=== PATIENT | male | born 1985 | race African-American/Black ===

== ENCOUNTER → 2021-02-17 | Outpatient (CLI) | payer OTHER | LOC: HYPER 10:07 | PROVIDERS: ATTEND Emergency Medicine Emergency Medical Services | DX: E10.622 Type 1 diabetes mellitus with other skin ulcer (principal); L89.314 Pressure ulcer of right buttock, stage 4; L89.220 Pressure ulcer of left hip, unstageable; L89.154 Pressure ulcer of sacral region, stage 4; L89.214 Pressure ulcer of right hip, stage 4; L89.320 Pressure ulcer of left buttock, unstageable; L98.415 Non-pressure chronic ulcer of buttock with muscle involvement without evidence of necrosis; L98.495 Non-pressure chronic ulcer of skin of other sites with muscle involvement without evidence of necrosis; E10.69 Type 1 diabetes mellitus with other specified complication; M46.28 Osteomyelitis of vertebra, sacral and sacrococcygeal region; E10.40 Type 1 diabetes mellitus with diabetic neuropathy, unspecified; E10.21 Type 1 diabetes mellitus with diabetic nephropathy; E10.649 Type 1 diabetes mellitus with hypoglycemia without coma; R26.89 Other abnormalities of gait and mobility; M62.81 Muscle weakness (generalized); D84.9 Immunodeficiency, unspecified; D47.3 Essential (hemorrhagic) thrombocythemia; D64.9 Anemia, unspecified; R63.6 Underweight; G91.9 Hydrocephalus, unspecified; H91.09 Ototoxic hearing loss, unspecified ear; M41.84 Other forms of scoliosis, thoracic region; G93.5 Compression of brain; Z90.79 Acquired absence of other genital organ(s); Z79.4 Long term (current) use of insulin; Z98.2 Presence of cerebrospinal fluid drainage device; Z48.816 Encounter for surgical aftercare following surgery on the genitourinary system; Z90.6 Acquired absence of other parts of urinary tract; Z93.2 Ileostomy status; Z85.51 Personal history of malignant neoplasm of bladder ==

== ENCOUNTER → 2021-03-17 | Outpatient (CLI) | payer OTHER | LOC: HYPER 10:04 | PROVIDERS: ATTEND Emergency Medicine Emergency Medical Services | DX: E10.622 Type 1 diabetes mellitus with other skin ulcer (principal); L89.314 Pressure ulcer of right buttock, stage 4; L89.224 Pressure ulcer of left hip, stage 4; L89.154 Pressure ulcer of sacral region, stage 4; L89.214 Pressure ulcer of right hip, stage 4; L89.320 Pressure ulcer of left buttock, unstageable; L98.415 Non-pressure chronic ulcer of buttock with muscle involvement without evidence of necrosis; L98.495 Non-pressure chronic ulcer of skin of other sites with muscle involvement without evidence of necrosis; E10.621 Type 1 diabetes mellitus with foot ulcer; L89.613 Pressure ulcer of right heel, stage 3; L97.411 Non-pressure chronic ulcer of right heel and midfoot limited to breakdown of skin; E10.69 Type 1 diabetes mellitus with other specified complication; M46.28 Osteomyelitis of vertebra, sacral and sacrococcygeal region; E10.40 Type 1 diabetes mellitus with diabetic neuropathy, unspecified; E10.21 Type 1 diabetes mellitus with diabetic nephropathy; E10.649 Type 1 diabetes mellitus with hypoglycemia without coma; R26.89 Other abnormalities of gait and mobility; M62.81 Muscle weakness (generalized); D84.9 Immunodeficiency, unspecified; D47.3 Essential (hemorrhagic) thrombocythemia; D64.9 Anemia, unspecified; R63.6 Underweight; G91.9 Hydrocephalus, unspecified; H91.09 Ototoxic hearing loss, unspecified ear; M41.84 Other forms of scoliosis, thoracic region; G93.5 Compression of brain; Z90.79 Acquired absence of other genital organ(s); Z79.4 Long term (current) use of insulin; Z98.2 Presence of cerebrospinal fluid drainage device; Z48.816 Encounter for surgical aftercare following surgery on the genitourinary system; Z90.6 Acquired absence of other parts of urinary tract; Z93.2 Ileostomy status; Z85.51 Personal history of malignant neoplasm of bladder ==

== ENCOUNTER 2021-06-03 11:15 | Inpatient (IN) | payer OTHER ==
[~2021-06-03] VITALS: Ht 152.4 cm; Wt 37.0 kg
[2021-06-03 11:16] VITALS: BP 112/68
[2021-06-03 11:40] LABS: HEMOGLOBIN 9.3 gm/dL (14.0-18.0); RBC 3.77 mil/uL (4.50-6.00); WBC 6.4 thou/uL (4.0-11.0)
[2021-06-03 11:41] LABS: ABSOLUTE NEUTROPHILS 4.6 thou/uL (1.4-8.2); EOSINOPHILS 4.7 % (0.0-3.0); HEMATOCRIT 30.3 % (42.0-52.0); LYMPHOCYTES 15.6 % (24.0-44.0); MCH 24.6 pg (26.0-34.0); MCHC 30.6 g/dL (28.0-37.0); MCV 80.4 fL (80.0-100.0); POLYS 72.7 % (36.0-66.0); RDW 20.2 % (10.5-14.5)
[2021-06-03 11:45] LABS: PLATELET COUNT 932 thou/uL (150-400)
--- NOTE | 2021-06-03 11:49 | NUR ---
IV TEAM AT BEDSIDE
[2021-06-03 11:52] LABS: ALBUMIN 1.7 g/dL (3.4-5.0); ANION GAP 7 mmol/L (7-16); BUN 23 mg/dL (7-18); CALCIUM 9.6 mg/dL (8.5-10.1); CHLORIDE 105 mmol/L (98-107); CO2 26 mmol/L (21-32); CREATININE 1.1 mg/dL (0.7-1.3); GLUCOSE 73 mg/dL (74-106); SGOT 17 U/L (15-37); SGPT 12 U/L (16-63); SODIUM 138 mmol/L (136-145); TOTAL BILIRUBIN 0.2 mg/dL (0.2-1.0); TOTAL PROTEIN 8.9 g/dL (6.4-8.2); TROPONIN-I <0.06 ng/mL (<0.06)
[2021-06-03 11:53] LABS: POTASSIUM 2.8 mmol/L (3.5-5.1)
[2021-06-03 15:20] LABS: URINE COLOR YELLOW
[2021-06-03 15:21] LABS: URINE CLARITY CLOUDY
[2021-06-03 15:22] LABS: URINE GLUCOSE-RANDOM* NEGATIVE (Negative); URINE PROTEIN (DIPSTICK) 3+ (Negative)
[2021-06-03 15:23] LABS: URINE KETONES NEGATIVE (Negative); URINE REDUCING SUBSTANCE NEGATIVE
[2021-06-03 15:24] LABS: ICTOTEST (BILI CONFIRMATORY) Negative (Negative); URINE BILIRUBIN NEGATIVE (Negative); URINE BLOOD 3+ (Negative); URINE NITRITE-REFLEX NEGATIVE (Negative)
[2021-06-03 15:25] LABS: SQUAMOUS 0-3 Few /LPF (0-3); URINE UROBILINOGEN 0.2 E.U./dl (0.2-1.0)
[2021-06-03 15:26] LABS: CASTS None Seen /LPF (None Seen); CRYSTALS None Seen /LPF (None Seen); YEAST-REFLEX Present (None Seen)
[2021-06-03 15:39] LABS: URINE LEUKOCYTES-REFLEX 3+ (Negative)
--- NOTE | 2021-06-03 15:44 | EKG ---
[address] [place] [address] ELECTROCARDIOGRAM REPORT Name: LÓPEZ BOLAND Room #: 170-7 ADM IN M.R.#: [id number] Admission: 06/03/21 Attend Phys: Sammy Arriola MD Discharge: Date of : 85 Report #: [id number] 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: : 1985 Requested By: Carlo Blanc Order Number: [id number] MD: Pako Hawley Measurements Intervals [place] Rate: 137 P: 77 CT: 120 QRS: 100 QRSD: 67 T: 38 QT: 297 QTc: 449 Interpretive Statements Sinus tachycardia Probable left atrial enlargement Right axis deviation Consider left ventricular hypertrophy Baseline wander in lead(s) V3,V4,V5 Compared to ECG 03/18/2008 18:04:41 Sinus rhythm no longer present ST (T wave) deviation no longer present Electronically Signed On 06-03-2021 15:44:25 CDT by Pako Hawley [email or web address] <ELECTRONICALLY SIGNED> By: Pako Hawley MD, FAC 06/03/21 1544 [id number] [id number] Pako Hawley MD, [facility] /EPI
[2021-06-03 19:05] VITALS: BP 112/63
[2021-06-03 19:42] VITALS: BP 113/57
[2021-06-03 20:05] VITALS: BP 113/57
[2021-06-03 20:55] VITALS: BP 136/69
[2021-06-04 00:45] VITALS: BP 109/76
[2021-06-04 04:40] LABS: CALCIUM 8.4 mg/dL (8.5-10.1); CREATININE 0.6 mg/dL (0.7-1.3); MAGNESIUM 1.8 mg/dL (1.8-2.4); POTASSIUM 4.2 mmol/L (3.5-5.1)
[2021-06-04 04:45] VITALS: BP 117/77
[2021-06-04 05:16] LABS: HEMATOCRIT 26.3 % (42.0-52.0); MCH 24.9 pg (26.0-34.0); MCHC 30.6 g/dL (28.0-37.0); MCV 81.6 fL (80.0-100.0); RBC 3.22 mil/uL (4.50-6.00); RDW 20.4 % (10.5-14.5); WBC 6.8 thou/uL (4.0-11.0)
[2021-06-04 08:00] VITALS: BP 101/59
[2021-06-04 11:30] VITALS: BP 105/71
--- NOTE | 2021-06-04 12:53 | NUR ---
Calorie count in progress recommend obtain B12, vit D and folate levels If PEG placed, use Jevity 1.5
--- NOTE | 2021-06-04 15:31 | NUR ---
JERRY faxed clincal referral to [facility] fax [phone] on this day
[2021-06-04] MEDS ORDERED: LANTUS SUBQ (16:55)
[2021-06-04] MEDS ORDERED: VITAMIN C500 M2 PO (16:58)
[2021-06-04] MEDS ORDERED: ZINC-22050 MG (17:00)
[2021-06-04] MEDS ORDERED: CHOLECAL DF 951 EACH (17:03)
[2021-06-04] MEDS ORDERED: ZOSYN 3/0.373.375 G3 (17:03)
[2021-06-04] MEDS ORDERED: BACLOFEN5 MG PORT (17:04)
[2021-06-04] MEDS ORDERED: ELIQUIS2.5 MG PO (17:04)
[2021-06-04] MEDS ORDERED: NORCO5 PO (17:05)
[2021-06-04] MEDS ORDERED: SUPER THERAVIT1 EACH (17:06)
[2021-06-04] MEDS ORDERED: LOPRESSOR50 MG PO (17:06)
[2021-06-04] MEDS ORDERED: MIRTAZAPINE7.5 MG (17:07)
--- NOTE | 2021-06-04 17:26 | NUR ---
met with patient, mother at bedside. Patient admits from [facility] technician terminal and repeater care. Sp with [facility] and requested fax updated information. Patient quadriplegic with multiple wounds. Mother reports she is searching for new placement. Gave her resources and reviewed role of casemgt. Plan return to [facility] once stable unless new placement.
[2021-06-04 20:15] VITALS: BP 128/75
[2021-06-05 00:45] VITALS: BP 100/60
--- NOTE | 2021-06-05 01:20 | NUR ---
COPS ACTIVATED FOR DECREASED LOC. PT HAD PRIOR HYPOGLYCEMIC EPISODE EARLIER IN THE NIGHT. UNABLE TO OBTAIN ACCUCHECK BY FINGER STICK. AMP D50 GIVEN X2 WITH PATIENT AWAKENING TO BASELINE NEURO STATUS. DOBHOFF PLACED TO START TF AND CONTINUOUS D10 INFUSION INITIATED. SEE RAPID RESPONSE DOCUMENTATION FOR FURTHER INTERVENTIONS. PT REMAINED ON THE UNIT.
--- NOTE | 2021-06-05 03:57 | NUR ---
PATIENTS CARE WAS ASSUMED AT SHIFT CHAGE. PATIENT WAS ASSESSED AND MEDS WERE PASSED.PATIENT HAS HAD SEVERAL BLOOD SUGAR DIPS LOW 11. 10 DEXTROSE WAS HUNG , A DOBHOOF WAS PLACED. REPORTED BY CT THAT PLACEMENT WAS GOOD A 60 CC SYRINGE OF AIR WAS PUSH TO HEAR AND VERIFY PLACEMENT. AT 0350 TUBE FEEDING STARTED AT 20, TO ADVANCE BY 10 EVERY 6 HOURS WITH GOOD RESIDULE WITH A GOAL AT 65CC/HR MAX.
[2021-06-05 04:45] VITALS: BP 123/71
[2021-06-05 08:00] VITALS: BP 100/63
--- NOTE | 2021-06-05 08:46 | NUR ---
Given extensiveness of wounds, changing tube feed recommendation to Pivot 1.5 to reach goal 40ml/hr. Pivot provides high protein as well as arginine and immune support.
--- NOTE | 2021-06-05 09:22 | NUR ---
SW spoke w/ pt's mother to discuss D/C plan and provided updated phone number for CM for today and 06/06. Pt plan is to return to [facility] upon D/C unless pt and family would like additional referrals sent to other LTC facilites
--- NOTE | 2021-06-05 09:26 | NUR ---
OSTOMY CARE; PT AWAKE, ALERT, COOPERATIVE, UROSTOMY POUCH LEAKING, NEW POUCH JANET PRECUT 1' CONVEX APPLIED, PERISTOMAL SKIN INTACT, URINE CLEAR, CONNECTED TO DEP DRAINAGE, COLOSTOMY POUCH W/ LOOSE EDGES, CHANGED USING 2 PIECE JANET CUT TO FIT APPLIANCE W/ ADAPT RING UNDER WAFER, LOOSE BROWN STOOL NOTED, PERISTOMAL SKIN INTACT, SUPPLIES AT BS, WILL CONT TO FOLLOW RECOMMENDATIONS; CHANGE POUCHES Q 3-5 DAYS AND PRN, EMPTY PRN HANDBAG OPERATOR AWARE
[2021-06-05 12:00] VITALS: BP 109/60
--- NOTE | 2021-06-05 12:15 | HC ---
[facility] [place] [address] CONSULTATION Name: LÓPEZ BOLAND Room #: 213-P ADM IN ..#: [id number] Admission: 06/04/21 Attend Phys: Sammy Arriola MD Discharge: Date of : 85 Report #: [id number] THIS REPORT FOR: cc: FAM - Family physician unknown FAM - Family physician unknown Galdino Nelson MD ~ DATE OF SERVICE: 06/04/2021 INFECTIOUS DISEASE CONSULTATION ATTENDING PHYSICIAN: Dr. Arriola. REASON FOR EVALUATION: Chronic bilateral ischial decubitus ulcers with suspected chronic osteomyelitis. The patient is profoundly malnourished. HISTORY OF PRESENT ILLNESS: The patient examined. 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 He is receiving wound care, although clinically his wounds have not improved. He has poor nutritional status with albumin less than 2. He was seen by the wound care center evaluation suggesting a benefit from supplemental feedings with a percutaneous tube placement. He was admitted due to concerns about occult infection, underwent generalized imaging which showed suspected chronic osteomyelitis involving the ischial site. Sed rate was elevated at 123 and virus testing was negative. He was initiated on empiric therapy with piperacillin, tazobactam as well as vancomycin. He is generally alert, in some moderate degree of pain and discomfort. Denies significant dyspnea or GI-related complaints. ALLERGIES: None known. CURRENT MEDICATIONS: Include insulin lispro, vancomycin, enoxaparin, famotidine, Zosyn, p.r.n. analgesics, antiemetics. PAST MEDICAL HISTORY: As described above, the common variable immune deficiency, bone marrow transplant 4 months, hydrocephalus, DIRECTOR REGULATORY AFFAIRS shunt, scoliosis, neurogenic bladder, now post cystectomy due to carcinoma, history of depression, profound hypoalbuminemia. SOCIAL HISTORY: Occasional ethanol. No illicit drug use. Nonsmoker. FAMILY HISTORY: Noncontributory. [facility] [address] [place] [address] CONSULTATION Name: LÓPEZ BOLAND Room #: 213-P [facility] IN [facility].#: [id number] Admission: 06/04/21 Attend Phys: Sammy Arriola MD Discharge: Date of : 85 Report #: [id number] REVIEW OF SYSTEMS: Otherwise unremarkable. PHYSICAL EXAMINATION: GENERAL: He is cachectic. He is seemingly comprehending. He is responsive. He is chronically ill appearing and undernourished. VITAL SIGNS: Temperature 98.5, pulse 120, respirations 18, blood pressure 105/71. SKIN: Warm, somewhat diaphoretic. HEENT: Normocephalic. Extraocular muscles intact. NECK: Supple. LUNGS: Diminished breath sounds. HEART: Tachycardic, regular. I do not appreciate a murmur. ABDOMEN: Somewhat firm, mildly distended. No peritoneal signs. GENITOURINARY AND RECTAL: Deferred. LABORATORY DATA: Urine culture with growth of Rupali tropicalis. Sed rate as described above is 120. Blood cultures sterile thus far from admission. CRP elevated at 147.1. CBC: White count of 6.8. H and H 8.0 and 26.3. Platelets of 709, that is down from 932, representing a acute phase reactant. Electrolytes: Sodium 150, up from 138. Potassium 4.2, chloride 119, bicarbonate is 21, anion gap of 10. BUN and creatinine of 14 and 0.6. Lactic acid of initially 2.0, now most recently 1.9. IMAGING: Chest showed no PEs, no significant abnormalities. Lungs are clear. CT of the pelvis: Sacral decubitus ulcers overlying the ischial tuberosities, concerning for chronic osteomyelitis. Procalcitonin 0.35 and albumin of 1.7. Total protein of 8.9. ASSESSMENT AND PLAN: Chronic bilateral ischial decubitus ulcers with concerning evidence of possible chronic osteomyelitis. He has had ongoing wound care without healing. Now the plan is I will try to optimize his nutritional status with PEG placement, seems reasonable as a diverting colostomy as well as a urostomy as well. Continue empiric therapy. In the meantime, we will follow postoperatively. Ideally, we would debride the wounds to better assess perhaps cultures, and pathology remains very tenuous at this point, certainly at risk for additional complications. We will add incentive spirometry, extended discussion with the patient and his mother. <ELECTRONICALLY SIGNED> By: Galdino Nelson MD 06/05/21 1215 1428 0002 Galdino Nelson MD /nt
[2021-06-05 12:19] LABS: CALCIUM 8.5 mg/dL (8.5-10.1); CREATININE 1.1 mg/dL (0.7-1.3); MAGNESIUM 1.6 mg/dL (1.8-2.4); POTASSIUM 3.3 mmol/L (3.5-5.1)
--- NOTE | 2021-06-05 14:34 | HC ---
[facility] [place] [address] CONSULTATION Name: LÓPEZ BOLAND Room #: 213-P ADM IN .R.#: [id number] Admission: 06/04/21 Attend Phys: Sammy Arriola MD Discharge: Date of : 85 Report #: [id number] THIS REPORT FOR: cc: FAM - Family physician unknown FAM - Family physician unknown Mika Mathur MD ~ DATE OF SERVICE: 06/04/2021 WOUND CARE CONSULTATION CHIEF COMPLAINT: Anorexia. HISTORY OF PRESENT ILLNESS: This is a 36-year-old black male who resides at [facility] who was admitted through the wound clinic yesterday after being seen by Dr. Joya for significant malnutrition and anorexia. The patient himself is somewhat of a poor historian, but has been seeing my partner, Dr. Oliveira in the wound clinic over the past several weeks for multiple wounds in his lower extremities and ischial regions. Due to the patient's medical condition, he is unable to feed himself. The patient was admitted for anorexia and malnutrition. It was felt the patient would benefit from a PEG tube. The patient and family are supposedly agreeable to this. The patient has had previous debridements of the wounds at [facility], at that time also had urostomy and diverting colostomy placed. The patient is still on PICC line and given IV Zosyn. GI has been consulted about the possible placement of a PEG tube. PAST MEDICAL HISTORY: Significant for scoliosis, hydrocephalus as a child with a PLACE CHANGE ROOF BOLTER shunt, previous bone marrow transplant, neurogenic bladder, status post urostomy and diverting colostomy as well as chronic stage 4 decubitus ulcers in the pelvic region. CURRENT MEDICATIONS: Multiple, I reviewed the patient's medication list. DRUG ALLERGIES: No known drug allergies. SOCIAL HISTORY: The patient resides in a long-term care facility. FAMILY HISTORY: Not pertinent to current medical condition. REVIEW OF SYSTEMS: CONSTITUTIONAL: The patient denies actual fevers or chills. NEUROLOGIC: The patient complains of overall generalized weakness. EYES: No complaints. EARS, NOSE AND THROAT: No complaints. CARDIAC: The patient denies chest pain, palpitations or peripheral edema. RESPIRATORY: The patient denies shortness of breath, cough or wheezes. [address] [address] CONSULTATION Name: LÓPEZ BOLAND Room #: 213-P [facility] IN ..#: [id number] Admission: 06/04/21 Attend Phys: Sammy Arriola MD Discharge: Date of : 85 Report #: [id number] GASTROINTESTINAL: The patient complains of anorexia, but no actual nausea or vomiting. The patient has a colostomy. GENITOURINARY: The patient has a urostomy. MUSCULOSKELETAL: The patient is cachectic with significant muscle wasting. SKIN: There are multiple decubitus ulcers in the bilateral ischial, coccygeal, and left greater trochanteric region. PHYSICAL EXAMINATION: VITAL SIGNS: Temperature 36.5, pulse 120, respirations 18, blood pressure 101/59. GENERAL: This is a cachectic, chronically ill-appearing black male who is in mild distress secondary to symptoms. HEENT: Normocephalic and atraumatic. Mucous membranes are somewhat dry. Pupils are round. Sclerae white. NECK: Without JVD. LUNGS: Slight diminished breath sounds heard throughout. HEART: Tachycardic. ABDOMEN: Soft, nontender. Urostomy and colostomy are in place and functioning. EXTREMITIES: The patient has severe muscle wasting on all extremities. Bilateral heels are intact. Evaluation of sacrococcygeal region reveals a stage 4 decubitus ulcer, which is fairly clean and granulating. There is also bilateral ischial ulcer, stage 4, which are a mix of fibrin, slough, and granulation tissue, but no significant necrotic tissue. Left lateral greater trochanteric region reveals a stage 4 decubitus ulcer, which is approximately 80% granulation tissue, 20% slough. NEUROLOGIC: Cranial nerves 2-12 are grossly intact. Motor and sensory grossly intact. LABORATORY DATA: White count 6.8, hemoglobin 8.0. Sed rate 120. BUN was 14, creatinine 0.6. Lactic acid was 1.9. C-reactive protein is 147. Albumin is 1.7. CT scan of the abdomen and pelvis shows the sacrococcygeal decubitus ulcers as well as right heel ulcers with CT findings consistent for chronic osteomyelitis. IMPRESSION: 1. Stage 4 sacrococcygeal decubitus ulcer with underlying osteomyelitis. 2. Bilateral ischial stage 4 decubitus ulcer with underlying osteomyelitis. 3. Right greater trochanteric decubitus ulcer, stage 4. 4. Anorexia with significant protein-calorie malnutrition with albumin of 1.8. 5. Generalized debility. 6. History of PLACE CHANGE ROOF BOLTER shunt for hydrocephalus. PLAN: At this time, GI has been consulted for PEG tube placement. We are doing a calorie count of the patient at this time as well. The patient is agreeable to the PEG tube. While the patient is here, we will use [employer] wet to dry [address] [address] CONSULTATION Name: LÓPEZ BOLAND Room #: 213-P ADM IN M.R.#: [id number] Admission: 06/04/21 Attend Phys: Sammy Arriola MD Discharge: Date of : 85 Report #: [id number] dressings to all the wounds changed twice daily, covered with an ABD. We will utilize low air loss surface, having turned every 2 hours. The patient is already in protective heel boots, which he wears all times. We will utilize physical and occupational therapies. The patient is able for strengthening. We will continue all other current medications. <ELECTRONICALLY SIGNED> By: Mika Mathur MD 06/05/21 1434 1124 [id number] Mika Mathur MD /nt
--- NOTE | 2021-06-05 15:47 | NUR ---
PT RESTING COMFORTABLY. PT AFEBRILE, ADEQUATE UOP, NO BM, GOOD APPETITE WITH ASSISTANCE. NO PEG TUBE TOMORROW DUE TO PT BEING ON ELIQUIS YESTERDAY AND TODAY. TUBE FEED ALSO BEING INFUSED BY DOBOFF TUBE. COLOSTOMY AND UROSTOMY BAGS WERE CHANGED BY OSTOMY NURSE. WILL DO WOUND CARE THIS AFTERNOON. PT AND FAMILY HAVE BEEN THOUROUGHLY UPDATED AND EDUCATED ON PT CONDITION AND POC. PT SLOWLY PROGRESSING TOWARDS POC. BLOOD SUGARS NOT UNDER CONTROL, PROVIDER AWARE.
[2021-06-05 19:25] VITALS: BP 113/55
[2021-06-06 05:04] VITALS: BP 104/75
[2021-06-06 05:26] LABS: HEMATOCRIT 25.8 % (42.0-52.0); HEMOGLOBIN 7.8 gm/dL (14.0-18.0); MCH 24.5 pg (26.0-34.0); MCHC 30.3 g/dL (28.0-37.0); MCV 80.7 fL (80.0-100.0); RBC 3.2 mil/uL (4.50-6.00); RDW 19.9 % (10.5-14.5); WBC 5.5 thou/uL (4.0-11.0)
--- NOTE | 2021-06-06 05:50 | NUR ---
ASSUMED PT CARE AT 1900, AWAKE, ALERT AND ORIENTED, ABLE TO VOICE HIS NEEDS, SR ON TELE, ASSESSMENTS CHARTED, PAIN MEDS GIVEN BEFORE DRESSING CHANGE, DRESSING CHNAGE COMPLETED, TOLERATED WELL, DUBOFF REINSERTED , AWAITING KUB, TF ON HOLD, BS STILL UNCONTROLLED IN THE 400S D10 PUT ON HOLD, MFEDS GIVEN PER MAR, ADEQUATE URINE OUTPUT, MG AND K+ REPLACED PER PROTOCOL, NO ACUTE DISTRESS NOTED, WILL CONTINUE TO MONITOR AND FOLLOW POC
[2021-06-06 05:51] LABS: CALCIUM 8.8 mg/dL (8.5-10.1); POTASSIUM 3.2 mmol/L (3.5-5.1)
[2021-06-06 08:00] VITALS: BP 91/53
--- NOTE | 2021-06-06 09:52 | NUR ---
JERRY faxed updated clinical to [facility] fax [phone] and informed [facility] liasion.
--- NOTE | 2021-06-06 10:59 | NUR ---
Pt may receive PEG placment per medical team. [facility]. W/U in progress. CM following for continuity of care.
[2021-06-06 12:40] VITALS: BP 112/62
[2021-06-06 15:08] VITALS: BP 115/74
--- NOTE | 2021-06-06 20:07 | NUR ---
ASSUMED CARE SHIFT CHANGE. VSS BP LOW THIS AM METOPROLOL HELD. SHERIF NOT IN CORRECT PLACE, SHERIF REPLACED. KUB ORDERED UNITL VERIFICATION OF TUBE. WOUND CARE COMPLETED BY WOUND RN. PICTURES TAKEN. POTASSIUM REPLACED. UPDATED FAMILY ON POC. APPETITE VERY ADEQUATE THIS SHIFT. UOP ADEQUATE. PLAN FOR POSSIBLE PEG TUBE PLACEMENT DAY TBD. CONT POC. REPORT PASSED ONTO NOC RN.
[2021-06-07 03:51] VITALS: BP 95/66
--- NOTE | 2021-06-07 06:54 | NUR ---
ASSUMED CARE OF PT AT 1900, PT A/O X 4 ASSESSMENT COMPLETED NOTED. WOUND CARE COMPLETED ORDERED, PT TOLERATED WELL WITH PAIN MEDICATION GIVEN PRIOR TO DRESSING CHANGE.TUBE FEED INITIATED AT 20MLS/HR, PT TOLERATED WELL VIA DOBHOFF. WILL CONTINUE TO WORK TOWARDS PT'S POC.
[2021-06-07 06:57] LABS: HEMATOCRIT 27.2 % (42.0-52.0); HEMOGLOBIN 8.2 gm/dL (14.0-18.0); MCH 24.3 pg (26.0-34.0); MCHC 30.2 g/dL (28.0-37.0); MCV 80.5 fL (80.0-100.0); RBC 3.37 mil/uL (4.50-6.00); RDW 19.9 % (10.5-14.5); WBC 7.3 thou/uL (4.0-11.0)
[2021-06-07 07:10] LABS: CALCIUM 8.6 mg/dL (8.5-10.1); MAGNESIUM 1.9 mg/dL (1.8-2.4); POTASSIUM 3.7 mmol/L (3.5-5.1)
[2021-06-07 07:45] VITALS: BP 105/69
[2021-06-07 11:30] VITALS: BP 95/65
--- NOTE | 2021-06-07 15:12 | NUR ---
ASSUMED CARE SHIFT CHANGE. VSS, DENIES PAIN. O2 SATS WNL RA. WOUND CARE COMPLETED PER ORDERS. TURNS. TUBE FEEDS CONTINUE. APPETITE ADEQUATE. NO S/SX ASPIRATION. PLAN FOR PEG TUBE PLACEMENT WEDNESDAY. DENIES NEEDS CURRENTLY. CONT POC. WILL PASS REPORT TO RN.
[2021-06-07 15:45] VITALS: BP 100/60
--- NOTE | 2021-06-07 16:53 | NUR ---
ASSUMED CARE AT 1600. PT VSS WNL. UROSTOMY AND COLOSTOMY IN PLACE AND FUNCTIONING WELL. PT UPDATED AND EDUCATED.
[2021-06-07 20:01] VITALS: BP 110/73
--- NOTE | 2021-06-08 03:02 | NUR ---
ASSUMED PT CARE AT 1900, AWAKE, ALERT AND ORIENTED, ST ON TELE, BP STABLE, MEDS GIVEN PER JAN, DRESSING CHNAGE COMPLETED, DENIES PAIN OR DISCOMFORT, ASSESSMENTS CHARTED, NPO AFTER MIDNIGHT FOR PEG TUBE PLACEMENT, NO NEEDS AT THIS TIME
[2021-06-08 04:17] VITALS: BP 109/75
[2021-06-08 08:53] VITALS: BP 105/68
[2021-06-08 12:00] VITALS: BP 101/63
[2021-06-08 14:47] VITALS: BP 102/68
--- NOTE | 2021-06-08 19:40 | NUR ---
ASSUMED CARE SHIFT CHANGE. VSS. DENIES PAIN. O2 SATS WNL ROOM AIR. WOUND CARE COMPLETED PER ORDERS. TURNS. PT APPETITE ADEQUATE. TUBE FEEDS REMAIN. PLAN FOR PEG TUBE TOMORROW. NPO AT MIDNIGHT. DENIES NEEDS. CONT POC. REPORT PASSED TO [place] RN.
[2021-06-08 20:00] VITALS: BP 109/75
[2021-06-09 04:00] VITALS: BP 106/58
--- NOTE | 2021-06-09 05:11 | NUR ---
PT HAS BEEN NPO SINCE MIDNIGHT FOR EGD/PEG PLACEMENT TODAY; TF OFF SINCE MIDNIGHT. C/O INTERMITTENT BUTTOCK PAIN IN WOUND AREAS. PRN PAIN MEDICATION GIVEN WITH GOOD RELIEF. COMPLETE BED BATH GIVEN DURING THE NIGHT. UROSTOMY AND COLOSTOMY APPLIANCES CHANGED THIS SHIFT THEY WERE LEAKING. DRESSINGS CHANGED TO PRESSURE WOUNDS. REPOSITIONED TO PREVENT FURTHER SKIN BREAKDOWN. PROGRESSING SLOWLY TOWARD POC GOALS. WILL CONTINUE TO MONITOR FURTHER.
[2021-06-09 08:00] VITALS: BP 94/60
[2021-06-09 10:00] LABS: HEMATOCRIT 24.6 % (42.0-52.0); HEMOGLOBIN 7.6 gm/dL (14.0-18.0); MCH 24.4 pg (26.0-34.0); MCHC 30.9 g/dL (28.0-37.0); MCV 79.1 fL (80.0-100.0); RBC 3.11 mil/uL (4.50-6.00); RDW 19.2 % (10.5-14.5); WBC 8.7 thou/uL (4.0-11.0)
--- NOTE | 2021-06-09 10:08 | EKG ---
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 : 1985 Requested By: Teetee Valencia Order Number: [id number] MD: Malvin Loera Measurements Intervals [place] Rate: 126 P: 87 [place]: 117 QRS: 108 QRSD: 62 T: 55 QT: 307 QTc: 445 Interpretive Statements Sinus tachycardia Right axis deviation Baseline wander in lead(s) II Compared to ECG 06/03/2021 11:21:41 No significant changes Electronically Signed On 06-09-2021 10:08:43 CDT by Malvin Loera [email or web address] <ELECTRONICALLY SIGNED> By: Malvin Loera MD, [facility] 06/09/21 1008 D: [id number] 3 Malvin Loera MD, [facility] /EPI
[2021-06-09 13:00] VITALS: BP 128/98
[2021-06-09 13:15] VITALS: BP 155/75
[2021-06-09 13:55] LABS: HEMATOCRIT 30.7 % (42.0-52.0); HEMOGLOBIN 9.7 gm/dL (14.0-18.0); MCH 25.2 pg (26.0-34.0); MCHC 31.6 g/dL (28.0-37.0); MCV 79.6 fL (80.0-100.0); RBC 3.86 mil/uL (4.50-6.00); RDW 19.9 % (10.5-14.5); WBC 4.4 thou/uL (4.0-11.0)
[2021-06-09 13:59] LABS: CALCIUM 9.3 mg/dL (8.5-10.1); CREATININE 0.9 mg/dL (0.7-1.3); MAGNESIUM 1.8 mg/dL (1.8-2.4)
[2021-06-09 14:14] VITALS: BP 120/87
--- NOTE | 2021-06-09 16:30 | NUR ---
ON-GOING ASSESSMENT: CM FAXED UPDATED CLINICAL TO LORETTA WYNN AT [facility] AND NOTIFIED HER. PT HAD EGD WITH PEG PLACEMENT TODAY. CM WILL CONTINUE TO FOLLOW.
[2021-06-09 17:39] LABS: HCO3 24.1 mmol/L (22.0-26.0); PCO2 41.6 mmHg (35.0-45.0); PO2 200.3 mmHg (80.0-100.0); pH 7.381 (7.360-7.450); sO2 99.3 % (92.0-98.0)
[2021-06-09 20:00] VITALS: BP 129/85
--- NOTE | 2021-06-09 20:27 | NUR ---
ASSUMED CARE SHIFT CHANGE. VSS. C/O BOTTOM PAIN MANAGED WITH IV PAIN MEDS. PLAN FOR PEG TUBE PLACEMENT THIS SHIFT. DPOA (MOTHER) WAS CONTACTED TO INFORM OF PROCEDURE, WHEN THIS RN ASKED TO GIVE CONSENT FOR PEG TUBE, MOTHER STATED THE PT IS AWARE AND IS ABLE TO SIGN FOR HIMSELF. PT SIGNED CONSENT AND WHEN EXPLAINED PT WAS UNDERSTANDING OF THE PROCEDURE AND WHY IT WAS NEEDED. S/P PEG TUBE PLACEMENT THIS SHIFT. UPON RETURN PT BECAME NAUSEOUS AND VOMITING, ZOFRAN GIVEN, PT CONT TO VOMIT AND FEEL NAUSEOUS. HR ELEVATED 140S-160S. PHYSICIAN NOTIFIED ORDERS RECEIVED. N/V RELIEF WITH ORDERED MEDS. DILT BOLUS AND GTT ORDERED PER PHYSICIAN ORDERS. HR CONTINUED TO BE ELEVATED 150S-160S WITH GTT. PHYSICIAN NOTIFIED, ORDERS FOR CARDIOLOGY CONSULT. PT SEEN BY CARDIOLOGY, PER SENIOR IT SECURITY ANALYST, BELIEVED THAT PT WAS HYPOVOLEMIC, FLUID BOLUS ORDERED. PT BECAME SOB, DURING ELEVATED HR, 2L O2 PUT ON WITH RELIEF. D DIMER LAB ELEVATED, PHYSICIAN NOTIFIED, ORDERS FOR LOVENOX RECEIVED. ABG ORDERED-REFER TO RESULTS. WOUND CARE NOT COMPLETED PT WAS OFF UNIT AND ALSO PT STATED "CAN WE DO THEM LATER WHEN I START TO FEEL BETTER." MOTHER AT BEDSIDE UPDATED ON POC. PEG TUBE FLUSHED AND MEDS GIVEN THROUGH WITH SUCCESS. DRESSING INTACT. PLAN FOR TUBE FEED INITIATION TOMORROW PER PHYS ORDERS. PT CURRENTLY AWAKE IN BED IN NAP. REPORT PASSED TO NOC RN.
[2021-06-10 04:00] VITALS: BP 116/80
--- NOTE | 2021-06-10 04:23 | NUR ---
Patient making slow progress towards outcome goals. High fall risks, fall precautions in place. Wound care done, turned to sides. Peg intact, used for medications. Nausea and vomiting, relief from Zofran. No food intake. Insulin held, blood sugars monitored. Colostomy draining, intact, Urostomy draining, intact. Tachycardic up to 150, baseline rate 120-130/minute. Morphine given for comfort, heart rate 120's now, rhythm Sinus.
--- NOTE | 2021-06-10 07:15 | EKG ---
[address] [place] [address] ELECTROCARDIOGRAM REPORT Name: LÓPEZ BOLAND Room #: 213-P ADM IN M.R.#: [id number] Admission: 06/04/21 Attend Phys: Sammy Arriola MD Discharge: Date of : 85 Report #: [id number] 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: [id number] : 1985 Requested By: Yeison Gao Order Number: [id number] : Pako Hawley Measurements Intervals [place] Rate: 155 P: 70 KS: 127 QRS: 96 QRSD: 61 T: -43 QT: 253 QTc: 407 Interpretive Statements Sinus tachycardia Borderline right axis deviation Consider left ventricular hypertrophy Borderline T abnormalities, inferior leads Compared to ECG 06/09/2021 16:23:19 T-wave abnormality now present ST (T wave) deviation no longer present Electronically Signed On 06-10-2021 7:15:42 CDT by Pako Hawley [email or web address] <ELECTRONICALLY SIGNED> By: Pako Hawley MD, [facility] 06/10/2115 20 20 Pako Hawley MD, [facility] /EPI
--- NOTE | 2021-06-10 07:15 | EKG ---
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 : 1985 Requested By: Sammy Arriola Order Number: [id number] MD: Pako Hawley Measurements Intervals [place] Rate: 153 P: 69 RI: 98 QRS: 102 QRSD: 106 T: 39 QT: 285 QTc: 455 Interpretive Statements Sinus tachycardia Right axis deviation RSR' in V1 or V2, probably normal variant Artifact in lead(s) V3,V5,V6 and baseline wander in lead(s) V3 Compared to ECG 06/09/2021 09:44:53 RSR' in V1 or V2 now present Electronically Signed On 06-10-2021 7:15:32 CDT by Pako Hawley [email or web address] <ELECTRONICALLY SIGNED> By: Pako Hawley MD, [facility] 06/10/21 0715 1623 1623 Pako Hawley MD, [facility] /EPI
--- NOTE | 2021-06-10 07:27 | NUR ---
Hypoglycemia 48, patient alert but unable to drink liquids now. 1 amp D50 given.
[2021-06-10 08:00] VITALS: BP 101/62
--- NOTE | 2021-06-10 08:15 | NUR ---
When ready to use PEG, restart Pivot 1.5 at 20ml/hr and progress to goal of 40ml/hr. If pt drinking adequately, suggest discontinue IVF and flush PEG with water as needed. Otherwise will need 200ml every 6hr if minimal fluid consumption.
[2021-06-10 09:38] LABS: MCH 24.2 pg (26.0-34.0); MCHC 29.7 g/dL (28.0-37.0); MCV 81.4 fL (80.0-100.0); RDW 19.2 % (10.5-14.5)
[2021-06-10 10:29] LABS: HEMOGLOBIN 7.7 gm/dL (14.0-18.0); PLATELET COUNT 491 thou/uL (150-400); WBC 19.4 thou/uL (4.0-11.0)
[2021-06-10 11:45] LABS: ABSOLUTE NEUTROPHILS 17.8 thou/uL (1.4-8.2); PLATELET ESTIMATE NORMAL
[2021-06-10 12:00] VITALS: BP 103/73
--- NOTE | 2021-06-10 14:49 | NUR ---
ON-GOING ASSESSMENT: CM REVIEWED CHART. PT HAD PEG PLACED 06/09. CM DAXED UPDATED CLINICAL TO TIANNA BURGOS AT [facility] AND ALSO FAXED SUPERVISOR COMPOUNDING AND FINISHING NOTE OF RECS WHEN ABLE TO USE PEG. CM WILL CONTINUE TO FOLLOW TO ASSIST NEEDED.
[2021-06-10 15:35] VITALS: BP 112/92
--- NOTE | 2021-06-10 15:49 | 2DMMODE ---
[facility] [place] [address] 2 D/M-MODE ECHOCARDIOGRAM Name: LÓPEZ BOLAND Room #: 213-P ADM IN M.R.#: [id number] Admission: 06/04/21 Attend Phys: Sammy Arriola MD Discharge: Date of : 85 Report #: [id number] THIS REPORT FOR: cc: FAM - Family physician unknown FAM - Family physician unknown Pako Hawley MD [facility] ~ APPROVED REPORT Study performed: 06/10/2021 14:27:49 EXAM: Comprehensive 2D, Doppler, and color-flow Echocardiogram Patient Location: Bedside Room #: 213 Status: routine BSA: 1.28 HR: 109 bpm BP: 103/73 mmHg Rhythm: Tachycardia Other Information Study Quality: Adequate Indications Diabetes Tachycardia Aortic Valve AoV Peak Lewis.: 1.07 m/s AO Peak Gr.: 4.56 mmHg LVOT Max P.68 mmHg LVOT Max V: 0.82 m/s Pulmonary Valve PV Peak Lewis.: 0.64 m/s PV Peak Gr.: 1.62 mmHg Left Ventricle The left ventricle is normal size. There is normal LV segmental wall motion. There is normal left ventricular wall thickness. Left ventricular systolic function is normal. The left ventricular ejection fraction is within the normal range. LVEF is 55-60%. This study is not technically sufficient to allow evaluation of the LV diastolic function. Right Ventricle The right ventricle is normal size. The right ventricular systolic [facility] [address] [place] [address] 2 D/M-MODE ECHOCARDIOGRAM Name: LÓPEZ BOLAND Room #: 213-P ADM IN M.R.#: [id number] Admission: 06/04/21 Attend Phys: Sammy Arriola MD Discharge: Date of : 85 Report #: [id number] function is normal. Atria The left atrium size is normal. The right atrium size is normal. Aortic Valve The aortic valve is normal in structure. No aortic regurgitation is present. There is no aortic valvular stenosis. Mitral Valve The mitral valve is normal in structure. There is no mitral valve regurgitation noted. No evidence of mitral valve stenosis. Tricuspid Valve The tricuspid valve is normal in structure. There is no tricuspid valve regurgitation noted. Pulmonic Valve The pulmonary valve is normal in structure. There is no pulmonic valvular regurgitation. Great Vessels The aortic root is normal in size. IVC is normal in size and collapses >50% with inspiration. Pericardium There is no pericardial effusion. <Conclusion> Normal left ventricular size/wall thickness Ejection fraction 60% Normal right ventricular size/function Normal aortic/mitral valve structure and function No tricuspid valve insufficiency No pericardial effusion Normal aortic root size. <ELECTRONICALLY SIGNED> By: Pako Hawley MD, [facility] 06/10/21 1549 [id number] [id number] Pako Hawley MD, FACC /INF
[2021-06-10 20:25] VITALS: BP 106/67
[2021-06-10 23:43] LABS: URINE BILIRUBIN NEGATIVE (Negative); URINE BLOOD TRACE (Negative); URINE CLARITY CLEAR; URINE COLOR YELLOW; URINE GLUCOSE-RANDOM* NEGATIVE (Negative); URINE KETONES NEGATIVE (Negative); URINE NITRITE-REFLEX NEGATIVE (Negative); URINE PROTEIN (DIPSTICK) NEGATIVE (Negative); URINE SPECIFIC GRAVITY 1.015 (1.005-1.035); URINE UROBILINOGEN 0.2 E.U./dl (0.2-1.0)
[2021-06-10 23:55] LABS: URINE LEUKOCYTES-REFLEX 1+ (Negative)
[2021-06-11] LABS: SQUAMOUS 0-3 Few /LPF (0-3); URINE RBC 1-2 Rare /HPF (NONE SEEN); URINE WBC-REFLEX 6-15 Few /HPF (0-5)
[2021-06-11 00:01] LABS: CASTS None Seen /LPF (None Seen); CRYSTALS None Seen /LPF (None Seen); MUCUS 0-3 Light strn/LPF (None Seen); YEAST-REFLEX Present (None Seen)
[2021-06-11 04:55] VITALS: BP 108/62
[2021-06-11 07:30] VITALS: BP 96/59
--- NOTE | 2021-06-11 07:40 | NUR ---
ASSUMED CARE OF PT AT 1900, PT IS LETHARGIC WITH MOM AT THE BEDSIDE. ASSESSMENT COMPLETED NOTED. PT WAS SLOW TO RESPOND TO QUESTIONS, DENIES PAIN AT THIS TIME. PT BECAME MORE ALERT T/O SHIFT ABLE TO RESPOND APPROPRIATELY TO ALL QUESTIONS AND STATE NEEDS. PT WAS FEBRILE, MEDICATION GIVEN AND TEMPERATURE DECREASED WNL. TF WAS INCREASED TO 30ML/HR, PT TOLEREATED WELL. WOUND CARE COMPLETED ORDERED. WILL CONTINUE TO WORK TOWARDS POC.
[2021-06-11 11:30] VITALS: BP 91/52
[2021-06-11 15:52] VITALS: BP 101/67
--- NOTE | 2021-06-11 16:19 | NUR ---
FAXED CLINICAL UPDATE AND NEGATIVE COVID RESULT (06/03/21) TO [facility]. [facility] PATIENT. WILL CONFIRM WITH TIANNA/LIAISON THAT SHE RECEIVED. [facility] P [phone]; FAX [phone]; M [phone]
--- NOTE | 2021-06-11 18:02 | NUR ---
Spoke with mother and discussed possible dc to [facility] in am. Updated [facility]. [facility] following
[2021-06-11 20:15] VITALS: BP 94/56
--- NOTE | 2021-06-11 20:25 | NUR ---
RECEIVED THE PATIENT ON BED, CONSCIOUS AND ORIENTED.ON NASAL CANNULA AT 1LPM, SATURATING WELL.NOT IN DISTRESS,TURNED PATIENT SCHEDULED.WOUND DRESSING DONE ASEPTICALLY.COLOSTOMY CARE AND UROSTOMY CARE DONE.PATIENT TOLERATED PEG FEEDING WITH NO RESIDUAL, INCREASED PEG FEEDING TO 40MLS/HR AT 1600H.ALL NEEDS ATTENDED.HANDED OVER TO PI[employer] SALESPERSON FOR FURTHER CARE.
[2021-06-12] VITALS (8 sets, daily range): BP systolic 100–114; BP diastolic 62–72
--- NOTE | 2021-06-12 07:51 | NUR ---
assumed pt care at 1900, pt is awake, alert and oriented, st on tele, denies pain or sob, tf infusing at 40 ml/hr, 100cc residual and nausea noted, relieved by zofran x1, hr in the 130s this am, am lopressor given early, assessmensts as charted, passed on report to day nurse
--- NOTE | 2021-06-12 10:00 | NUR ---
OSTOMY CARE; POUCHES INTACT, NO LEAKAGE, PT STATES CHANGED YESTERDAY, SUPPLIES PLACED AT FOUNDATION ENGINEER INFORMED
--- NOTE | 2021-06-12 14:53 | NUR ---
[facility] UPDATED ON NEED FOR PEG CARE/IV ATB X 3/WOUND CARE. [facility] REFERRAL DISCUSSED WITH THE ATTENDING AND ID. THEY ARE IN AGREEMENT. MECHANICAL CAR CHECKER SPOKE WITH THE PT AT BEDSIDE. HIS MOTHER IS NOT HERE AT THIS TIME. HE HAS BEEN TO [facility]FORE. THE PT DOES HAVE 9 ACUTE HOSPITAL DAYS/60 LIFE TIME RESERVE DAYS AND SECONDARY [place] MEDICAID. HE IS AGREEABLE IF THEY CAN ACCEPT. FACE SHEET FAXED TO THEIR [facility] TO CHECK BENEFITS AND SEE IF THEY CAN ACCEPT HIM AGAIN. [facility] AGREEABLE TO [facility] STAY BEFORE RETURNING THERE. AWAITING RESPONSE FROM [facility]. PT'S MOTHER UPDATED VIA PHONE AND AGREEABLE TO [facility] OR ANOTHER [facility] IF HE QUIALIFIES.
--- NOTE | 2021-06-12 16:33 | NUR ---
Patient c/o nausea, given PRN zofran with some relief. Checked residual at 1625 d/t continued c/o nausea. 350cc residual at that time. Tube feeds stopped and Dr. Zeinab davis. No response at this time.
[2021-06-12 17:05] LABS: ABSOLUTE NEUTROPHILS 8.4 thou/uL (1.4-8.2); BASOPHILS 0.5 % (0.0-2.0); EOSINOPHILS 0.3 % (0.0-3.0); HEMATOCRIT 26.2 % (42.0-52.0); HEMOGLOBIN 7.6 gm/dL (14.0-18.0); LYMPHOCYTES 4.8 % (24.0-44.0); MCH 24.7 pg (26.0-34.0); MCV 85.2 fL (80.0-100.0); MONOCYTES 5.1 % (1.0-8.0); PLATELET COUNT 474 thou/uL (150-400); POLYS 89.3 % (36.0-66.0); RBC 3.08 mil/uL (4.50-6.00); RDW 19.4 % (10.5-14.5); WBC 9.4 thou/uL (4.0-11.0)
[2021-06-12 17:24] LABS: ALBUMIN 1.4 g/dL (3.4-5.0); CALCIUM 8.5 mg/dL (8.5-10.1); CREATININE 0.8 mg/dL (0.7-1.3); POTASSIUM 3.1 mmol/L (3.5-5.1); TOTAL BILIRUBIN 0.4 mg/dL (0.2-1.0); TOTAL PROTEIN 6.3 g/dL (6.4-8.2)
--- NOTE | 2021-06-12 17:30 | NUR ---
Patient had low blood sugar at dinnertime. Patient asymptomatic with these blood sugars with only complaint was nausea, which was present since 11am this morning. Dr. Zeinab davis, no response currently.
--- NOTE | 2021-06-12 17:48 | NUR ---
No response from Dr. Arriola. Dr. Loera here to assess patient. Ok to start D5W at 50cc/hr in addition to current IVF to prevent hypoglycemia since patient is unable to tolerate TF at this time.
--- NOTE | 2021-06-13 05:00 | NUR ---
assumed pt care at change of shift, st on tele, hr in the 130s, denies palpitations or sob, business asst notified, EKG obtained, no new orders received, abdomen firm with nausea and vomiting noted, zofran given with relief, order for KUB and reglan obtained, tube feeding still on hold, 200cc residual from peg tube, pt had a bowel movement, obtained an order for fms, 450 cc of liquid stool emptied from the colostomy, colostomy bag changed this shift, wound care completed, pt tolerated well, bs 49 at 2100, d5 given, fluids changed, bs stable, will continue to monitor closely, no needs at this time, will continue to monitor and follow poc
[2021-06-13 05:17] VITALS: BP 96/60
--- NOTE | 2021-06-13 07:19 | EKG ---
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 : 1985 Requested By: Alanis Headley Order Number: [id number] MD: Pako Hawley Measurements Intervals [place] Rate: 135 P: 67 FL: 121 QRS: 78 QRSD: 67 T: 58 QT: 278 QTc: 417 Interpretive Statements Sinus tachycardia Consider left ventricular hypertrophy Compared to ECG 06/09/2021 18:21:59 T-wave abnormality no longer present Electronically Signed On 06-13-2021 7:18:58 CDT by Pako Hawley [email or web address] <ELECTRONICALLY SIGNED> By: Pako Hawley MD, [facility] 06/13/21717 D: 07/113 3 Pako Hawley MD, FACC /EPI
[2021-06-13 07:45] VITALS: BP 91/54
[2021-06-13 08:21] LABS: CALCIUM 8.7 mg/dL (8.5-10.1); CREATININE 0.9 mg/dL (0.7-1.3)
[2021-06-13 08:32] LABS: POTASSIUM 2.7 mmol/L (3.5-5.1)
[2021-06-13 09:05] LABS: ABSOLUTE NEUTROPHILS 8.1 thou/uL (1.4-8.2); RBC 2.68 mil/uL (4.50-6.00); WBC 9.4 thou/uL (4.0-11.0)
[2021-06-13 09:08] LABS: BASOPHILS 0.1 % (0.0-2.0); EOSINOPHILS 0.6 % (0.0-3.0); HEMATOCRIT 21.5 % (42.0-52.0); LYMPHOCYTES 3.3 % (24.0-44.0); MCH 24.5 pg (26.0-34.0); MCHC 30.5 g/dL (28.0-37.0); MONOCYTES 9.7 % (1.0-8.0); PLATELET COUNT 442 thou/uL (150-400); POLYS 86.3 % (36.0-66.0); RDW 18.8 % (10.5-14.5)
[2021-06-13 09:11] LABS: HEMOGLOBIN 6.6 gm/dL (14.0-18.0); MCV 80.2 fL (80.0-100.0)
[2021-06-13 09:20] LABS: ALBUMIN 1.2 g/dL (3.4-5.0); MAGNESIUM 1.6 mg/dL (1.8-2.4); TOTAL BILIRUBIN 0.5 mg/dL (0.2-1.0); TOTAL PROTEIN 6.5 g/dL (6.4-8.2)
--- NOTE | 2021-06-13 11:21 | NUR ---
Recommend daily bowel regimen to promote daily stools Recommend resume tube feed at 20ml/hr when able and progress back to goal of 40ml/hr if tolerated
[2021-06-13 11:33] LABS: ANISOCYTOSIS 1+; PLATELET ESTIMATE NORMAL
[2021-06-13 11:34] LABS: HYPOCHROMASIA 2+; SCHISTOCYTES 1+; TARGET CELLS 1+
[2021-06-13 13:05] VITALS: BP 107/71
--- NOTE | 2021-06-13 13:46 | NUR ---
VAT CONSULTED FOR PICC PLACEMENT. RIGHT BRACHIAL PICC LINE ATTEMPTED, PER HOSPITAL PICC PLACEMENT POLICY. WOULD NOT THREAD PAST SHOULDER. LEFT IJ 6FR JACC CATHETER PLACED, TRIMMED 25CM WITH 8CM EXTERNAL. RADIOLOGY REPORT THAT LINE TIP TRAJECTS ALONG LEFT SPINE AND CT RECOMMENDED FOR CONFIRMATION. APPEARS TO BE LEFT-SIDED SVC. WILL EITHER NEED TO HAVE IR INJECT FLOURO VIA LINE, FOR CONFIRMATION, OR CT OF CHEST. ALL LUMENS FLUSH WELL AND RETURN BLOOD BRISKLY.
--- NOTE | 2021-06-13 15:11 | NUR ---
POTASSIUM AND MAGNESIUM REPLACEMENT ORDERED THIS MORNING. 1U PRBC ORDERED FOR HGB 6.6, NO SIGNS OF BLEEDING, VITAL SIGNS STABLE. PICC LINE ORDERED PATIENT HAD ONE SITE ACCESS. VASCULAR ACCESS NURSE ATTEMPTED FOR PICC, BUT WAS UNSUCCESSFUL. L IJ PLACED, CXRAY FOR CONFIRMATION OF PLACEMENT WASN'T ABLE TO DISCERN PLACEMENT. IR WAS CONSULTED FOR ASSISTENCE, CT CHEST PLACED.
[2021-06-13 15:33] VITALS: BP 100/66; BP 110/60
--- NOTE | 2021-06-13 15:49 | NUR ---
L IJ PLACEMENT VERIFIED IN PLACE AND OKAY TO USE VIA TELEPHONE ORDER FROM DR. CACERES. TRANSFUSION OF FIRST UNIT OF PRBC STARTED AT 1530.
[2021-06-13 16:30] VITALS: BP 114/68
--- NOTE | 2021-06-13 16:40 | NUR ---
FAXED REFERRAL AND NEGATIVE COVID RESULT (06/03/21) TO [facility]. WILL CONFIRM WITH CORNELIO/LIAISON THAT THEY RECEVIED AND AVAILABILITY. [facility] P [phone]; FAX
--- NOTE | 2021-06-13 17:32 | NUR ---
[facility] accepted [place] medicare days. They will f/u Wednesday and anticipate having a bed then if he is medically stable. Critical labs today and getting a line placed per IR and one unit of blood. Will f/u with all parties on Wednesday.
[2021-06-13 20:25] VITALS: BP 93/48
[2021-06-13 21:15] LABS: CALCIUM 8.5 mg/dL (8.5-10.1); CREATININE 0.9 mg/dL (0.7-1.3); MAGNESIUM 2.2 mg/dL (1.8-2.4)
[2021-06-13 21:18] LABS: POTASSIUM 2.9 mmol/L (3.5-5.1)
[2021-06-14 01:06] LABS: GLYCOHEMOGLOBIN (HGB A1C) 7.3 % (4.8-5.6)
--- NOTE | 2021-06-14 03:27 | NUR ---
Assumed pt care at 1900. Pt is alert and oriented. Non ambulatory. Denies any pain. No sign of distress noted in pt. Assessment completed and documented. Wound care changes done. Scheduled meds administered to pt. No acute event through the night. Continue to monitor. No further needs at this time.
[2021-06-14 04:53] VITALS: BP 112/79
[2021-06-14 07:15] LABS: ABSOLUTE NEUTROPHILS 7.8 thou/uL (1.4-8.2); BASOPHILS 0.1 % (0.0-2.0); EOSINOPHILS 0.7 % (0.0-3.0); HEMATOCRIT 26.5 % (42.0-52.0); HEMOGLOBIN 8.3 gm/dL (14.0-18.0); LYMPHOCYTES 3.2 % (24.0-44.0); MCH 25.3 pg (26.0-34.0); MCHC 31.5 g/dL (28.0-37.0); MCV 80.5 fL (80.0-100.0); MONOCYTES 10.7 % (1.0-8.0); PLATELET COUNT 474 thou/uL (150-400); POLYS 85.3 % (36.0-66.0); RBC 3.29 mil/uL (4.50-6.00); RDW 17.7 % (10.5-14.5); WBC 9.2 thou/uL (4.0-11.0)
[2021-06-14 07:18] LABS: CALCIUM 8.2 mg/dL (8.5-10.1); CREATININE 0.9 mg/dL (0.7-1.3); PHOSPHORUS 1.6 mg/dL (2.6-4.7); POTASSIUM 3.3 mmol/L (3.5-5.1)
[2021-06-14 08:27] VITALS: BP 107/68
--- NOTE | 2021-06-14 11:11 | NUR ---
DISCUSSED WITH DR. VARGAS THAT PATIENT TOLERATED CLEAR LQ DIET OVERNIGHT AND ASKED IF HE WOULD LIKE FOR PATIENT TO BE STARTED BACK ON TUBE FEEDS TODAY. HE ORDERED FOR TFS TO START AT 10ML/HR AND TO ADVANCE 13-4 HOURS BY 10 ML/HR FOR A GOAL OF 40/HR. NO WATER FLUSHES ORDERED. I ALSO MENTIONED AGAIN THE LIQUID STOOL COMING FROM FMS WELL COLONOSCOPY. WILL CONTINUED TO MONITOR, HE ASSESSED PATIENT. APPROX 1HR AFTER CLEAR LQ BREAKFAST (~600ML) PATIENT NOTIFIED THIS RN THAT HE WAS NAUSEATED AND REQUESTED FOR AN EMESIS BASIN. IV ZOFRAN GIVEN ONCE. NO EPISODES OF VOMITING. WILL CONTINUE TO MONITOR AND HOLD TFS AND REASSESS THIS AFTERNOON.
[2021-06-14 11:21] VITALS: BP 112/78
[2021-06-14 16:19] VITALS: BP 103/67
[2021-06-14 21:14] VITALS: BP 95/55
--- NOTE | 2021-06-15 03:50 | NUR ---
Assumed pt care at 1900. Pt is alert and oriented. No sign of distress noted in pt. Assessment completed and documented. Reposisitioning done. Scheduled meds administered to pt. Pain med administered upon request. Continue to monitor. No further needs at this time.
[2021-06-15 04:19] VITALS: BP 91/57
[2021-06-15 07:10] LABS: ABSOLUTE NEUTROPHILS 7.5 thou/uL (1.4-8.2); BASOPHILS 0.3 % (0.0-2.0); EOSINOPHILS 1.3 % (0.0-3.0); HEMATOCRIT 24.5 % (42.0-52.0); HEMOGLOBIN 7.8 gm/dL (14.0-18.0); LYMPHOCYTES 3.1 % (24.0-44.0); MCH 25.5 pg (26.0-34.0); MCHC 31.6 g/dL (28.0-37.0); MCV 80.8 fL (80.0-100.0); MONOCYTES 10.9 % (1.0-8.0); PLATELET COUNT 453 thou/uL (150-400); POLYS 84.4 % (36.0-66.0); RBC 3.04 mil/uL (4.50-6.00); RDW 17.8 % (10.5-14.5); WBC 8.8 thou/uL (4.0-11.0)
[2021-06-15 07:25] LABS: ALBUMIN 1.2 g/dL (3.4-5.0); CALCIUM 8.4 mg/dL (8.5-10.1); MAGNESIUM 1.9 mg/dL (1.8-2.4); PHOSPHORUS 2.6 mg/dL (2.6-4.7); TOTAL BILIRUBIN 0.3 mg/dL (0.2-1.0); TOTAL PROTEIN 6.1 g/dL (6.4-8.2)
[2021-06-15 07:32] LABS: POTASSIUM 2.1 mmol/L (3.5-5.1)
[2021-06-15 08:10] VITALS: BP 96/60
[2021-06-15 11:26] VITALS: BP 105/57
--- NOTE | 2021-06-15 18:20 | NUR ---
VERBAL ORDER OBTAINED FROM DR. CARLSON FOR REMOVAL OF MIDLINE ACCESS
[2021-06-16 04:58] VITALS: BP 106/54
--- NOTE | 2021-06-16 06:12 | NUR ---
PATIENT WAS TURNED EVERY TWO TO THREE HOURS. CHORES WERE GROUPED SO THE PATIENT COULD GET BETTER SLEEP. PATIENT CARES WERE ASSUMED AT SHIFT CHANGE. PATIENT WAS ASSESSED AND MEDS WERE PASSED. DRESSING CHANGES WERE DONE THIS SHIFT TO THE FOUR WOUNDS ON HIS BOTTOM. THIS WAS DONE WET TO DRY ORDERED. ROUNDS WERE DONE. BED ALARM IS ON. PATIENT CONTINUES TO APPER EMACIATED. PILLOWS PLACE UNDER HIS BOTTOM FOR COMFORT.
[2021-06-16 09:02] VITALS: BP 103/97
[2021-06-16 09:53] LABS: BASOPHILS 0.2 % (0.0-2.0); EOSINOPHILS 0.8 % (0.0-3.0); HEMATOCRIT 26.1 % (42.0-52.0); HEMOGLOBIN 8.3 gm/dL (14.0-18.0); MCH 25.6 pg (26.0-34.0); MCHC 31.7 g/dL (28.0-37.0); MCV 80.6 fL (80.0-100.0); MONOCYTES 7.6 % (1.0-8.0); POLYS 89.4 % (36.0-66.0); RBC 3.24 mil/uL (4.50-6.00); RDW 17.7 % (10.5-14.5); WBC 13.4 thou/uL (4.0-11.0)
[2021-06-16 09:54] LABS: PLATELET COUNT 537 thou/uL (150-400)
[2021-06-16 09:58] LABS: CALCIUM 8.3 mg/dL (8.5-10.1); CREATININE 0.8 mg/dL (0.7-1.3); POTASSIUM 3.8 mmol/L (3.5-5.1)
[2021-06-16 10:04] LABS: ALBUMIN 1.3 g/dL (3.4-5.0); MAGNESIUM 1.7 mg/dL (1.8-2.4); TOTAL BILIRUBIN 0.3 mg/dL (0.2-1.0); TOTAL PROTEIN 6.9 g/dL (6.4-8.2)
--- NOTE | 2021-06-16 12:50 | NUR ---
VAT ROUNDING TODAY, LEFT MIDLINE WAS ORDERED TO BE REMOVED YESTERDAY. IT WAS NOT DONE SO REMOVED NOW
--- NOTE | 2021-06-16 13:06 | NUR ---
FAXED CLINICAL UPDATES TO [facility]. WILL CONFIRM WITH CORNELIO/LIAISON THAT THEY RECEIVED AND BED AVAILABILITY. [facility] P [phone]; FAX
[2021-06-16 16:35] VITALS: BP 116/69
[2021-06-16 19:01] LABS: CALCIUM 8.7 mg/dL (8.5-10.1); CREATININE 0.9 mg/dL (0.7-1.3); MAGNESIUM 1.7 mg/dL (1.8-2.4); POTASSIUM 3.9 mmol/L (3.5-5.1)
[2021-06-17 07:24] LABS: ALBUMIN 1.4 g/dL (3.4-5.0); CALCIUM 8.3 mg/dL (8.5-10.1); CREATININE 0.8 mg/dL (0.7-1.3); MAGNESIUM 1.8 mg/dL (1.8-2.4); PHOSPHORUS 2.2 mg/dL (2.5-4.9); POTASSIUM 3.3 mmol/L (3.5-5.1); TOTAL BILIRUBIN 0.2 mg/dL (0.2-1.0); TOTAL PROTEIN 7.4 g/dL (6.4-8.2)
[2021-06-17 07:55] VITALS: BP 109/65
--- NOTE | 2021-06-17 08:03 | NUR ---
PATIENT CARES WERE ASSUMED AT SHIFT CHANGE. PATIENT WAS ASSESSED AND MEDS WERE PASSED.PATIENT DID LOSE MORE WEIGHT FROM YESTERDAY TO TODAY. WT IS DOCUMENTED 82.2 TODAY. PATIENT CONTINUES TO STRUGAL TO GAIN MAAME. DRESSING WERE NOT DONE THIS SHIFT DUE TO THE NURSE THOUGHT THE DAKINS SOLUTION WAS IN CS AND IT WAS REPORTED IT IS WITH THE PHARMACY. LABS WEE DONE. PATIENT IS A/OX4 ACCU CHEECK IS Q4. ROUNDS WERE MADE. THE BED IS IN A LOW AND LOCKED POSITION
--- NOTE | 2021-06-17 08:26 | NUR ---
Note TPN has been started until tube feed tolerance demonstrated. Recommend to continue to trial tube feeds at trickle feed of 5-10 ml per hour.
[2021-06-17 11:30] VITALS: BP 91/53
[2021-06-17 15:55] VITALS: BP 109/68
[2021-06-17 19:56] VITALS: BP 94/60
[2021-06-18 05:09] LABS: CALCIUM 8.8 mg/dL (8.5-10.1); CREATININE 0.7 mg/dL (0.7-1.3); MAGNESIUM 1.9 mg/dL (1.8-2.4); PHOSPHORUS 2.4 mg/dL (2.5-4.9)
[2021-06-18 05:17] VITALS: BP 111/73
--- NOTE | 2021-06-18 05:41 | NUR ---
PT ORIENTEDX4, FOLLOWS, ABLE TO INTERACT WITH STAFF. ENDORSES PAIN IN HEAD AND BUTTOCKS, GIVEN MEDS PER MAR. UROSTOMY BAG CHANGED, ORDERS PUT IN FOR SUPPLIES FOR COLOSTOMY BAG, BATH GIVEN, PT TOLERATED WOUND CHANGES WELL.
[2021-06-18 08:24] VITALS: BP 95/55
[2021-06-18 11:25] VITALS: BP 102/56
--- NOTE | 2021-06-18 15:26 | NUR ---
ON-GOING ASSESSMENT: ESTUARDO SPOKE WITH SW ON THE UNIT. CM FAXED UPDATED CLINICAL TO [facility] AND NOTIFIED CORNELIO IN ADMISSIONS WHO REPORTS THEY ARE JUST AWAITING A BED TO OPEN AND PT IS 6TH ON THE LIST TODAY SHE REPORTS AND ANTICIPATE THEY WILL HAVE A BED SOON. CM WILL CONTINUE TO FOLLOW TO ASSIST NEEDED.
--- NOTE | 2021-06-18 20:18 | NUR ---
ASSESSMENT CHARTED - MEDS PER JAN - PT GIVEN HYDROCODONE FOR PAIN IN BOTTOM AREA WITH MOD EFFECT. PT TURNED . ACCUCHECKS CHRATED - COVERED PER SLIDING SCALE. FECAL MANAGMENT SYSTEM REMAINS INSITU. PETG TUBE FEEDING AT 30 CC FOR THE DAY - TURNED UP TO 40CC AT 1800 AFTER TOLERATING AT 30CC. PT NEEDING TO BE FEED - EATS APPROX 50 -75 % OF MEALS. PRAFO BOOTS INSTU. NO CO'S OF NAUSEA. MOTHER INTO VISIT. WILL BE TRANSFERED TO [facility] WHEN BED AVIALABLE.
[2021-06-18 20:50] VITALS: BP 94/50
[2021-06-19 03:09] VITALS: BP 92/53
[2021-06-19 07:53] VITALS: BP 95/61
--- NOTE | 2021-06-19 11:16 | NUR ---
Vascular access team rounding- central line dressing again loose and line exposed. VAT attempted PICC lines that were unsuccessful due to chronic occlusions- see CT report. Recomend Tunnelled access by IR due to the need for correction access and the inability to keep the dressing occlusive on the neck, leading to a higher risk of a blood stream infection.
[2021-06-19 11:46] VITALS: BP 114/63
[2021-06-19 16:50] VITALS: BP 115/69
--- NOTE | 2021-06-19 16:58 | NUR ---
Spoke with the [facility] this morning. Pt still on the wait list with several ahead of him. They will update in the am regarding if they think they will have a bed open for him in the next day or two. Will follow.
[2021-06-19 17:19] LABS: CALCIUM 8.3 mg/dL (8.5-10.1); PHOSPHORUS 2.2 mg/dL (2.5-4.9); POTASSIUM 3.8 mmol/L (3.5-5.1)
--- NOTE | 2021-06-19 19:42 | NUR ---
ASSESSMENT CHARTED - MEDS PER JAN -- GIVEN HYDROCODONE X 1 DOSE FOR PAIN WITH GOOD RELIEF - PT SLEEPING POST ADMINISTRATION. FRANCIS SMALL AMOUNTS OF DIET AND FLUIDS. PEG TUBE FEEDINGS CONTINUE AT 40 CC FRANCIS WELL NO CO'S OF NAUSEA - CONTINUE TO GET REGLAN Q 6. LIJ TL WITH BLUE PORT NOT WORKING IV THERAPY NOTIFIED AND CATH CORAL PLACED. ACCUCHECKS CHARTED - PT REFUSED SSI AT NOON HE DID NOT WISH TO EAT - WOUND CARE COMPLETED BY NIGHTS THIS AM - HEEL CARE GIVEN. PT TURNED REQUESTED - NO CO'S AT THE PRESENT TIME.
[2021-06-19 20:03] VITALS: BP 101/55
[2021-06-20 04:09] LABS: CALCIUM 8.3 mg/dL (8.5-10.1); CREATININE 0.9 mg/dL (0.7-1.3); MAGNESIUM 1.9 mg/dL (1.8-2.4); PHOSPHORUS 1.6 mg/dL (2.5-4.9); POTASSIUM 3.3 mmol/L (3.5-5.1)
[2021-06-20 04:44] VITALS: BP 104/56
--- NOTE | 2021-06-20 07:11 | NUR ---
ASSESSMENTS CHARTED, MEDS CHARTED GIVEN. PATIENT HAS TRIPLE IJ ON LEFT SIDE. ALL HUBS MARTÍN AND FLUSHED. PATIENT SINUS TACH DURING SHIFT. PATIENT WANTED ALL MEDS THROUGH PEG TUBE, DRINKS ORALY. ACHS WITH COVERAGE. RECEIVING PIVOT TUBE FEED WELL FOOD ORALLY IF HE IS HELPED TO EAT. Q2 TURN DURING NIGHT. FALL PRECAUTIONS DURING SHIFT.
[2021-06-20 07:30] VITALS: BP 106/67
--- NOTE | 2021-06-20 08:40 | NUR ---
PT OFF UNIT TO MRI.
[2021-06-20 11:25] VITALS: BP 104/53
--- NOTE | 2021-06-20 12:13 | NUR ---
[facility] indicates likely no bed til Wednesday. They will call the unit to make arrangements if a bed opens this weekend. [facility] form is on the chart for ambulance transport. [facility] updated on the dc plan. Will follow.
[2021-06-20 16:20] VITALS: BP 135/66
--- NOTE | 2021-06-20 18:00 | NUR ---
CONTINUE Q 2 HOUR TURNS AND DRESSING CHANGES. PT TOLERATED PO FOOD AND REMIANS ON TUBE FEEDS VIA PEG. WILL CONTINUE TO ASSESS.
[2021-06-20 20:19] VITALS: BP 113/75
--- NOTE | 2021-06-21 03:38 | NUR ---
ASSUMED PT CARE AT 1900, ALERT AND ORIENTED, C/O HEADACHE, TYL GIVEN WITH RELIEF, ST ON TELE, DENIES CHEST PAIN OR SOB, WOUND CARE COMPLETED, PAIN MEDS GIVEN POST WOUND CARE WITH RELIEF, INSULIN GIVEN PER SLIDING SCALE, TF INFUSING AT GOAL, NO NAUSEA AND VOMITING NOTED THIS SHIFT, WILL CONTINUE TO MONITOR AND FOLLOW POC
[2021-06-21 04:56] VITALS: BP 111/67
[2021-06-21 08:30] VITALS: BP 102/62
[2021-06-21 11:20] VITALS: BP 110/69
--- NOTE | 2021-06-21 17:52 | NUR ---
VITAL SIGNS STABLE. FMS REMOVED THERE WAS MINIMAL CLEAR MUCOUS OUTPUT. WOUND DRESSING CHANGED. UROSTOMY AND COLOSTOMY REMAIN INTACT WITH GOOD OUTPUT FROM EACH. TOLERATING PO.
[2021-06-21 19:43] VITALS: BP 94/57
--- NOTE | 2021-06-21 23:31 | NUR ---
PT RESTING IN BED WATCHING TV. IVF AND TFEEDING INTACT. UROSOTOMY TO DD BAG. COLOSTOMY INTACT. BILAT PRAFO INTACT. PT C/O HEADACHE PRN PROVIDED. PT OFFERED FLUIDS. BED ALARM ON. PT HAD LOW FSBS PROVIDED SNACK PER PROTOCOL, INCREASED TO 106. PROVIDER TEMPORARY HELP AGENCY REFERRAL CLERK NOTIFIED. ORDER TO HOLD STEFAN MALDONADO.
[2021-06-22 04:01] VITALS: BP 103/62
[2021-06-22 04:42] LABS: CALCIUM 8.7 mg/dL (8.5-10.1); POTASSIUM 3.4 mmol/L (3.5-5.1)
[2021-06-22 04:54] LABS: HEMOGLOBIN 7.3 gm/dL (14.0-18.0); MCH 25.8 pg (26.0-34.0); MCHC 31.8 g/dL (28.0-37.0); MCV 81.1 fL (80.0-100.0); RBC 2.84 mil/uL (4.50-6.00); WBC 8.4 thou/uL (4.0-11.0)
[2021-06-22 07:22] VITALS: BP 105/65
[2021-06-22 11:40] VITALS: BP 108/73
[2021-06-22 16:45] VITALS: BP 136/88
--- NOTE | 2021-06-22 18:02 | NUR ---
VITAL SIGNS STABLE. UROSTOMY BEGAN TO LEAK LATER THIS AFTERNOON, REINFORCED. GOOD OUTPUT FROM COLOSTOMY AND UROSTOMY. DENIES PAIN. HE DID HAVE TWO OCCURANCES OF MUCOUS LIQUID STOOL (MEDIUM AMT), INCONTINENT. FULL BED CHANGE. WOUND CARE PERFORMED TWICE DUE TO SATURATION FROM URINE AND MUCOUS STOOL.
[2021-06-22 20:50] VITALS: BP 136/78
[2021-06-23 05:02] VITALS: BP 138/69
[2021-06-23 08:00] VITALS: BP 110/68
[2021-06-23 11:00] VITALS: BP 105/63
--- NOTE | 2021-06-23 15:56 | NUR ---
NO BED AVAIL AT [facility] TODAY UPDATED PATIENT AND MOTHER.
[2021-06-23 16:40] VITALS: BP 104/64
[2021-06-23 20:30] VITALS: BP 99/60
--- NOTE | 2021-06-24 03:47 | NUR ---
PT IS ALERT AND OREINTED X4. ON ROOM AIR LUNGS ARE DIMINISHED. PT HAS A COLOSTOMY BAG AND UROSTOMY BAG . DRESSING CHANGES DONE TO COCCYX AREA WITH DAKINS WILL ORDER MORE DAKINS FOR DAY SHIFT. TURN Q 2 HOURS FOR NURSING CARE. HAS PIVIOT 1.5 INFUSING AT 30 TOELRATING WELL. DENIES ANY PAIN. CALL LIGHT WITHIN REACH IF NEEDS ASSISTANCE PER NURSING.
[2021-06-24 04:40] VITALS: BP 108/75
[2021-06-24 08:00] VITALS: BP 116/80
--- NOTE | 2021-06-24 08:21 | NUR ---
Pt tube feeding goal is 40ml/hr of Pivot 1.5. Please increase from 30ml/hr to 40ml/hr.
--- NOTE | 2021-06-24 09:20 | NUR ---
OSTOMY CARE; AWAKE, ALERT, COOPERATIVE, BOTH UROSTOMY AND COLOSTOMY POUCHES LEAKING, UROSTOMY LEAKING SPIGET WAS NOT OPEN TO DRAIN INTO DEP DRAINAGE SYSTEM AND BECAME TOO FULL, STOMA PINK VIABLE SLIGHTLY BUDDED W/ CLEAR YELLOW URINE PRESENT, PERISTOMAL SKIN INTACT, CONVEX PRECUT 1'JANET POUCH APPLIED, CONNECTED TO DEP DRAINAGE, COLOSTOMY STOMA RED VIABLE SLIGHTLY BUDDED, PERISTOMAL SKIN INTACT, SOFT BROWN STOOL NOTED, NEW POUCH APPLIED JANET 2 PIECE SYSTEM, SUPPLIES AT , INFORMED VICE PRESIDENT OF TALENT ACQUISITION AND MICROSOFT ACCESS DEVELOPER TO MAKE SURE SPIGET IS OPEN ON UROSTOMY IN ORDER TO DRAIN PROPERLY RECOMMENDATIONS; CHANGE POUCH Q 3-5 DAYS PRN, EMPTY PRN MICROSOFT ACCESS DEVELOPER AWARE
[2021-06-24 11:15] VITALS: BP 113/67
--- NOTE | 2021-06-24 13:38 | NUR ---
no bed avail at [facility] today updated RN, patient and mother.
[2021-06-24 15:00] VITALS: BP 108/51
[2021-06-24 19:27] VITALS: BP 105/67
[2021-06-25 04:51] VITALS: BP 117/66
[2021-06-25 07:35] VITALS: BP 103/55
[2021-06-25 07:38] VITALS: BP 105/55
[2021-06-25 11:32] VITALS: BP 114/67
--- NOTE | 2021-06-25 14:42 | NUR ---
No bed avail at [facility] today. Updated mom and patient. Updated [facility] as well. [facility] following.
[2021-06-25 15:17] VITALS: BP 117/61
--- NOTE | 2021-06-25 18:50 | NUR ---
PT IS AXOX4, PLEASANT. VSS, AFEBRILE, ST ON THE MONITOR. PT HAS PAIN R/T ULCERS IN SACRAL/GLUTEAL REGION. PT IS ON ABX THERAPY. PEG TUBE WITH PIVOT 1.5 AT 40ML/HR. GOAL RATE 40ML/HR. ABX THERAPY CONTINUED. PT HAS L IJ TC. PT HAS UROSTOMY ON RUQ, COLOSTOMY IN LUQ. DR RIOS CONSULTED, CASE MGMT CONSULTED. PT TO EVENTUALLY D/C TO [facility] WHEN PLACEMENT IS AVAILABLE. PT MOTHER CALLED AND INFORMED THAT 06/25/21 STILL NO BEDS AVAILABLE, AND WHERE IN PLACEMENT STATUS LINE HE IS. POC IS TO CONTINUE ABX THERAPY, PROVIDE WOUND CARE. FALL PRECAUTIONS IN PLACE. FREQUENT ROUNDING AND Q2 TURNS.
[2021-06-25 21:09] VITALS: BP 115/73
[2021-06-26 05:45] VITALS: BP 114/67
[2021-06-26 07:20] VITALS: BP 109/70
--- NOTE | 2021-06-26 10:07 | NUR ---
OSTOMY CARE; AWAKE, ALERT, COOPERATIVE, BOTH POUCHES W/ LOOSE EDGES, CHANGE UROSTOMY W/ JANET PRECUT CONVEX 1' POUCH AND CONNECTED TO DEP DRAINAGE, BOTH STOMAS PINK VIABLE, SLIGHTLY BUDDED COLOSTOMY, FLAT STOMA UROSTOMY, PERISTOMAL SKIN BOTH INTACT, NEW POUCH JANET CUT TO FIT APPLIANCE TO COLOSTOMY, SOFT/LOOSE BROWN STOOL NOTED, ADAPT RING APPLIED UNDER WAFER, SUPPLIES AT BS RECOMMENDATIONS; CHANGE Q 2-4 DAYS AND LINING MAKER EMPTY PRN [employer] SOUNDINGS GROUP LEADER AWARE
[2021-06-26 12:53] LABS: HEMATOCRIT 21.8 % (42.0-52.0); HEMOGLOBIN 6.6 gm/dL (14.0-18.0); MCH 24.6 pg (26.0-34.0); MCHC 30.4 g/dL (28.0-37.0); MCV 81.2 fL (80.0-100.0); RBC 2.69 mil/uL (4.50-6.00); RDW 17.8 % (10.5-14.5); WBC 9.6 thou/uL (4.0-11.0)
[2021-06-26 13:18] VITALS: BP 105/61
[2021-06-26 13:21] LABS: CALCIUM 8.5 mg/dL (8.5-10.1); CREATININE 0.9 mg/dL (0.7-1.3); MAGNESIUM 2.1 mg/dL (1.8-2.4); POTASSIUM 4.4 mmol/L (3.5-5.1)
--- NOTE | 2021-06-26 15:32 | NUR ---
Spoke with [facility] this am. No bed available today. They are hoping to have some discharges tomorrow and will let us know if they can admit tomorrow or the weekend. Tele discontinued. Pt likely moving to the 4th floor.
[2021-06-26 15:50] VITALS: BP 104/67
--- NOTE | 2021-06-26 16:49 | NUR ---
ASSUMED CARE AT SHIFT CHANGE. PT A/O X 4. PLESANT AND CALM. AWAITING BED AT [facility]. WOUNDS WITH PINK, HEALING TISSUE. PT GIVEN PAIN MEDS PRN X 1 DOSE WHICH CONTROLLED PAIN WELL. PT HAD GOOD URINE OUTPUT THIS SHIFT. ALSO ATE MEALS WELL TF INFUSING. BG HIGH FOR LUNCH BUT ORDER FOR LANTUS RECEIVED AND GIVEN PER MAR. PT DENIES ANY FURTHER NEEDS TODAY. Q2 TURNS, SANTO PUMP ON BED. REPORT GIVEN TO RODERICK JACOBO FOR PT TO TRANSFER TO ROOM 464 THIS EVENING. WILL CONT TO MONITOR AND FOLLOW POC.
[2021-06-26 19:03] VITALS: BP 108/72
--- NOTE | 2021-06-26 19:35 | NUR ---
PATIENT TRANSFERRED FROM AT APPROX 1800. DENIED PAIN. MOTHER WAS AT BEDSIDE AND FED PATIENT. NO INSULIN GIVEN; NOT INDICATED. VOICED NO FURTHER NEEDS. TOTAL CARE PATIENT, ENDORSED TO CHARGE NURSE
--- NOTE | 2021-06-27 07:38 | NUR ---
Assumed pt's care pm shift. ALert and oriented. Meds given per emar. Dressing changed this am per pt's request. Q2 turn. Pivot 1.5 @4oml/hr goal. Fall precaution in place. Pt slept well this shift. PRN pain med as needed.
[2021-06-27 08:12] VITALS: BP 92/62
--- NOTE | 2021-06-27 15:56 | NUR ---
Spoke with [facility] this am. No bed available today. Cm awaiting determination as to if they have some discharges over the weekend. Contact liaison at the [facility] above to check in the am.
[2021-06-27 16:49] VITALS: BP 90/57
--- NOTE | 2021-06-27 18:20 | NUR ---
ASSUMED CARE OF PT AT 0700 THIS MORNING. PT HAS 3 MAJOR DECUB ULCERS ON BUTTOCKS AND SACRAL AREAS. ALL WOUNDS ARE DRESSED C/D/I AND WERE CHANGED THIS MORNING. CASHIER GAMBLING TO CHANGE TONIGHT. ASSESSMENTS NOTED IN CHART AND OTHERWISE UNREMARKABLE. IJ IN LT NECK. CALL LIGHT AND OTHER NEEDS ARE IN REACH. FALL PRECAUTIONS IN PLACE. MEDS AND TX GIVEN NEEDED AND SCHEDULED. WILL CONTINUE MONITORING AND NOTE ANY CHANGES. AT 1732 TOGGLE PRESS OPERATOR NOTICED PT SWEATING AND LOOKING CONFUSED. TOOK GLUCOSE AND IT WAS CL. ADMIN AMP D50% AND PUT ASIDE 250NL OF D10% JUST FOR PRECAUTIONARY. PT DID EAT 50% OF HIS DINNER AND WAS BROUGHT TO MY ATTENTION THAT PT DID NOT EAT LUNCH. PT IS ON 40ML ON CONTINUOUS TUBE FEEDING. CALLED DR. RIOS TO REPORT THE EVENT AND HE STATED HE WILL CHANGE UP THE MEDS TO REDUCE THE FLUCTUATIONS.
[2021-06-27 20:21] VITALS: BP 105/72
--- NOTE | 2021-06-28 03:16 | NUR ---
PT CARE ASSUMED WITH PT IN BED AT 1900.PT IS A/O X4.PT IS ON BEDREST AND PARAPLEGIC AND ABLE TO CALL OUT AND MAKE NEEDS KNOWN TO STAFF.PT HAS A UROSTOMY AND A COLOSTOMY IN PLACE.PT IS ACCUCHECK Q6H WITH LANTUS AT HS.PT IV ACCESS ON LT IJ TRIPPLE LUMEN SL.PT HAS A PEG TUBE IN PLACE WITH PIVOT 1.5 40ML/HR.PT HAS A DECUB SACRAL ULCER WITH DRESSING BID.PAIN MANAGED WITH NORCO.PT IS ON ROOM AIR.WILL CONTINUE TO MONITOR PER [POC
[2021-06-28 08:00] VITALS: BP 115/74
--- NOTE | 2021-06-28 16:03 | NUR ---
RETURMED TO CARE OF PT AT 0700 THIS MORNING. WAS TOLD BY OFF GOING NURSE THAT HIS BLOOD SUGAR WAS 235 BUT WAS NOT TOLD THAT SHE GAVE HIM INSULIN USING THE MODERATE SLIDING. AT 0830 THIS MORNING PT WENT CL <20MG/DLL AND WAS NOT FEELING WELL. STARTED D10% AT 1000NL/HR TO INCREASE BLOOD SUGAR AND 2BOXES OF APPLE JUICE. PT'S BLOOD SUGAR IMPROVED OVER THE NEXT [address] RIOS TO SEE IF HE WOULD LIKE TO MOVE TO LOW DOSE SLIDING SCALE. I HAVE NOT HEARD BACK FROM HIM YET. I ALSO NOTICED THE FEEDING PUMP HAS NOT BEEN FUNCTIONING PROPERLY AND CHANGED TO THE NEW PUMP. PT HAS BEEN MORE ALERT AND HOLDING BLOOD SUGAR BETTER. ASSESSMENT CHARTED AND OTHERWISE UNREMARKABLE CALL LIGHT AND OTHER NEEDS ARE WITHIN REACH. FALL PRECAUTIONS ARE IN PLACE. MEDS AND TX GIVEN NEEDED AND SCHEDULED. ASSISTED DR. ALANIS IN CHANGING DRESSINGS THIS MORNING. WILL MONITOR AND NOTE ANY CHANGES THIS SHIFT.
[2021-06-28 20:40] VITALS: BP 108/71
--- NOTE | 2021-06-29 07:06 | NUR ---
Assumed pt care at 1900. A/OX4,VSS,tachy on and off. C/o sacral pain upon wound care medicated per EMAR with relief reported as well as repositioned. Urostomy/colostomy patent with adequate output. Left IJ in place,patent and saline locked for now. Pt questioning insulin orders/tube feeding at midnight;informed order is to not mess with it is to be able to determine what changes needs to be made; reassuarance provided to pt that we'll keep monitoring him,verbalized understanding. BS stable at this time. Fall precautions in place.
[2021-06-29 07:52] LABS: POTASSIUM 3.8 mmol/L (3.5-5.1)
[2021-06-29 08:38] VITALS: BP 114/73
[2021-06-29 09:23] LABS: HEMATOCRIT 23.4 % (42.0-52.0); HEMOGLOBIN 7.1 gm/dL (14.0-18.0); MCH 25.6 pg (26.0-34.0); MCHC 30.4 g/dL (28.0-37.0); MCV 84.1 fL (80.0-100.0); RBC 2.78 mil/uL (4.50-6.00); RDW 18.4 % (10.5-14.5); WBC 6.8 thou/uL (4.0-11.0)
--- NOTE | 2021-06-29 15:49 | NUR ---
ASSUMED CARE OF PATIENT AT SHIFT CHANGE. ASSESSMENT CHARTED. MEDICATIONS ADMINISTERED PER EMAR VIA TUBE. VSS. FSBS ELEVATED UPON SHIFT CHANGE. PATIENT IS A&OX4 AND MAKES NEEDS KNOWN. SACRAL WOUNDS CHANGED THIS DAY BY WOUND CARE PHYSICIAN AND NURSE. HEELS REMAIN ELEVATED IN PRAFO BOOTS AND FREQUENT REPOSITIONING COMPLETED Q2HRS OR MORE PER PATIENT REQUEST. AT APPROX 1450 PATIENT CALLED OUT SAYING HE WAS SWEATING; FSBS FOUND TO BE <20; AT APPROX 1515 AFTER FOOD INTAKE & JUICE INTAKE PATIENT BACK TO 84. TUBE FEED ON AT ALL TIMES. PROVIDER NOTIFIED AND AWARE; ORDERS FOLLOWED & PATIENT MONITORED MORE FREQUENTLY. PARTIAL BEDBATH GIVEN THIS DAY; PAIN CONTROLLED W PRN PAIN MEDS. DINNER CALLED INTO FOOD SERVICES FOR PATIENT APPETITE IMPROVENT. CONTINUING FREQUENT MONITORING
[2021-06-29 20:13] VITALS: BP 116/69
--- NOTE | 2021-06-30 02:19 | NUR ---
Assumed pt care at 1900. A/OX4,VSS,blood sugar 354 pt refused sliding scale insulin at HS but took Lantus. Tube feeding infusing w/o any problems,10cc residual noted. Left IJ triple lumed in place and patent. Urostomy/colostomy in place,patent with adequate output. Wound care done at this time w/o any problems voiced. Medicated for pain per EMAR with relief reported. Repositioned 2hrs as tolorated,on a SANTO/Heel protectors in place. Fall precautions in place,will continue to monitor pt.
[2021-06-30 06:10] VITALS: BP 118/76
[2021-06-30 08:19] VITALS: BP 107/62
--- NOTE | 2021-06-30 10:21 | NUR ---
OSTOMY CARE; ALERT, COOPERATIVE, POUCH EDGES LOOSE ON COLOSTOMY, CHANGED USING JANET 2 PIECE SYSTEM W/ ADAPT RING UNDER WAFER, STOMA PINK VIABLE SLIGHTLY BUDDED W/ LOOSE BROWN STOOL NOTED, PERISTOMAL SKIN INTACT, NEW POUCH TO UROSTOMY HOLLSITER 1 ' CONVEX AND CONNECTED TO DEP DRAINAGE SYSTEM, PERISTOMAL SKIN INTACT, CLEAR YELLOW URINE PRESENT, SUPPLIES AT BS RECOMMENDATIONS; CHANGE APPLIANCES Q 3-5 DAYS AND PRN, EMPTY PRN WOODS MANAGER AWARE
[2021-06-30 14:11] LABS: ABSOLUTE RETIC COUNT 0.0491 10^6/uL; OBSERVED RETIC COUNT 2.02 % (0.6-2.6)
[2021-06-30 14:21] LABS: % SATURATION 17 % (20-39); IRON 26 ug/dL (65-175); TIBC 151 ug/dL (250-450)
[2021-06-30 15:26] LABS: FOLIC ACID 24.3 ng/mL (8.6-58.9)
--- NOTE | 2021-06-30 16:01 | NUR ---
CM CHECKED IN WITH DANIE IN ADMISSIONS AT [facility] AND THEY INDICATED PT IS 5TH IN LINE FOR ADMISSION. CM FAXED OVER CLINICAL UPDATES THIS AFTERNOON. CM FOLLOWING REGARDING DC PLANNING.
[2021-06-30 18:00] VITALS: BP 114/69
[2021-06-30 20:32] VITALS: BP 126/71
[2021-06-30 21:05] LABS: IgA 500 mg/dL (90-386); IgG 2793 mg/dL (603-1613); IgM 59 mg/dL (20-172); TESTOSTERONE* 122 ng/dL (264-916)
--- NOTE | 2021-07-01 01:19 | NUR ---
ASSUMED PT CARE 190. PT IS ALERT AND ORIENTED X4. OT HAS A UROSTOMY AND COLOSTOMY BAGS WHICH ARE IN PLACE. WOUND DRGS WAS DONE PER ODERS. PT'S ACHS WAS 364 AT 2126 BUT PT REFUSED LISPRO INSULIN. PT HAS FEEDING RUNNING AT 40ML/HR. PT IS COMPLIANT WITH Q2HR TURN.PT IS CONTACT PRECAUTION FOR HX OF C-DIFF. VS ARE WITHIN NORMAL RANGE AND MEDS ARE GIVEN PER EMAR ORDERS. PT C/O OF PAIN WHICH IS MANAGED BY PRN MEDS. PT DID NOT EXPRESS ANY OTHER CONCERNS AND NO VISIBLE SIGN OF DISTRESS WAS NOTED. FALL PRECAUTIONS IN PLACE WITH CALL LIGHT WITHIN REACH. WILL CONTINUE TO MONITOR.
[2021-07-01 08:13] VITALS: BP 105/67
[2021-07-01 10:07] LABS: KAPPA FREE LIGHT CHAINS 150.1 mg/L (3.3-19.4); KAPPA/LAMBDA RATIO 2.33 (0.26-1.65); LAMBDA FREE LIGHT CHAINS 64.5 mg/L (5.7-26.3)
--- NOTE | 2021-07-01 14:02 | NUR ---
WOUND CARE F/U; WOUNDS OVERALL ARE STABLE EXCEPT FOR SOME SLOUGH IN THE RIGHT BUTTOCKS AREA. NO ODOR, A PINKISH/RED WOUND BED WITH PERIWOUND MASCERATION. I USED BARRIER SWABS TO PROTECT THE PERIWOUND MARGINS. RECCOMENDATIONS: -TURN Q2 HOURS AT A MINIMUM. -CONTIUNE CURRENT WOUND CARE ORDERS WITH JOSHUA/WILFREDO. DISCUSSSED WITH RN.
--- NOTE | 2021-07-01 14:27 | NUR ---
ESTUARDO CHECKED WITH DANIE IN ADMISSIONS AT [facility] THIS AM AND SHE INDICATED THEY WERE ASSESSING BEDS AND SHE'D LET CM KNOW. CM REACHED BACK OUT AT LUNCH TIME AND SHE INDICATED THAT IT DIDN'T LOOK LIKE THEY WOULD HAVE A BED FOR HIM TODAY. CM FOLLOWING REGARDING EENTUAL DC TO [facility].
[2021-07-01 15:20] VITALS: BP 112/65
[2021-07-01 19:07] LABS: ANA INTERPRETATION Negative (())
--- NOTE | 2021-07-01 19:38 | NUR ---
Assumed pt care at 7am.Pt in bed sleeping on and off.Assessment completed.vss. Repositioned q2h for comfort.Complete bath and bed change done by mailing machine assistant early this shift.Pt tolerated meds and tube feeding.Drsg change done to coccyx by wound care nurse this shift.Dr Arriola here,stated that pt will be dc to [facility] whenever bed available.Oral pain med given once this shift with relief.Will continue to monitor.
[2021-07-01 19:46] VITALS: BP 148/82
--- NOTE | 2021-07-02 01:59 | NUR ---
[facility] PT CARE AT 1935. PT IS ALERT AND ORIENTED X4. DRSG COMPLETED. PT IS COMPLIANT WITH Q2HR TURNS. PT HAS PEG WITH FEEDING RUNNING AT 40ML/HR. PT PREFERS TO TAKE ONLY PO PAIN MEDS BY MOUTH AND OTHER PO MEDS THROUGH THE PEG TUBE. PT HAS UROSTOMY, COLOSTOMY AND HEEL BOOTS PROTECTOR IN PLACE. PT TOLERATING RA. VS ARE WITHIN NORMAL RANGE. PT DID NOT VERBALIZE ANY CONCERNS AND NO VISIVLE SIGH OF DISTRESS WAS NOTED. FALL PRECAUTIONS IN PLACE WITH CALL LIGHT WITHIN REACH . WILL CONTINUE TO MONITOR.
[2021-07-02 06:38] VITALS: BP 151/75
[2021-07-02 08:30] VITALS: BP 121/74
[2021-07-02 10:08] LABS: HEPATITIS C VIRUS AB 0.6 (0.0-0.9)
[2021-07-02 15:08] LABS: GLOBULIN TOTAL 5.2 g/dL (2.2-3.9); M-SPIKE Not Observed g/dL (Not Observed)
[2021-07-02 15:45] VITALS: BP 105/60
[2021-07-02 19:58] VITALS: BP 105/72
--- NOTE | 2021-07-03 01:36 | NUR ---
ASSUMED PT CARE AT 1920. PT IS ALERT AND ORIENTED X4. PT HAS UROSTOMY,COLOSTOMY AND HEEL PROTECTOR IN PLACE. DRSG CHANGE DONE.PT IS COMPLIANT WITH Q2HR TURNS. PT ONLY TAKE PO PAIN MEDS BY MOUTH AND PREFERS OTHER PO MEDS VIA PEG TUBE. PT TOLEARTING RA. NEW FEEDING BAG HANGED WHICH IS RUNNING AT 4OML/HR. FALL PRECAUTIONS IN PLACE WITH CALL LIGHT WITHIN REACH. WILL CONTINUE TO MONITOR.
[2021-07-03 08:50] VITALS: BP 122/84
[2021-07-03 14:45] VITALS: BP 123/66
--- NOTE | 2021-07-03 15:49 | NUR ---
NO BED AT [facility] THIS DAY. CM TO CONTINUE TO CALL AND CHECK EACH DAY AND FAX CLINICAL IN EFFORT TO GET PT TO [facility] LEVEL OF CARE.
--- NOTE | 2021-07-03 19:57 | NUR ---
ASSUMED PT CARE THIS AM. PT IS ALERT & ORIENTED X4. PT HAS IV SITE ON L IJ PICC LINE TRIPLE LUMEN. PT HAS NG TUBE RUNNING @ 40ML/HR AND FLUSH WITH 50ML. PT HAS HEEL PROTECTOR BOOTS. DID WOUND DRESSING THIS AFTERNOON WITH NS, DAKINS, ABD AND TAPE. PT IS ACCUCHECK ACHS AND FEEDER. PT C/O OF PAIN AND GIVEN PAIN MEDICATION PER PT REQUEST. GIVEN ALL MEDICATIONS VIA NG TUBE PER PT REQUEST EXCEPT PAIN MEDICATION. PT TOLERATED MEDICATION. NO C/O OF NAUSEA AND VOMITING DURING THE SHIFT. PT HAS UROSTOMY AND COLOSTOMY. PT IS TURN Q2H. PT IS ON ISOLATION PRECAUTION. PT ON THE BED, BED ON THE LOWEST POSITION, SIDE RAILS UP, CALL LIGHT WITHIN REACH. WILL CONTINUE TO MONITOR PT. FOLLOW POC.
[2021-07-03 20:45] VITALS: BP 105/72
--- NOTE | 2021-07-04 07:44 | NUR ---
OSTOMY CARE; AWAKE, ALERT, COOPERATIVE, SPIGET ON UROSTOMY POUCH NOT OPEN IN ORDER TO DRAIN INTO DEP SONI BAG, BAD FULL ALMOST READY TO EXPLODE, SHOWN DIRECTOR LIFE SALES AND RN TO MAKE SURE POUCH SPIGET IS OPEN (TEAR DROP UP) IN ORDER TO DRAIN PROPERLY, NEW POUCH APPLIED POINTING DOWN IN ORDER TO DRAIN BETTER, POUCH WAS ON SIDEWAYS, CONVEX 1' JANET APPLIED AND CONNECTED TO DEP DRAINAGE SYSTEM, NEW POUCH TO COLOSTOMY, BOTH STOMAS REMAIN PINK VIABLE, PERISTOMAL SKIN BOTH STOMAS INTACT, JANET CUT TO FIT POUCH APPLIED TO COLOSTOMY STOMA W/ ADAPT RING UNDER WAFER, SUPPLIES AT BS RECOMMENDATIONS; CHANGE POUCHES Q 3-5 DAYS AND PRN, EMPTY PRN LOCAL AREA NETWORK ADMINISTRATOR AWARE
[2021-07-04 08:01] VITALS: BP 123/71
--- NOTE | 2021-07-04 12:03 | NUR ---
FAXED CLINICAL UPDATES WITH WOUND CARE, RD AND OSTOMY NOTES TO TIANNA/LIAISON AT [facility]. WILL CONFIRM THEY RECEIVED. [facility] [phone]; FAX [phone]; M [phone] TIANNA
[2021-07-04 12:27] LABS: HEMATOCRIT 23.7 % (42.0-52.0)
[2021-07-04 12:28] LABS: HEMOGLOBIN 7.4 gm/dL (14.0-18.0); MCH 26.1 pg (26.0-34.0); MCHC 31.1 g/dL (28.0-37.0); RBC 2.82 mil/uL (4.50-6.00); RDW 19.7 % (10.5-14.5); WBC 9.8 thou/uL (4.0-11.0)
[2021-07-04 12:43] LABS: ALBUMIN 1.8 g/dL (3.4-5.0); CALCIUM 9.2 mg/dL (8.5-10.1); CREATININE 0.9 mg/dL (0.7-1.3); POTASSIUM 4.3 mmol/L (3.5-5.1); TOTAL BILIRUBIN 0.2 mg/dL (0.2-1.0)
[2021-07-04 13:08] LABS: FREE TESTOSTERONE 1.1 pg/mL (8.7-25.1)
[2021-07-04 13:09] LABS: ABSOLUTE NEUTROPHILS 9.1 thou/uL (1.4-8.2)
[2021-07-04 13:12] LABS: ANISOCYTOSIS 1+; PLATELET COUNT 918 thou/uL (150-400)
--- NOTE | 2021-07-04 14:16 | NUR ---
JESSICA INDICATED THAT THEIR CENSUS HAD BEEN CAPPED AT 33 AND THAT THEY ARE NOW ONLY FOCUSING ON VENT PATIENTS WHO CAN'T GO ANYWHERE ELSE. THEY INDICATED THEY DON'T KNOW WHEN THEY WOULD BE ABLE TO ACCEPT PT AND IT WON'T BE ANY TIME SOON. CM NOTIFIED CARE TEAM AND THEY INDICATE THAT IT WOULD BE APPROPRIATE TO REACH OUT TO [facility] PT'S LTC FACILITY HAD IS WILLING TO TAKE PT BACK ON HIS TWO IV ABX. CM REACED OUT TO [facility] IN ADMISSIONS AND SHE INDICATED THAT THEY ARE ABLE TO ACCEPT PT BACK BUT WOULD PREFER TO TAKE HIM WEDNESDAY. CLINICAL UPDATES FAXED. CM TO NOTIFY PT AND MOTHER. CM FOLLOWING REGARDING ANTICPATED DC BACK TO [facility] WEDNESDAY.
[2021-07-04 17:37] VITALS: BP 121/80
--- NOTE | 2021-07-04 18:11 | NUR ---
A/O X 4. rOOM AIR. Bed bound. BS 205 at dinner. Dietian Sury told nurse that his peg feed pivet is on back order and will be swithced to Glucerna 1.2 @ 55 mls/hr once the last bottle of pivet is used. Critical platlet 918. Given norco for wound pain.
[2021-07-04 21:02] VITALS: BP 117/72
--- NOTE | 2021-07-05 08:00 | NUR ---
patient turned q 2 hours. pain controlled this shift. fall precaution in place. patient in bed asleep at this time breathing regular and unlaboured.
[2021-07-05 09:25] VITALS: BP 123/79
[2021-07-05 11:30] LABS: MAGNESIUM 2.1 mg/dL (1.8-2.4); PHOSPHORUS 3.4 mg/dL (2.6-4.7)
[2021-07-05 15:33] LABS: HEMOGLOBIN 7.7 gm/dL (14.0-18.0); MCHC 30.5 g/dL (28.0-37.0)
[2021-07-05 15:35] LABS: ABSOLUTE NEUTROPHILS 11.3 thou/uL (1.4-8.2); BASOPHILS 0.4 % (0.0-2.0); EOSINOPHILS 0.3 % (0.0-3.0); HEMATOCRIT 25.1 % (42.0-52.0); LYMPHOCYTES 5.2 % (24.0-44.0); MCH 25.6 pg (26.0-34.0); MCV 83.9 fL (80.0-100.0); MONOCYTES 2.1 % (1.0-8.0); RBC 2.99 mil/uL (4.50-6.00); RDW 20.9 % (10.5-14.5); WBC 12.2 thou/uL (4.0-11.0)
[2021-07-05 15:43] LABS: PLATELET COUNT 936 thou/uL (150-400)
[2021-07-05 15:53] LABS: ALBUMIN 1.8 g/dL (3.4-5.0); CALCIUM 9.1 mg/dL (8.5-10.1); CREATININE 0.9 mg/dL (0.7-1.3); MAGNESIUM 2.1 mg/dL (1.8-2.4); POTASSIUM 4.2 mmol/L (3.5-5.1); TOTAL BILIRUBIN 0.2 mg/dL (0.2-1.0); TOTAL PROTEIN 8.4 g/dL (6.4-8.2)
[2021-07-05 17:00] LABS: ANISOCYTOSIS 2+; PLATELET ESTIMATE MARKEDLY INCREASED; TARGET CELLS 1+
[2021-07-05 17:35] VITALS: BP 115/73
--- NOTE | 2021-07-05 18:30 | NUR ---
PT ASSESSED AT START OF SHIFT. SPEECH IS DIFFICULT TO UNDERSTAND PT DOES NOT ENUNCIATE WORDS. PAIN CONTROLLED WELL W/ MEDS. BLOOD SUGAR VERY HIGH THIS AM BUT WAS MONITORED CLOSELY AND CAME DOWN. DR. DUMONT NOTIFIED AND SEVERAL CHANGES IN MEDS. PT REPOSITIONED Q2HRS. TUBE FEEDING RESIDUALS 3-4MLS. TUBE FEED STOPPED FOR A WHILE FOR HIGH GLUCOSE AND NOW RUNNING AT 40MLS/HR. MOTHER AT BEDSIDE NOW.
[2021-07-05 20:27] VITALS: BP 111/73
--- NOTE | 2021-07-06 03:04 | NUR ---
PT CARE ASSUMED WITH PT IN BED WITH MUM AT BEDSIDE.PT IS A/O X4.PT IS BEDREST AND PARAPLEGIC.PAIN MANAGED WITH NORCO.PT HAS A COLOSTOMY ,UROSTOMY AND A PEG TUBE IN PLACE.WOUND DRESSING WET TO DRY DONE A ORDERED.PT IS ACCUCHECK Q6H AND HS.PT ON TELE SR/ST.WILL CONTINUE TO MONITOR
[2021-07-06 06:32] LABS: HEMATOCRIT 22.7 % (42.0-52.0); RBC 2.69 mil/uL (4.50-6.00); WBC 8.9 thou/uL (4.0-11.0)
[2021-07-06 06:34] LABS: HEMOGLOBIN 7.1 gm/dL (14.0-18.0); MCH 26.4 pg (26.0-34.0); MCHC 31.2 g/dL (28.0-37.0); MCV 84.6 fL (80.0-100.0); RDW 21.6 % (10.5-14.5)
[2021-07-06 06:36] LABS: PLATELET COUNT 816 thou/uL (150-400)
[2021-07-06 07:07] LABS: CALCIUM 8.6 mg/dL (8.5-10.1); CREATININE 0.8 mg/dL (0.7-1.3); MAGNESIUM 1.8 mg/dL (1.8-2.4); POTASSIUM 3.8 mmol/L (3.5-5.1)
[2021-07-06 07:36] LABS: ABSOLUTE NEUTROPHILS 7.3 thou/uL (1.4-8.2); ANISOCYTOSIS 2+; HYPOCHROMASIA 2+; PLATELET ESTIMATE INCREASED; POLYCHROMASIA SLIGHT
[2021-07-06 07:55] VITALS: BP 106/63
[2021-07-06 14:28] VITALS: BP 117/68
--- NOTE | 2021-07-06 20:47 | NUR ---
GAVE PT ONE UNIT OF pACKED RED BLOOD CELLS PER ORDER. PT VERY LETHARGIC. bED IN LOW POSITION. cALL LIGHT WITHIN REACH.
[2021-07-06 21:32] VITALS: BP 116/73
--- NOTE | 2021-07-07 03:32 | NUR ---
PT CARE ASSUMED WITH PT RESTING IN BED AT SHIFT CHANGE.PT IS A/O X4.PT HAS A COLOSTOMY AND A UROSTOMY.PT IS ACCUCHECK Q6H AND HS.PT HAS A PEG TUBE WITH GLUCERNA 1.2 MIX WITH 1 PACKET WOODY AT 50CC/HR WITH A GOAL RATE OF 55 AND BID FLUSH OF 240ML.PT IS Q2 REPOSITION AND CALLS APPROPRIETELY FOR HELP.PT HAS NORCO FOR PAIN MGT PRN.IV ACCESS LT IJ TRIPPLE LUMEN SL.WOUND DRESSING WET TO DRY DONE DURING SHIFT.SLIDING SCALE INSULIN GIVEN ORDERED.WILL CONTINUE TO MONITOR
--- NOTE | 2021-07-07 07:27 | EKG ---
[address] [place] [address] ELECTROCARDIOGRAM REPORT Name: LÓPEZ BOLAND Room #: 464-P ADM IN M.R.#: [id number] Admission: 06/04/21 Attend Phys: Sammy Arriola MD Discharge: Date of : 85 Report #: [id number] [facility] Test Date: 2021-07-05 Test Time: 10:41:49 Pat Name: LÓPEZ BOLAND Department: Room: 464 P Gender: M Storm Chaser: : 1985 Requested By: Belinda Dong Order Number: [id number] MD: Pako Hawley Measurements Intervals [place] Rate: 139 P: 69 ND: 126 QRS: 87 QRSD: 65 T: 32 QT: 300 QTc: 456 Interpretive Statements Sinus tachycardia Ventricular premature complex Aberrant complex Consider right atrial enlargement Abnormal R-wave progression, late transition Consider left ventricular hypertrophy Compared to ECG 06/13/2021 01:14:04 Ventricular premature complex(es) now present Aberrant conduction of supraventricular beat(s) now present ST (T wave) deviation now present Electronically Signed On 07-07-2021 7:27:14 CDT by Pako Hawley [email or web address] <ELECTRONICALLY SIGNED> By: Pako Hawley MD, FACC 07/07/21 0727 1041 1041 Pako Hawley MD, FAC /EPI
[2021-07-07 08:10] VITALS: BP 110/71
--- NOTE | 2021-07-07 08:13 | NUR ---
OSTOMY CARE; AWAKE, ALERT, COOPERATIVE, POUCH EDGES LOOSE, CHANGED UROSTOMY POUCH W/ JANET CONVEX 1 11/22' & CONNECTED TO DEP DRAINAGE, URINE YELLOW CLEAR, PERISTOMAL SKIN INTACT, STOMA PINK VIABLE FLAT W/ SKIN SURFACE, COLOSTOMY POUCH CHANGED USING 2 PIECE JANET CUT TO FIT APPLIANCE, W/ ADAPT RING UNDER WAFER, STOMA PINK VIABLE SLIGHTLY BUDDED, PERISTOMAL SKIN INTACT, LOOSE BROWN STOOL NOTED, SUPPLIES AT BS RECOMMENDATIONS; CHANGE POUCHES Q 2-4 DAYS AND PRN, EMTPY PRN RAILROAD FIRER/FIREMAN AWARE
--- NOTE | 2021-07-07 12:10 | NUR ---
CM REACHED OUT TO [facility] THIS AM AND THEY INDICATED THAT THEY ARE ANTICIPATING DC POSSIBLE OPEN BEDS THIS WEEK. CM FAXED CLINICAL INFO OVER FOR REVIEW FOR POSSIBLE ADMISSION. CM HAD ALSO UPDATED [facility]. CM AWAITING DETRMINATION OF LT[facility] VS. DC BACK [facility] AT THIS TIME.
[2021-07-07 16:30] VITALS: BP 116/73
--- NOTE | 2021-07-07 16:39 | NUR ---
THIS RN AGREES WITH THE CITY LETTER CARRIER ASSESSMENT.
[2021-07-07 21:11] VITALS: BP 110/78
--- NOTE | 2021-07-08 03:31 | NUR ---
ASSUMED CARE OF PT AT SHIFT CHANGE. PT IS AOX4 AND LETS NEEDS BE KNOWN. FALL PRECAUTION IN PLACE. PT TURNED Q2H. UROSTOMY AND COLOSTOMY IN PLACE. ISOLATION FOR CDIFF CONTINUED. WOUND CARE COMPLETED PER ORDER. PT REPORTED SOME PAIN AND PRNS WERE PROVIDED. PT DENIED NAUSEA OR SOA. PT WAS ABLE TO GET COMFORTABLE AND SLEEP PART OF THE SHIFT. TF CONTINUED AT GOAL RATE. VSS AND NO S/S OF ACUTE DISTRESS. WILL CONTINUE TO MONITOR.
[2021-07-08 10:33] LABS: HEMATOCRIT 31.5 % (42.0-52.0); MCH 26.7 pg (26.0-34.0); MCHC 31.9 g/dL (28.0-37.0); MCV 83.9 fL (80.0-100.0); RBC 3.76 mil/uL (4.50-6.00); RDW 20.1 % (10.5-14.5)
[2021-07-08 10:41] LABS: CALCIUM 9.2 mg/dL (8.5-10.1); CREATININE 0.9 mg/dL (0.7-1.3)
[2021-07-08 10:42] LABS: MAGNESIUM 1.9 mg/dL (1.8-2.4)
[2021-07-08] MEDS ORDERED: PREDNISONE 20 M20 M1 PER TUBE (14:43)
[2021-07-08] MEDS ORDERED: VANCOMYCIN500 MG/101 IV (14:43)
[2021-07-08] MEDS ORDERED: PEPCID20 MG PO (14:43)
[2021-07-08] MEDS ORDERED: VANCOMYCIN HCL250 M1 PER TUBE (14:43)
[2021-07-08] MEDS ORDERED: HUMALOG100 UNIT/1 SUBQ (14:43)
[2021-07-08] MEDS ORDERED: FLORANEX GRANU1 EACH PO (14:43)
[2021-07-08] MEDS ORDERED: ACETAMINOPHEN325 M1 PO (14:43)
[2021-07-08] MEDS ORDERED: LANTUS SUBQ (14:43)
[2021-07-08] MEDS ORDERED: ZOSYN 3.373.375 GM/1 IV (14:43)
--- NOTE | 2021-07-08 15:04 | NUR ---
[facility] DOESN[facility]T HAVE A BED TO ACCEPT PT THIS DAY. CM NOTIFIED PHYSICIAN, PT, AND PT'S MOTHER. PT IS TO DC BACK TO [facility] TODAY. CM ARRANGED STRETCHER TRANSPORT THROUGH [facility] BETWEEN [phone]. CHART COPY MADE. ORDERS FAXED. NURSE GIVEN NUMBER FOR REPORT. NO OTHER CM INTERVENTION INDICATED. CASE CLOSED.
--- NOTE | 2021-07-08 15:24 | NUR ---
ASSUMED CARE OF PATIENT ON 07/07 & 07/08. ASSESSMENTS CHARTED. MEDICATIONS ADMINISTERED PER EMAR. VSS. PATIENT IS A&OX4 AND ABLE TO MAKES NEEDS KNOWN. WOUND CARE COMPLETE X2. SHRUTHI OSTOMY NURSE CHANGED OSTOMY 07/07 AM AND ROLANDO, REPAIRER PUMP COMPLETED WOUND CARE & TOOK PHOTO BEFORE DISCHARGE. PATIENT TO BE DISCHARGED BACK TO [facility]. IJ WILL STAY IN PLACE WELL SP CATH, OSTOMY & PRAFO BOOTS. REPORT WAS ATTEMPTED TO BE GIVEN TO NURSE AT [facility] BUT SHE REFUSED AT THE MOMENT BECAUSE SHE "DID NOT KNOW WHAT BED HE IS GOING TO" WILL ATTEMPT LATER
== END 2021-07-08 18:57 | DRG 871 ==
LOC: ER 11:15 → EROBS 15:14 → 2N 20:54 → 4W 06-04 10:43 → 2N 06-04 10:43 → 4W 06-26 17:38
PROVIDERS: Anesthesiology; Hospitalist; Internal Medicine; Nurse Practitioner Family; Physician Assistant; Specialist; ADMIT Internal Medicine; ATTEND Internal Medicine
PROC: 30233N1 Transfusion of Nonautologous Red Blood Cells into Peripheral Vein, Percutaneous Approach (ICD-10-PCS; principal; 2021-06-05)
PROC: 0DH68UZ Insertion of Feeding Device into Stomach, Via Natural or Artificial Opening Endoscopic (ICD-10-PCS; 2021-06-09)
PROC: 05HY33Z Insertion of Infusion Device into Upper Vein, Percutaneous Approach (ICD-10-PCS; 2021-06-13)
DX: A41.9 Sepsis, unspecified organism (principal); L89.154 Pressure ulcer of sacral region, stage 4; L89.324 Pressure ulcer of left buttock, stage 4; L89.314 Pressure ulcer of right buttock, stage 4; E43 Unspecified severe protein-calorie malnutrition; G92 Toxic encephalopathy; G82.50 Quadriplegia, unspecified; R64 Cachexia; N39.0 Urinary tract infection, site not specified; A04.72 Enterocolitis due to Clostridium difficile, not specified as recurrent; G91.9 Hydrocephalus, unspecified; M46.28 Osteomyelitis of vertebra, sacral and sacrococcygeal region; M86.8X8 Other osteomyelitis, other site; G82.20 Paraplegia, unspecified; N17.9 Acute kidney failure, unspecified; D68.59 Other primary thrombophilia; Z68.1 Body mass index [BMI] 19.9 or less, adult; Z94.81 Bone marrow transplant status; E87.6 Hypokalemia; Z20.822 Contact with and (suspected) exposure to COVID-19; D47.3 Essential (hemorrhagic) thrombocythemia; I95.9 Hypotension, unspecified; N31.9 Neuromuscular dysfunction of bladder, unspecified; R53.81 Other malaise; E11.69 Type 2 diabetes mellitus with other specified complication; E83.42 Hypomagnesemia; B37.9 Candidiasis, unspecified; E83.39 Other disorders of phosphorus metabolism; F32.9 Major depressive disorder, single episode, unspecified; D63.8 Anemia in other chronic diseases classified elsewhere; E11.65 Type 2 diabetes mellitus with hyperglycemia; R65.20 Severe sepsis without septic shock; Z88.8 Allergy status to other drugs, medicaments and biological substances; Z79.01 Long term (current) use of anticoagulants
CPT/HCPCS: 10045; 10047; 10081; 62110; 62900; 70005

== ENCOUNTER → 2021-06-03 | Outpatient (CLI) | payer OTHER ==
[~2021-06-03] MED LIST: BACLOFEN5 MG PORT; CHOLECAL DF 951 EACH; ELIQUIS2.5 MG PO; LANTUS SUBQ; LOPRESSOR50 MG PO; MIRTAZAPINE7.5 MG; NORCO5 PO; SUPER THERAVIT1 EACH; VITAMIN C500 M2 PO; ZINC-22050 MG; ZOSYN 3/0.373.375 G3
== END ==
LOC: HYPER 07:52
PROVIDERS: ATTEND Specialist
DX: E10.622 Type 1 diabetes mellitus with other skin ulcer (principal); L89.314 Pressure ulcer of right buttock, stage 4; L89.224 Pressure ulcer of left hip, stage 4; L89.154 Pressure ulcer of sacral region, stage 4; L89.214 Pressure ulcer of right hip, stage 4; L89.323 Pressure ulcer of left buttock, stage 3; L98.415 Non-pressure chronic ulcer of buttock with muscle involvement without evidence of necrosis; L98.495 Non-pressure chronic ulcer of skin of other sites with muscle involvement without evidence of necrosis; E10.621 Type 1 diabetes mellitus with foot ulcer; L89.613 Pressure ulcer of right heel, stage 3; L97.411 Non-pressure chronic ulcer of right heel and midfoot limited to breakdown of skin; E10.69 Type 1 diabetes mellitus with other specified complication; M46.28 Osteomyelitis of vertebra, sacral and sacrococcygeal region; E10.40 Type 1 diabetes mellitus with diabetic neuropathy, unspecified; E10.21 Type 1 diabetes mellitus with diabetic nephropathy; E10.649 Type 1 diabetes mellitus with hypoglycemia without coma; R26.89 Other abnormalities of gait and mobility; M62.81 Muscle weakness (generalized); D84.9 Immunodeficiency, unspecified; D47.3 Essential (hemorrhagic) thrombocythemia; D64.9 Anemia, unspecified; R63.6 Underweight; G91.9 Hydrocephalus, unspecified; H91.09 Ototoxic hearing loss, unspecified ear; R00.0 Tachycardia, unspecified; I95.9 Hypotension, unspecified; E86.0 Dehydration; M41.84 Other forms of scoliosis, thoracic region; G82.21 Paraplegia, complete; G93.5 Compression of brain; Z90.79 Acquired absence of other genital organ(s); Z79.4 Long term (current) use of insulin; Z98.2 Presence of cerebrospinal fluid drainage device; Z48.816 Encounter for surgical aftercare following surgery on the genitourinary system; Z90.6 Acquired absence of other parts of urinary tract; Z93.2 Ileostomy status; Z85.51 Personal history of malignant neoplasm of bladder

== ENCOUNTER 2021-07-10 15:30 | Observation (INO) | payer MEDICARE, OTHER ==
[~2021-07-10] VITALS: Ht 157.5 cm; Wt 32.7 kg
[~2021-07-10 15:30] MED LIST changes: +ACETAMINOPHEN325 M1 PO; +FLORANEX GRANU1 EACH PO; +HUMALOG100 UNIT/1 SUBQ; +PEPCID20 MG PO; +PREDNISONE 20 M20 M1 PER TUBE; +VANCOMYCIN HCL250 M1 PER TUBE; +VANCOMYCIN500 MG/101 IV; +ZOSYN 3.373.375 GM/1 IV
[2021-07-10 15:35] VITALS: BP 152/97
[2021-07-10 19:10] LABS: HEMATOCRIT 34.9 % (42.0-52.0); HEMOGLOBIN 11.3 gm/dL (14.0-18.0); MCH 27.3 pg (26.0-34.0); MCHC 32.4 g/dL (28.0-37.0); MCV 84.3 fL (80.0-100.0); RBC 4.14 mil/uL (4.50-6.00); WBC 13.5 thou/uL (4.0-11.0)
[2021-07-10 19:18] LABS: CALCIUM 9.3 mg/dL (8.5-10.1); POTASSIUM 4.5 mmol/L (3.5-5.1)
[2021-07-10 19:24] LABS: ALBUMIN 2.1 g/dL (3.4-5.0); TOTAL BILIRUBIN 0.5 mg/dL (0.2-1.0)
[2021-07-10 23:30] VITALS: BP 120/80
[2021-07-11 00:28] VITALS: BP 119/87
--- NOTE | 2021-07-11 05:10 | NUR ---
Pt admitted from ED with Hyperglycemia/PEG dislodgement. A/OX3,tachy other vitals WNL. Anatoliy notified pt still tachy to change status to M/T,stated we first try treating it with IV fluids. Wound pics/care done to decubs on sacrum/IT w/o nay problems. Colostomy/urostomy intact. Fall precautions in place. Pt has been NPO since midnight for PEG placement. LIJ in place and patent,verified in ER. Placed on special contact for recent CDIFF infection.
[2021-07-11 06:50] LABS: HEMATOCRIT 32.3 % (42.0-52.0); HEMOGLOBIN 10.1 gm/dL (14.0-18.0); MCH 26.8 pg (26.0-34.0); MCHC 31.4 g/dL (28.0-37.0); MCV 85.6 fL (80.0-100.0); RBC 3.78 mil/uL (4.50-6.00); RDW 19.6 % (10.5-14.5); WBC 15.8 thou/uL (4.0-11.0)
[2021-07-11 06:55] LABS: CALCIUM 8.5 mg/dL (8.5-10.1); CREATININE 0.9 mg/dL (0.7-1.3); POTASSIUM 3.6 mmol/L (3.5-5.1)
[2021-07-11 07:46] VITALS: BP 110/69
--- NOTE | 2021-07-11 08:51 | NUR ---
When tube feeds able to resume, recommend start glucerna 1.2 at 55ml/hr and provide 1 packet son bid via flush.
--- NOTE | 2021-07-11 11:06 | NUR ---
PT ADMITTED RELATED TO HYPERGLYCEMIA/PEG TUBE DISLODGEMENT. CM REVEIWED CHART AND SPOKE WITH CARE TEAM. PT FAMILIAR TO CM HE HAD DISCHARGED Wednesday07/08/21 BACK TO [facility] CARE TEAM INDICATED THAT PT IS TO HAVE HIS PEG TUBE REPLACED THIS AFTERNOON AND WILL LIKELY BE MEDICALLY STABLE TO DC BACK TO [facility] POST PROCEDURE. CM NOTIFIED FACILITY THEY ARE AWARE AND ABLE TO ACCEPT PT BACK ONCE MEDICALLY STABLE.
--- NOTE | 2021-07-11 12:54 | NUR ---
ASSUMED PT CARE THIS AM. PT A&OX4, ABLE TO MAKE NEEDS KNOWN. WOUNDS DRESSED. PATIENT HAS A COLOSTOMY AND A UROSTOMY. PEG TUBE PLACEMENT SCHEDULED FOR THIS SHIFT. PATIENT PLACED ON TELEMETRY. IV PATENT, MEDICATIONS AND FLUIDS INFUSING. FALL PRECAUTIONS ARE IN PLACE, CALL LIGHT WITHIN REACH.
[2021-07-11 15:21] VITALS: BP 108/53
[2021-07-11 15:47] VITALS: BP 114/76
[2021-07-11 16:07] VITALS: BP 111/68
--- NOTE | 2021-07-12 06:08 | NUR ---
Pt. rested quietly at intervals during the night when checked on during frequent rounds. Pain med given (see emar) for c/o left thigh pain. Treat- ment done as ordered to buttocks wounds. Pt. turned and repositioned.
[2021-07-12 07:24] VITALS: BP 111/72
[2021-07-12 12:59] LABS: HEMATOCRIT 28.6 % (42.0-52.0); HEMOGLOBIN 8.7 gm/dL (14.0-18.0); MCH 26.4 pg (26.0-34.0); MCHC 30.5 g/dL (28.0-37.0); MCV 86.4 fL (80.0-100.0); RBC 3.31 mil/uL (4.50-6.00); RDW 19.5 % (10.5-14.5); WBC 9.4 thou/uL (4.0-11.0)
--- NOTE | 2021-07-12 17:02 | NUR ---
ASSUMED CARE OF PATIENT AT SHIFT CHANGE. ASSESSMENT CHARTED. MEDICATIONS ADMINITERED PER EMAR; PER TUBE W NO ISSUES. PATIENT IS A&OX4 AND ABLE TO MAKE NEEDS KNOWN. REPOSITIONED Q2HRS AND NEEDED. PATIENT WAS SEEN BY DIETITIAN YESTERDAY AND WAS RECCOMMENDED TO RESTART GLUCERNA MIXED WITH WOODY AT 55MLS/HR. FEEDING WAS INITIATED AND PATIENT TOLERATING WELL. PATIENT ASKS FOR PAIN MEDS NEEDED. PATIENT ALSO TOLERATING PO INTAKE WELL REGULAR DIET RESTARTED. PATIENT VOICING NO FURTHER NEEDS. PATIENT TO STAY ONE MORE OVERNIGHT TO SEE HOW WELL TUBE FEEDING IS TOLERATED AND WILL LIKELY DC BACK TO [facility]. CONTINUING FREQUENT MONITORING ON PATIENT
[2021-07-12 17:16] VITALS: BP 119/77
[2021-07-12 19:40] VITALS: BP 118/79
--- NOTE | 2021-07-13 04:01 | NUR ---
PATIENT TURNED Q 2 HOURS. PATIENT DENIED PAIN OR DISCOMFORT. PATIENT PEG TUBE IS INTACT. COLOSTOMY STOMA IS PINK AND MOIST NO S/S OF INFETION. FALL PRECAUTION IN PLACE.PATIENT IN BED ASLEEP AT THIS TIME BREATHING REGULAR AND UNLABOURED.
[2021-07-13 08:16] VITALS: BP 121/67
--- NOTE | 2021-07-13 16:48 | NUR ---
TODAY THIS PT VERITO BEEN D/C AND HAS BEEN ST ON THE MONITOR IN THE LOW 100S WITH SOME STATED PAIN IN WHICH IT WAS TAKEN CARE OF WITH MEDICATION. HE HAS BEEN ASLEEP FOR MOST OF THE DAY AFTER HIS BATH AND DRESSING CHANGE AND HE TOLERATED HIS FLUIDS AND TUBE FEEDINGS WELL. IJ WAS PULLED BEFORE D/C AND HE TOLERATED THAT WELL.
--- NOTE | 2021-07-31 08:50 | HC ---
[facility] [place] [address] CONSULTATION Name: LÓPEZ BOLAND Room #: 457-P [facility] Anselmo Khalil#: [id number] Admission: 07/10/21 Attend Phys: Ethan Holland MD Discharge: 07/13/21 Date of : 85 Report #: [id number] THIS REPORT FOR: cc: Phyllis Cohen,Mika Elizabeth MD ~ DATE OF SERVICE: 07/11/2021 WOUND CARE CONSULTATION PERSONAL PHYSICIAN: Not on staff. CHIEF COMPLAINT: Multiple decubitus ulcers. HISTORY OF PRESENT ILLNESS: This is a 36-year-old black male who has been a longstanding patient of ours for multiple decubitus ulcers. Most recently was hospitalized for PEG tube placement. The patient was sent back to his care facility several days ago and unfortunately the PEG tube has become dislodged. The patient was brought back to the hospital for possible replacement of the tube. The patient states his decubitus ulcers were all stable. The patient has no actual concerns about them. The patient denies any other associated concerns at this time. PAST MEDICAL HISTORY: Significant for paraplegia, history of Chiari malformation. The patient has a history of a neurogenic bladder, multiple decubitus ulcers in the bilateral ischial region, sacral and coccygeal region; history of fecal incontinence, now status post ostomy placement, history of urinary incontinence, status post suprapubic placement, diabetes mellitus, hypertension, multiple episodes of sepsis, protein calorie malnutrition, generalized debility. CURRENT MEDICATIONS: Multiple, I reviewed the patient's medication list. DRUG ALLERGIES: None. SOCIAL HISTORY: The patient resides in a long-term care facility. FAMILY HISTORY: Not pertinent to current medical condition. REVIEW OF SYSTEMS: CONSTITUTIONAL: The patient denies fevers or chills. NEUROLOGIC: The patient is quadriplegic. EYES: No complaints. EARS, NOSE AND THROAT: No complaints. CARDIAC: The patient denies chest pain, palpitations, peripheral edema. RESPIRATORY: The patient denies shortness of breath, cough or wheezes. [address] [address] CONSULTATION Name: LÓPEZ BOLAND [id number] Admission: 07/10/21 Attend Phys: Ethan Holland MD Discharge: 07/13/21 Date of : 85 Report #: [id number] GASTROINTESTINAL: The patient is status post PEG tube placement, which has now been dislodged. The patient states he still has been eating fairly well, just not in large amounts. Denies nausea, vomiting. GENITOURINARY: The patient has a suprapubic catheter. MUSCULOSKELETAL: No complaints. SKIN: The patient has multiple decubitus ulcers. PHYSICAL EXAMINATION: VITAL SIGNS: Stable. The patient is afebrile. GENERAL: This is a chronically ill-appearing, cachectic black male who is in no obvious distress. HEENT: Normocephalic, atraumatic. Mucous membranes are somewhat dry. Pupils are round. Sclerae white. NECK: Without JVD. LUNGS: Clear. HEART: Regular. ABDOMEN: Soft. PEG type is open with slight drainage. Ostomy bag is in place and functioning. Abdomen is nontender. Suprapubic catheter is in place. Evaluation of sacrococcygeal region reveals a stage IV decubitus ulcer which is fairly clean and granulating. There are also bilateral ischial ulcer which are clean and granulating, stage IV. EXTREMITIES: The patient has significant contractures of the upper and lower extremities. NEUROLOGIC: The patient is quadriplegic. LABORATORY DATA: BUN 37, creatinine 0.9. White count 15.8, hemoglobin 10.1, albumin 2.1. IMPRESSION: 1. Bilateral ischial decubitus ulcer, stage IV. 2. Sacral decubitus ulcer, stage IV. 3. Coccygeal decubitus ulcer, stage IV. 4. Paralysis. 5. History of Chiari malformation. 6. Sepsis secondary to urinary tract infection. 7. Diabetes mellitus. 8. History of fecal incontinence. 9. Severe protein-calorie malnutrition with albumin of 2.1. 10. History of urinary incontinence, status post suprapubic placement. PLAN: At this time, we will start Dakin's wet to dry dressings to all decubitus ulcers b.i.d. and p.r.n. We will have him on low air loss surface, have him turned every 2 hours. We will use heel protectors on at all times for pressure [address] [address] CONSULTATION Name: LÓPEZ BOLAND Room #: 457-P NANCIE Khalil#: [id number] Admission: 07/10/21 Attend Phys: Ethan Holland MD Discharge: 07/13/21 Date of : 85 Report #: [id number] prophylaxis. We will continue all other current medications. We will continue to watch the patient. I appreciate the ability to consult. <ELECTRONICALLY SIGNED> By: Mika Mathur MD 07/31/21 0850 1208 [id number] Mika Mathur MD /nt
== END 2021-07-13 15:29 ==
LOC: ER 15:30 → EROBS 20:00 → 4W 20:00
PROVIDERS: Nurse Practitioner Family; ADMIT Hospitalist; ATTEND Hospitalist
DX: K94.23 Gastrostomy malfunction (principal); Z20.822 Contact with and (suspected) exposure to COVID-19; R00.0 Tachycardia, unspecified; L89.159 Pressure ulcer of sacral region, unspecified stage; D72.829 Elevated white blood cell count, unspecified; I10 Essential (primary) hypertension; E78.5 Hyperlipidemia, unspecified; E03.9 Hypothyroidism, unspecified; D64.9 Anemia, unspecified; E11.9 Type 2 diabetes mellitus without complications; N31.9 Neuromuscular dysfunction of bladder, unspecified; Z79.4 Long term (current) use of insulin; Z79.899 Other long term (current) drug therapy; Z88.8 Allergy status to other drugs, medicaments and biological substances; Z91.018 Allergy to other foods; Z87.39 Personal history of other diseases of the musculoskeletal system and connective tissue
CPT/HCPCS: 10040; 62110; 62900; 70005

== ENCOUNTER 2021-07-17 08:26 | Inpatient (IN) | payer OTHER ==
[~2021-07-17] VITALS: Ht 157.5 cm; Wt 36.3 kg
--- NOTE | ~2021-07-17 | HC ---
[facility] [place] [address] CONSULTATION Name: LÓPEZ BOLAND Room #: 215-P [facility] IN .R.#: [id number] Admission: 07/17/21 Attend Phys: Isac Ulrich MD Discharge: Date of : 85 Report #: [id number] THIS REPORT FOR: cc: Phyllis Cohen,Mika Elizabeth MD ~ DATE OF SERVICE: 07/18/2021 WOUND CARE CONSULTATION PERSONAL PHYSICIAN: Dr. Cohen. CHIEF COMPLAINT: Multiple decubitus ulcers. HISTORY OF PRESENT ILLNESS: This is a 36-year-old black male who was just discharged within the past couple of days from the hospital after a dislodged feeding tube, now presents back for fever. The patient states his wounds have all been stable. The patient has no new wound care concerns at this time. PAST MEDICAL HISTORY: Significant for paraplegia with a history of Chiari malformation, multiple decubitus ulcers, sepsis, diabetes, hypertension, status post ostomy placement, suprapubic placement, multiple wound care debridements, history of severe protein-calorie malnutrition, generalized debility. CURRENT MEDICATIONS: Multiple. DRUG ALLERGIES: None. SOCIAL HISTORY: The patient resides in a long-term care facility. FAMILY HISTORY: Not pertinent to current medical condition. REVIEW OF SYSTEMS: CONSTITUTIONAL: The patient complains of fever. NEUROLOGIC: The patient is paralyzed. EYES: No complaints. ENT: No complaints. CARDIAC: The patient denies chest pain, palpitations, peripheral edema. RESPIRATORY: The patient has a slight cough. Denies shortness of breath. GASTROINTESTINAL: The patient has a colostomy. GENITOURINARY: The patient denies urgency. The patient has a suprapubic catheter. MUSCULOSKELETAL: No complaints. SKIN: The patient has multiple decubitus ulcers. PHYSICAL EXAMINATION: [facility] [address] [place] [address] CONSULTATION Name: LÓPEZ BOLAND Room #: 215-P [facility] IN [facility]#: [id number] Admission: 07/17/21 Attend Phys: Isac Ulrich MD Discharge: Date of : 85 Report #: [id number] VITAL SIGNS: Temperature 36.8, pulse 101, respirations 18, BP 90/53. GENERAL: This is a chronically ill-appearing cachectic black male who is in no obvious distress. HEENT: Normocephalic, atraumatic. Mucous membranes are dry. Pupils are round. Sclerae are white. NECK: Without JVD. LUNGS: Diminished breath sounds heard throughout. HEART: Tachycardic, regular rhythm. ABDOMEN: Soft, nontender. Ostomy is in place. PEG tube is in place. Suprapubic catheter is in place. Evaluation of sacral region reveals stage 4 decubitus ulcers. Evaluation of bilateral ischial ulcers reveals stage 4 decubitus ulcers, all of which are clean and dry. Ostomy clean and granulating. There are minimal signs of slough. There are no signs of overt infection. There is moderate amount of serosanguineous drainage noted without odor. Periwound is otherwise intact. EXTREMITIES: The patient has significant contractures of lower extremity. Bilateral heels are intact. NEUROLOGIC: Cranial nerves 2-12 are grossly intact. The patient is paralyzed. LABORATORY VALUES: White count 6.3, hemoglobin 8.1. Albumin is 1.4. IMPRESSION: 1. Chronic stage 4 decubitus ulcers, bilateral ischial tuberosities. The coccyx and sacral region are all stable, noninfected. 2. Paraplegia. 3. Sepsis. 4. Diabetes mellitus. 5. Hypertension. 6. History of fecal incontinence, status post ostomy placement. 7. History of urinary incontinence, status post suprapubic catheter placement. 8. History of severe protein-calorie malnutrition. Albumin 1.4. 9. Generalized debility. PLAN: At this time, we will continue with Dakin's wet-to-dry dressings to all of the decubitus ulcers b.i.d. and p.r.n. We will cover with ABDs. We will put the patient on low air loss surface, have him turned every 2 hours. We will put the patient in heel protection at all times for protection. We will make sure we maximize protein via the tube feedings, IV antibiotics per infectious disease. We will continue all other current medications. Appreciate ability to consult. By: 1201 [id number] Mika Mathur MD /nt
[2021-07-17 08:27] VITALS: BP 138/104
[2021-07-17 08:47] LABS: ABSOLUTE NEUTROPHILS 12.1 thou/uL (1.4-8.2); BASOPHILS 1.1 % (0.0-2.0); EOSINOPHILS 0.3 % (0.0-3.0); HEMATOCRIT 37.1 % (42.0-52.0); HEMOGLOBIN 11.5 gm/dL (14.0-18.0); LYMPHOCYTES 1.1 % (24.0-44.0); MCH 26.1 pg (26.0-34.0); MCHC 30.9 g/dL (28.0-37.0); MCV 84.6 fL (80.0-100.0); MONOCYTES 2.9 % (1.0-8.0); PLATELET COUNT 583 thou/uL (150-400); POLYS 94.6 % (36.0-66.0); RBC 4.39 mil/uL (4.50-6.00); RDW 18.7 % (10.5-14.5); WBC 12.8 thou/uL (4.0-11.0)
[2021-07-17 08:51] LABS: CALCIUM 9.6 mg/dL (8.5-10.1); CREATININE 1.5 mg/dL (0.7-1.3); POTASSIUM 5.5 mmol/L (3.5-5.1)
[2021-07-17 08:56] LABS: ALBUMIN 2.1 g/dL (3.4-5.0); TOTAL BILIRUBIN 0.4 mg/dL (0.2-1.0); TOTAL PROTEIN 9.1 g/dL (6.4-8.2)
[2021-07-17 09:18] LABS: ANISOCYTOSIS 1+; HYPOCHROMASIA 1+; PLATELET ESTIMATE NORMAL
[2021-07-17 09:22] LABS: BE(vivo) 1.6 mmol/L (-2 to +3); HCO3 26.8 mmol/L (22.0-26.0); PCO2 44.6 mmHg (35.0-45.0); PO2 60.1 mmHg (80.0-100.0); pH 7.396 (7.360-7.450); sO2 90.9 % (92.0-98.0)
--- NOTE | 2021-07-17 09:25 | NUR ---
LACTIC ACID OF 5.3 NOTED AT THIS TIME PER LAB. ED PROVIDER AND PRIMARY RN NOTIFIED
[2021-07-17 09:26] LABS: MAGNESIUM 2.4 mg/dL (1.8-2.4)
--- NOTE | 2021-07-17 11:00 | EKG ---
[place] [address] [address] [place] [address] ELECTROCARDIOGRAM REPORT Name: LÓPEZ BOLAND Room #: REG Remi#: [id number] Admission: 07/17/21 Attend Phys: Discharge: Date of : 85 Report #: [id number] [facility] ED Test Date: 2021-07-17 Test Time: 08:38:04 Pat Name: LÓPEZ BOLAND Department: Room: Gender: M P 3 Armament/Ordnance Ima Technician: CLAUDINE : 1985 Requested By: Rufina Marie Order Number: [id number] MD: Pako Hawley Measurements Intervals [place] Rate: 146 P: 69 MO: 113 QRS: 114 QRSD: 72 T: 57 QT: 294 QTc: 459 Interpretive Statements Sinus tachycardia Ventricular premature complex Consider right atrial enlargement Right axis deviation Consider left ventricular hypertrophy J Point elevation, probably due to LVH Artifact in lead(s) aVR,aVL,aVF,V1,V3,V4,V5,V6 Compared to ECG 07/05/2021 10:41:49 Right-axis deviation now present Aberrant conduction of supraventricular beat(s) no longer present Electronically Signed On 07-17-2021 11:00:25 CDT by Pako Hawley [email or web address] <ELECTRONICALLY SIGNED> By: Pako Hawley MD, FACC 07/17/21 1100 08 0838 Pako Hawley MD, FAC /EPI
[2021-07-17 12:45] LABS: URINE BILIRUBIN NEGATIVE (Negative); URINE BLOOD 2+ (Negative); URINE CLARITY CLOUDY; URINE COLOR YELLOW; URINE GLUCOSE-RANDOM* NEGATIVE (Negative); URINE KETONES NEGATIVE (Negative); URINE NITRITE-REFLEX NEGATIVE (Negative); URINE PROTEIN (DIPSTICK) 2+ (Negative); URINE SPECIFIC GRAVITY 1.015 (1.005-1.035); URINE UROBILINOGEN 0.2 E.U./dl (0.2-1.0)
[2021-07-17 12:46] LABS: URINE LEUKOCYTES-REFLEX 2+ (Negative)
[2021-07-17 12:49] LABS: AMORPHOUS URATES Moderate /LPF (None Seen); CASTS None Seen /LPF (None Seen); SQUAMOUS None Seen /LPF (0-3); URINE RBC 3-10 Few /HPF (NONE SEEN); URINE WBC-REFLEX >25 Many /HPF (0-5)
--- NOTE | 2021-07-17 13:05 | NUR ---
VASCULAR ACCESS NURSE NOTED THE ORDER FOR CENTRAL LINE PLACEMENT. THIS PATIENT IS WELL KNOWN TO OUR TEAM. LAST CT SHOWING BLOCKAGE TO THE RIGHT SIDE. PICCS AND CENTRAL LINES HAVE BEEN ATTEMPTED IN THE PAST. HE WILL NEED [facility] IV ANTIBIOTIC THERAPY AND LIKE LAST ADMIT A TICC LINE WAS SUGGESTED. LINE WILL NEED TO BE PLACED IN IR DUE TO BLOCKAGE, COLLATERAL AND ABMORMAL VASCULAR. SOFTWARE APPLICATIONS ENGINEER UPDATED.
[2021-07-17 13:21] LABS: ALBUMIN 2.2 g/dL (3.4-5.0); TOTAL PROTEIN 8.6 g/dL (6.4-8.2)
--- NOTE | 2021-07-17 13:27 | NUR ---
SPOKE TO MALARIOLOGIST X2. THIS PATIENT IS WELL KNOWN TO THE VASCULAR ACCESS TEAM. HE HAS BLOCKAGE ON THE RIGHT (SEE LAST CT) COLLATERAL CIRCULATION AND ABNORMAL VASCULAR. WE HAVE MADE ATTEMPTS AT PLACEMENT IN THE PAST. HE WILL NEED IR PLACEMENT
--- NOTE | 2021-07-17 15:16 | NUR ---
CALL RECIEVED FROM IR- PT ON HIS WAY BACK TO UNIT. TRIPLE LUMEN PICCLINE PLACED TO LEFT IJ. 50MCG OF FENTANYL GIVEN AND 13CC OF LIDOCAINE GIVEN TO NUMB AREA.
[2021-07-17 20:43] VITALS: BP 143/84
[2021-07-17 21:42] VITALS: BP 120/68
[2021-07-17 23:59] VITALS: BP 122/69
--- NOTE | 2021-07-18 03:33 | NUR ---
ASSUMED CARE OF PT AT 2030 FROM THE ED, PT IS A/O X4 WITH COLOSTOMY, UROSTOMY AND PEG TUBE IN PLACE. ASSESSMENT COMPLETED NOTED, UROSTOMY BAG CHANGED UPON ARRIVAL D/T LEAKING. PT C/O WOUND PAIN, MEDICATION GIVEN WITH RELIEF. WILL CONTINUE TO WORK TOWARDS PT'S POC
[2021-07-18 04:32] VITALS: BP 120/67
[2021-07-18 08:00] VITALS: BP 90/53
--- NOTE | 2021-07-18 08:33 | HC ---
[facility] [place] [address] CONSULTATION Name: LÓPEZ BOLAND Room #: 215-P ADM IN M.R.#: [id number] Admission: 07/17/21 Attend Phys: Isac Ulrich MD Discharge: Date of : 85 Report #: [id number] THIS REPORT FOR: cc: Phyllis Cohen,Galdino Quiros MD ~ DATE OF SERVICE: 07/17/2021 INFECTIOUS DISEASE CONSULTATION ATTENDING PHYSICIAN: Dr. Ulrich. REASON FOR CONSULTATION: Sepsis. HISTORY OF PRESENT ILLNESS: Chart reviewed. The patient examined. This is a patient well known to me, had extended hospitalization, just discharged within the last 2 weeks, has known chronic osteomyelitis, has got severe bilateral ischial decubitus ulcers in the setting of profound malnutrition and hypoalbuminemia. During his stay, he had developed C. diff colitis as well. At that time during the admission, percutaneous gastrostomy tube was placed and he was started on enteral nutrition. His p.o. intake has been variable, but ideally he has had more consistent treatment, although he was admitted last week with apparently dysfunctional tube returned only be admitted. He is not clear exactly why, although was told his blood sugars were markedly elevated and he was tachycardic. He denies significant pain. States he has been eating intermittently. On evaluation, he was found to have a markedly elevated glucose of 388. Sodium 129 probably artificially decreased. Creatinine 1.5, which will be indicative of renal failure consistent with his profound malnutrition and small body habitus. Coronavirus testing was negative. ABGs showed pH 7.396, pCO2 of 44.6, pO2 of 60.1 on room air. Chest x-ray showed no acute process. Urinalysis showed greater than [address] of the abdomen and pelvis that showed changes, although nothing substantially different from previous ulcers extend to the bone at the ischial site as well as sacrum. He is not aware of fevers. He was given a single dose of Zosyn. ALLERGIES: None known. MEDICATIONS: Include insulin, zinc, apixaban, baclofen, metoprolol, hydrocodone. 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 [address] CONSULTATION Name: LÓPEZ BOLAND Room #: 215-P [facility] IN ..#: [id number] Admission: 07/17/21 Attend Phys: Isac Ulrich MD Discharge: Date of : 85 Report #: [id number] SOCIAL AND FAMILY HISTORY: Available in the chart. REVIEW OF SYSTEMS: As above. PHYSICAL EXAMINATION: GENERAL: He is chronically ill appearing. He is mildly encephalopathic, although this may be his baseline. He is profoundly undernourished. VITAL SIGNS: Temperature 98.1, pulse 114, respirations 24, blood pressure 111/72. SKIN: Warm, dry. HEENT: Nasal cannula in place. NECK: Supple. LUNGS: Few scattered coarse breath sounds. HEART: Tachycardic, appears regular. ABDOMEN: Scaphoid, has got the right lower quadrant urostomy, left lower quadrant colostomy in place. Has got bilateral dressings on the ischial site. The right-sided wound tends to be fairly clean. I do not appreciate any palpable bone. GENITOURINARY AND RECTAL: Deferred. LABORATORY DATA: Prealbumin is 12.4, total protein 8.6 with an albumin of 2.2. CT of the abdomen and pelvis showed severe bilateral ischial decubitus ulcer with extension to the bone, also sacral decubitus ulcer with communication with bone as well. Urinalysis greater than 25 white cells. Procalcitonin 1.11. Lactic acid 2.1. D-dimer 0.9. Chest x-ray, no acute process. ASSESSMENT AND PLAN: Sepsis, likely complicated genitourinary tract source, complicated by hyperglycemia, lactic acidemia, setting of profound malnutrition and underlying severe decubitus ulcers, recently treated for chronic osteomyelitis, also recent Clostridium difficile colitis. We will initiate broad spectrum therapy, add oral vancomycin as well due to high likelihood of relapse of the C. diff. At this point, there is no evidence of focal pyogenic infection associated with his lungs. He is such a difficult situation ____ imagine he will be able to stay out of the hospital for any length of time. We will try to optimize his nutritional status. <ELECTRONICALLY SIGNED> By: Galdino Nelson MD 07/18/21 0833 [id number] 0001 Galdino Nelson MD /nt
--- NOTE | 2021-07-18 09:19 | NUR ---
Pt with chronic PEG. Recommend restart tube feed of glucerna 1.2 at 60ml/hr. Once hyponatremia corrected, start water flush of 240ml tid and add 1 packet son bid via PEG.
--- NOTE | 2021-07-18 11:45 | NUR ---
Case opened to follow for dc planning. Pt is well known to the care team due recent discharge back to [facility]termaker care at [facility] and multiple admissions over the past few months. The pt is total care and has stg iv wound care needs, iv atb, ostomies, and peg that has had recent revision. The pt's mother is very involved in his care and usually comes in to visit in the afternoon. The pt is A&ox3 but forgetful and relies on his mother for care coordination. The pt has used his medicare acute/snf days and some of his 60 lifetime days. [place]. [facility]. They are holding his bed and can accept him for readmission over the holiday weekend if medically ready for dc. Staff to contact Vandana at [phone] to arrange. Orders to be faxed to [phone]. Mom to be notified. [facility] form on chart and [employer] [facility] will need to be called to arrange with a three hour window. Chart copy will need to be sent with the pt as well.
[2021-07-18 11:53] LABS: HEMATOCRIT 25.2 % (42.0-52.0); MCV 84.4 fL (80.0-100.0); RBC 2.99 mil/uL (4.50-6.00); RDW 18.9 % (10.5-14.5); WBC 6.3 thou/uL (4.0-11.0)
[2021-07-18 12:00] VITALS: BP 93/59
[2021-07-18 12:07] LABS: HEMOGLOBIN 8.1 gm/dL (14.0-18.0)
[2021-07-18 12:10] LABS: ALBUMIN 1.4 g/dL (3.4-5.0); CALCIUM 8.1 mg/dL (8.5-10.1); CREATININE 0.7 mg/dL (0.7-1.3); MAGNESIUM 1.6 mg/dL (1.8-2.4); POTASSIUM 3.6 mmol/L (3.5-5.1); TOTAL BILIRUBIN 0.3 mg/dL (0.2-1.0); TOTAL PROTEIN 6.4 g/dL (6.4-8.2)
--- NOTE | 2021-07-18 13:47 | NUR ---
CARE ASSUMED THIS AM, ALERT AND ORIENTED X4. DENIES ANY CHEST PAIN, NAUSEA AND VOMITTING. ON RA, NO SIGNS OF DISTRESS. PEG TUBE IN PLACE, TF STARTED PER ORDER. COLOSTOMY AND UROSTOMY IN PLACE. PT HAS MULTIPLE DECUBITIS WOUNDS, CHANGED PER ORDER. FALL PRECAUTIONS IN PLACE. DENIES ANY NEEDS JEET, WILL CONTINUE TO MONITOR
[2021-07-18 16:00] VITALS: BP 105/67
[2021-07-18 19:28] VITALS: BP 108/67
[2021-07-19 04:04] VITALS: BP 107/62
--- NOTE | 2021-07-19 04:26 | NUR ---
PT IS ALERT AND ORIENTED X4. LUNGS ARE CLEAR. PT HAS A COLOSTOMY BAG AND UROSTOMY BAG. MULTIPLE COCCYX WOUNDS NOTED AND CHANGED WITH DAKINS SOLUCTION. CHANGED GOWN AND SHEETS AT THE SAME TIME. PT IN ISOLATION AWAITNG C-DIFF RESULTS. COMPLAINS OF SOME COCCCYX PAIN AND MEDICATED WITH HYDROCDIENE RELIEVES PAIN HE REPORTS. ONGOING NURSING CARE AT THIS TIME PER NURSING
--- NOTE | 2021-07-19 06:48 | NUR ---
BLOOD SUGAR 31 AMP D50 GIVEN FOR THAT AND RECHECK ON BLOOD SUGAR AFTER INTERVENTION WAS 172. NOW WILL CONTINUE TO ASSESS AND MONITOR PER NURSING.
[2021-07-19 07:55] VITALS: BP 95/56
[2021-07-19 12:00] VITALS: BP 114/72
[2021-07-19 15:50] VITALS: BP 106/62
[2021-07-19 18:50] LABS: CREATININE 0.7 mg/dL (0.7-1.3); MAGNESIUM 1.4 mg/dL (1.8-2.4); POTASSIUM 3.6 mmol/L (3.5-5.1)
--- NOTE | 2021-07-19 18:51 | NUR ---
NEW DRESSING APPLIED TO COCCYX AND HE TOLERATED WELL. DOES NOT SEEM TO BE IN PAIN. LABS DRAWN. FAMILY HERE AND PREFERS FOOD FROM HOME. WILL CONT WITH PLAN OF CARE.
[2021-07-19 18:56] LABS: HEMATOCRIT 27.1 % (42.0-52.0); HEMOGLOBIN 8.6 gm/dL (14.0-18.0); MCH 26.8 pg (26.0-34.0); MCHC 31.8 g/dL (28.0-37.0); MCV 84.2 fL (80.0-100.0); RBC 3.21 mil/uL (4.50-6.00); RDW 18.4 % (10.5-14.5); WBC 6.6 thou/uL (4.0-11.0)
[2021-07-19 19:53] VITALS: BP 112/69
--- NOTE | 2021-07-20 02:55 | NUR ---
PT IS ALERT AND ORIENTED X4. LUNGS ARE CLEAR TO DIMINISHED. WOUNDS CHANGED PER NURISING. GLUCERNA TUBE FEEDINGS INFUSING TOLERATING WELL. PT HAS A COLOSTOMY BAG AND UROSTOMY BAG TO DRAINAGE. COMPLAINS OF SOME PAIN AND PAIN MEDS GIVEN SEE MAR FOR TIME OF ADMINISTRATION. WATCHES TV AND IS IN PLEASANT SPIRIT. CALL LIGHT WITHIN REACH IF NEEDS NURSING ASSTANCE PER STAFF.
[2021-07-20 04:23] VITALS: BP 123/78
[2021-07-20 07:06] LABS: HEMATOCRIT 25.2 % (42.0-52.0); HEMOGLOBIN 7.8 gm/dL (14.0-18.0); MCH 26.2 pg (26.0-34.0); MCHC 30.9 g/dL (28.0-37.0); RBC 2.96 mil/uL (4.50-6.00); RDW 18.9 % (10.5-14.5); WBC 5.7 thou/uL (4.0-11.0)
[2021-07-20 07:14] LABS: CALCIUM 7.9 mg/dL (8.5-10.1); CREATININE 0.7 mg/dL (0.7-1.3); MAGNESIUM 1.5 mg/dL (1.8-2.4); POTASSIUM 3.8 mmol/L (3.5-5.1)
[2021-07-20 08:57] VITALS: BP 96/53
--- NOTE | 2021-07-20 10:43 | HC ---
[place] [address] CONSULTATION Name: LÓPEZ BOLAND Room #: 215-P ADM IN M.R.#: [id number] Admission: 07/17/21 Attend Phys: Isac Ulrich MD Discharge: Date of : 85 Report #: [id number] THIS REPORT FOR: cc: Phyllis Cohen,Myron Hu MD ~ cc: Isac Ulrich MD DATE OF SERVICE: 07/19/2021 HISTORY OF PRESENT ILLNESS: The patient is a 36-year-old male with a history of hydrocephalus, status post CHERRY PITTER shunt, multiple medical problems, bedridden. He has a diverting colostomy for severe decubitus ulcers. He has had a PEG tube placed for nutritional support. He has a history of anemia of chronic disease with previous bone marrow transplant, diabetes, history of osteomyelitis, history of urostomy, was evaluated in the Emergency Room from his nursing facility for hyperglycemia. He is able to swallow, but most of his nutrition is obtained through his PEG tube. The PEG tube was placed on 06/09/2021. At that time, normal esophagus, normal stomach, normal small bowel was noted. He did have an episode where the PEG tube fell out in the last few weeks and this was replaced on 07/11/2021. Reason for GI consultation is drop in hemoglobin and stools are Hemoccult positive. There is no evidence of bright red blood per ostomy in his ostomy bag or any signs of obvious bleeding. The patient denies any nausea, abdominal pain, no vomiting, no hematemesis. He has been tolerating his tube feeds well. PAST MEDICAL HISTORY: Hydrocephalus, status post CHERRY PITTER shunt, bone marrow transplant, history of severe malnutrition, status post PEG tube placement, history of severe decubitus ulcers, diverting colostomy, osteomyelitis, diabetes, severe debility, previous history of COVID infection, anemia of chronic disease, neurogenic bladder, scoliosis. ALLERGIES: LISINOPRIL. REVIEW OF SYSTEMS: As per HPI. SOCIAL HISTORY: Denies any tobacco or alcohol use. CURRENT MEDICATIONS: Insulin, Protonix b.i.d. was started at this time, probiotics, apixaban which has been held at this time, baclofen, meropenem, vancomycin, metoprolol, hydrocodone. PHYSICAL EXAMINATION: VITAL SIGNS: Temperature 36.4, pulse is 86, blood pressure 107/62, respiratory rate is 18. GENERAL: He is alert and oriented x 3, [place] [address] CONSULTATION Name: LÓPEZ BOLAND Room #: 215-P [facility] IN ..#: [id number] Admission: 07/17/21 Attend Phys: Isac Ulrich MD Discharge: Date of : 85 Report #: [id number] HEENT: Sclerae nonicteric. Oropharynx clear. NECK: Supple. CARDIAC: Regular rate. CHEST: Decreased breath sounds bilaterally. ABDOMEN: Soft. His PEG tube was noted to be in position. There is no evidence of bleeding around the PEG tube. Abdomen is mildly distended. He has a colostomy in the left lower quadrant, in the bag there is brown stool. No evidence of blood grossly. EXTREMITIES: Severe contractures with thin extremities bilaterally. LABORATORY DATA: WBC 6.3, hemoglobin today is 8.1, was 11.5 yesterday. Repeat is scheduled for this afternoon. Platelet count is 348. Sodium 133, potassium 3.6, chloride 99, bicarbonate 29, BUN 23, creatinine 0.7, glucose 74, lactic acid level 0.9, calcium 8.1, phosphorus 3.4, magnesium 1.6. Iron 26, TIBC is 151, percent sat is 17, ferritin 313, total bilirubin 0.3, AST 31, ALT 31, alkaline phosphatase 131. Troponin less than 0.06, total protein 6.4, albumin 1.4, prealbumin 12.4. CT scan of the pelvis on 07/17/2021 shows severe bilateral interstitial signal decubitus ulcers which communicated with the bone and these were similar to prior exam. Sacral decubitus ulcer also seen significantly and now the sacrum appears to be exposed to the ulcer bed. Left greater trochanteric decubitus ulcer remains. No definitive abscess. ASSESSMENT AND PLAN: Anemia, drop in hemoglobin and hemoccult positive stool. Stool in the patient's colostomy is brown at this time, there are no signs of any significant gastrointestinal bleed. Part of the drop of hemoglobin may be dilutional. Plan is to continue to monitor hemoglobin closely. Continue to hold anticoagulation therapy and PPI therapy, which has just been started. May need to consider endoscopy if there is a further drop in hemoglobin or signs of significant bleeding in the near future. We will continue to follow closely. Thank you for allowing me to participate in his care. <ELECTRONICALLY SIGNED> By: Myron Mohr MD 07/20/21 1043 1120 [id number] Myron Mohr MD /nt
[2021-07-20 13:00] VITALS: BP 113/63
[2021-07-20 17:56] VITALS: BP 100/63
[2021-07-20 19:46] VITALS: BP 107/64
--- NOTE | 2021-07-20 19:47 | NUR ---
PT ALERT AND ORIENTED TIMES FOUR. VSS. IVF INFUSING PER ORDER. PT DENEIS PAIN/SOA. UROSTOMY AND COLOSTOMY TO DD. TUBE FEEDING PER PEG AT GOAL RATE OF 60 PT TOLERATES WELL. PT ALSO TOLERATES MEALS. DRESSING TO COCCYX CHANGED. NO ACUTE DISTRESS NOTED. WILL CONTINUE TO MONITOR.
[2021-07-21] VITALS (7 sets, daily range): BP systolic 104–120; BP diastolic 51–76
[2021-07-21 06:12] LABS: HEMATOCRIT 23.9 % (42.0-52.0); HEMOGLOBIN 7.8 gm/dL (14.0-18.0); MCH 27.5 pg (26.0-34.0); MCHC 32.8 g/dL (28.0-37.0); MCV 83.9 fL (80.0-100.0); RBC 2.85 mil/uL (4.50-6.00); RDW 18.9 % (10.5-14.5); WBC 5.8 thou/uL (4.0-11.0)
[2021-07-21 06:19] LABS: CALCIUM 7.9 mg/dL (8.5-10.1); CREATININE 0.6 mg/dL (0.7-1.3); MAGNESIUM 1.9 mg/dL (1.8-2.4); POTASSIUM 4.3 mmol/L (3.5-5.1)
--- NOTE | 2021-07-21 06:35 | NUR ---
Assumed pt's care beginning of this pm shift. Alert and oriented x4. Took pills PO, liquid med per tube. Q2 turn. Urostomy bag changed this am due to leakage. Wound changed this am. Colostomy bag with output. Boots to bilateral feet. Pt's residual this am per tube 175ml. Per tank charger, if residual >x2 goal rate, hold feeding and notify physician. Feeding on hold at this time, SHEMAR Arnold notified. Fall precaution in place. Call light within reach. Will continue to monitor.
--- NOTE | 2021-07-21 19:36 | NUR ---
End shift note: Pt remained stable and comfortable, WC provided, GLuc covered , all meds administered as scheduled, ST on tele all day, pain controlled, PeC tube w/o complications. CL intact. Continue POC.
--- NOTE | 2021-07-21 21:06 | NUR ---
pt a/o x4 rates pain to buttocks a 3 and denies need for medication. lungs clear abdomen soft with active bs. pt is frail and contractured. prafo boots in place. has a urostomy that is connected to a drainage bag putting out adequate amount of clear yellow urine. colostomy intact with liquid brown stool. wounds to buttocks with dressings that were changed during day shift remain intact. telemetry intact reading st with rates in 117 range. vss accucheck and ssi continue 227 at 0 and 4 units given.
--- NOTE | 2021-07-21 21:56 | NUR ---
report to [facility] DAY to transfer via bed.
[2021-07-22] VITALS (7 sets, daily range): BP systolic 102–127; BP diastolic 51–75
--- NOTE | 2021-07-22 03:16 | NUR ---
Pt transferred to [facility] at 2230 via bed. A/OX4,VSS,tachy on tele,asymptomatic. C/o pain on buttocks,medicated per EMAR with relief reported. Wound care done w/o problems. Urostomy bag changed/colostomy bag in place. Left chest central line in place and patent. Tube feeding on going with Jevity 1.5 @60ml w//o any residual noted. Repositioned every 2 hrs,on a SANTO,heel protectors on.Call light/personal items within reach,will continue to monitor pt.
[2021-07-22 04:52] LABS: HEMATOCRIT 25.3 % (42.0-52.0); HEMOGLOBIN 7.9 gm/dL (14.0-18.0); MCH 26.3 pg (26.0-34.0); MCHC 31.3 g/dL (28.0-37.0); MCV 84.2 fL (80.0-100.0); RBC 3.01 mil/uL (4.50-6.00); RDW 18.3 % (10.5-14.5); WBC 8.1 thou/uL (4.0-11.0)
[2021-07-22 04:57] LABS: CALCIUM 8.3 mg/dL (8.5-10.1); CREATININE 0.8 mg/dL (0.7-1.3); MAGNESIUM 1.6 mg/dL (1.8-2.4); POTASSIUM 4.4 mmol/L (3.5-5.1)
--- NOTE | 2021-07-22 09:19 | NUR ---
OSTOMY CARE; AWAKE, ALERT, COOPERATIVE, BOTH UROSTOMY AND COLOSTOMY POUCHES LOOSE, NEW POUCH JANET CONVEX 1' APPLIED TO UROSTOMY STOMA, STOMA PINK VIABLE SLIGHTLY BUDDED, PERISTOMAL SKIN INTACT, CLEAR URINE NOTED, CONNECTED TO DEP DRAINAGE SYSTEM, NEW POUCH JANET CUT TO FIT APPLIED TO COLOSTOMY STOMA, STOMA PINK VIABLE SLIGHTLY BUDDED, ADAPT RING APPLIED UNDER WAFER, PERISTOMAL SKIN INTACT, LOOSE BROWN STOOL NOTED, SUPPLIES PLACED AT BS RECOMMENDATIONS; CHANGE POUCHES Q 2-4 DAYS AND PRN, EMPTY PRN WARP PICKER AWARE
--- NOTE | 2021-07-22 11:42 | NUR ---
ASSUMED PT CARE THIS AM. PT IS ALERT & ORIENTED X4. PT HAS IV SITE ON L CHEST PICC LINE TRIPLE LUMEN RUNNING NS @100ML/HR. PT IS ON TELE MONITOR ON. PT HAS UROSTOMY, COLOSTOMY AND PEG TUBE. HANG NEW GLUCERNA 1.2 THIS AN. PT IS TURN Q2H AND HAS LOW AIR LOSS MATTRESS. PT IS ACCUCHECK ACHS. WILL DO WOUND CARE LATER THIS AFTERNOON. PT TOLERATED DIET AND MEDICATION WELL. NO C/O OF NAUSEA AND VOMITING THIS AM. WILL CONTINUE TO MONITOR PT. FOLLOW POC.
--- NOTE | 2021-07-22 11:47 | NUR ---
WOUND CARE; ROUNDING WITH DR GIRON. THIS IS A WELL KNOW PATIENT TO INPATIENT AND OUTPATIENT WOUND CARE. THE WOUNDS ARE STABLE AND NON-FRIABLE. RECCOMMENDATIONS; CONTINUE DAKINS MOIST GAUZE, ABD SECURE WITH TAPE DAILY/PRN.
--- NOTE | 2021-07-23 00:21 | NUR ---
UPON SHIFT ASSESSMENT, PT AOX4. PT DENIES PAIN AND SOB WHILE ON ROOM AIR. PT TOLERATING PO INTAKE OF FLUIDS AND REGULAR DIET WITHOUT ISSUE, PEG TUBE REMAINS IN PLACE, PATENT. PT WITHOUT NAUSEA OR EMESIS. UROSTOMY AND COLOSTOMY REMAIN INTACT. PT RESTING IN BED THROUGHOUT SHIFT, FREQUENT REPOSITIONING ENCOURAGED. PT REPORTS NUMBNESS AND TINGLING IN BILATERAL HANDS AND FEET. CAPILLARY REFILL LESS THAN 3SEC. PERIPHERAL PULSES PALPABLE IN ALL EXTREMITIES. PT ENCOURAGED TO NOTIFY STAFF FOR ALL NEEDS, CALL LIGHT WITHIN REACH, BED ALARM ON, BED LOCKED IN LOWEST POSITION, FREQUENT MONITORING WILL CONTINUE.
[2021-07-23 03:24] VITALS: BP 127/78
[2021-07-23 07:06] VITALS: BP 147/83
[2021-07-23 11:53] LABS: ABSOLUTE NEUTROPHILS 4.9 thou/uL (1.4-8.2); BASOPHILS 1.1 % (0.0-2.0); EOSINOPHILS 2.9 % (0.0-3.0); HEMATOCRIT 27.2 % (42.0-52.0); HEMOGLOBIN 8.5 gm/dL (14.0-18.0); LYMPHOCYTES 5.6 % (24.0-44.0); MCH 26.3 pg (26.0-34.0); MCHC 31.2 g/dL (28.0-37.0); MCV 84.3 fL (80.0-100.0); MONOCYTES 9.4 % (1.0-8.0); RBC 3.23 mil/uL (4.50-6.00); RDW 18.9 % (10.5-14.5); WBC 6.1 thou/uL (4.0-11.0)
[2021-07-23 11:55] LABS: PLATELET COUNT 629 thou/uL (150-400)
[2021-07-23 12:04] LABS: CALCIUM 8.6 mg/dL (8.5-10.1); CREATININE 0.8 mg/dL (0.7-1.3); POTASSIUM 4.8 mmol/L (3.5-5.1)
--- NOTE | 2021-07-23 12:28 | NUR ---
CARE TEAM INDICATED THAT THEY HAD ORDERED LABS FOR TODAY BUT THAT IF EVERYTHING LOOKED OK PT COULD BE MEDICALLY STABLE TO [place] [facility] [place]. CM UPDATED TIANNA IN [place]IONS AT [facility] [place] AND AGREEABLE WITH POTENTIAL RETURN.
--- NOTE | 2021-07-23 14:11 | NUR ---
Nutrition: REC D/C IVFs now that hyponatremia corrected and order water flushes of 250 mL TID with Kj packets BID in flushes.
[2021-07-23] MEDS ORDERED: FIRVANQ50 MG/1 ML PER TUBE (15:02)
[2021-07-23] MEDS ORDERED: CIPRO500 M1 PO (15:03)
[2021-07-23] MEDS ORDERED: PROTONIX40 M2 PO (15:03)
[2021-07-23 15:18] VITALS: BP 114/72
[2021-07-23 15:36] VITALS: BP 114/72
--- NOTE | 2021-07-23 15:50 | NUR ---
CARE TEAM INDICATED THAT PT IS MEDICALLY STABLE TO DC HOME THIS DAY. CM NOTIFIED [facility]. THEY ARE AWARE AND ABLE TO ACCEPT HIM BACK. CHART COPY MADE. ORDERS FAXED. CM SET UP STRETCHER TRANSPORT THROUGH [facility] AND [facility] TRIP NUMBER [id number] PATTERN GENERATOR OPERATOR BETWEEN [phone]. NURSE TO CALL REPORT. NO OTHER CM INTERVENTION INDICATED. CASE CLOSED. CM NOTIFIED PT AND MOTHER. MOTHER EXPRESSED CONCERN ABOUT PT'S HIGH BLOOD GLUCOSE OF 485 THIS AM. CM NOTIFIED NURSE AND ASKED HER TO FOLLOW UP WITH HER REGARDING THAT.
--- NOTE | 2021-07-23 16:53 | NUR ---
Patient and Patients mother (Agnes) educated on pt discharge instructions, medications covered. Questions asked and answered. Patient able to make needs known. Patient left via strectcher by Ems. Denies pain or discomfort. No distress or discomfort noted.
== END 2021-07-23 17:26 | DRG 871 ==
LOC: ER 08:26 → EROBS 12:00 → 2N 12:00 → EROBS 17:35 → 2N 21:10 → 4W 07-21 22:01
PROVIDERS: Emergency Medicine; Hospitalist; ADMIT Internal Medicine; ATTEND Internal Medicine
PROC: 0JH63XZ Insertion of Tunneled Vascular Access Device into Chest Subcutaneous Tissue and Fascia, Percutaneous Approach (ICD-10-PCS; principal; 2021-07-17)
PROC: 05HY33Z Insertion of Infusion Device into Upper Vein, Percutaneous Approach (ICD-10-PCS; principal; 2021-07-17)
PROC: B54NZZA Ultrasonography of Left Upper Extremity Veins, Guidance (ICD-10-PCS; principal; 2021-07-17)
PROC: B51N1ZA Fluoroscopy of Left Upper Extremity Veins using Low Osmolar Contrast, Guidance (ICD-10-PCS; principal; 2021-07-17)
DX: A41.9 Sepsis, unspecified organism (principal); L89.154 Pressure ulcer of sacral region, stage 4; L89.324 Pressure ulcer of left buttock, stage 4; L89.314 Pressure ulcer of right buttock, stage 4; E43 Unspecified severe protein-calorie malnutrition; N39.0 Urinary tract infection, site not specified; E87.1 Hypo-osmolality and hyponatremia; G82.20 Paraplegia, unspecified; D62 Acute posthemorrhagic anemia; I82.B29 Chronic embolism and thrombosis of unspecified subclavian vein; I82.C29 Chronic embolism and thrombosis of unspecified internal jugular vein; N17.9 Acute kidney failure, unspecified; Z94.81 Bone marrow transplant status; Z68.1 Body mass index [BMI] 19.9 or less, adult; Z20.822 Contact with and (suspected) exposure to COVID-19; R65.20 Severe sepsis without septic shock; E11.65 Type 2 diabetes mellitus with hyperglycemia; I10 Essential (primary) hypertension; R53.81 Other malaise; N31.9 Neuromuscular dysfunction of bladder, unspecified; E87.5 Hyperkalemia; R15.9 Full incontinence of feces; Z93.3 Colostomy status; Z90.6 Acquired absence of other parts of urinary tract; Z88.8 Allergy status to other drugs, medicaments and biological substances; Z93.1 Gastrostomy status
CPT/HCPCS: 10045; 10081

== ENCOUNTER → 2021-08-05 | Outpatient (CLI) | payer OTHER ==
[~2021-08-05] MED LIST changes: +CIPRO500 M1 PO; +FIRVANQ50 MG/1 ML PER TUBE; +PROTONIX40 M2 PO
== END ==
LOC: HYPER 07-29 07:44
PROVIDERS: ATTEND Specialist
DX: E10.622 Type 1 diabetes mellitus with other skin ulcer (principal); L89.314 Pressure ulcer of right buttock, stage 4; L89.323 Pressure ulcer of left buttock, stage 3; L98.415 Non-pressure chronic ulcer of buttock with muscle involvement without evidence of necrosis; L89.154 Pressure ulcer of sacral region, stage 4; L89.224 Pressure ulcer of left hip, stage 4; L89.214 Pressure ulcer of right hip, stage 4; L98.491 Non-pressure chronic ulcer of skin of other sites limited to breakdown of skin; E10.649 Type 1 diabetes mellitus with hypoglycemia without coma; E10.69 Type 1 diabetes mellitus with other specified complication; M46.28 Osteomyelitis of vertebra, sacral and sacrococcygeal region; E10.40 Type 1 diabetes mellitus with diabetic neuropathy, unspecified; R26.89 Other abnormalities of gait and mobility; H91.09 Ototoxic hearing loss, unspecified ear; R63.6 Underweight; D64.9 Anemia, unspecified; D84.9 Immunodeficiency, unspecified; D47.3 Essential (hemorrhagic) thrombocythemia; E86.0 Dehydration; G82.21 Paraplegia, complete; G91.9 Hydrocephalus, unspecified; G93.5 Compression of brain; I95.9 Hypotension, unspecified; R00.0 Tachycardia, unspecified; M41.84 Other forms of scoliosis, thoracic region; M62.81 Muscle weakness (generalized); Z79.4 Long term (current) use of insulin; Z90.6 Acquired absence of other parts of urinary tract; Z98.2 Presence of cerebrospinal fluid drainage device; Z90.79 Acquired absence of other genital organ(s); Z93.2 Ileostomy status; Z48.816 Encounter for surgical aftercare following surgery on the genitourinary system; Z85.51 Personal history of malignant neoplasm of bladder

== ENCOUNTER → 2021-08-19 | Outpatient (CLI) | payer OTHER | LOC: HYPER 07:40 | PROVIDERS: ATTEND Specialist | DX: E10.622 Type 1 diabetes mellitus with other skin ulcer (principal); L89.314 Pressure ulcer of right buttock, stage 4; L89.323 Pressure ulcer of left buttock, stage 3; L98.415 Non-pressure chronic ulcer of buttock with muscle involvement without evidence of necrosis; L89.154 Pressure ulcer of sacral region, stage 4; L89.224 Pressure ulcer of left hip, stage 4; L89.214 Pressure ulcer of right hip, stage 4; L98.496 Non-pressure chronic ulcer of skin of other sites with bone involvement without evidence of necrosis; E10.649 Type 1 diabetes mellitus with hypoglycemia without coma; E10.69 Type 1 diabetes mellitus with other specified complication; M46.28 Osteomyelitis of vertebra, sacral and sacrococcygeal region; E10.21 Type 1 diabetes mellitus with diabetic nephropathy; E10.40 Type 1 diabetes mellitus with diabetic neuropathy, unspecified; R26.89 Other abnormalities of gait and mobility; H91.09 Ototoxic hearing loss, unspecified ear; R63.6 Underweight; D64.9 Anemia, unspecified; D84.9 Immunodeficiency, unspecified; D47.3 Essential (hemorrhagic) thrombocythemia; E86.0 Dehydration; G82.21 Paraplegia, complete; G91.9 Hydrocephalus, unspecified; G93.5 Compression of brain; I95.9 Hypotension, unspecified; R00.0 Tachycardia, unspecified; M41.84 Other forms of scoliosis, thoracic region; M62.81 Muscle weakness (generalized); Z79.4 Long term (current) use of insulin; Z90.6 Acquired absence of other parts of urinary tract; Z98.2 Presence of cerebrospinal fluid drainage device; Z90.79 Acquired absence of other genital organ(s); Z93.2 Ileostomy status; Z48.816 Encounter for surgical aftercare following surgery on the genitourinary system; Z85.51 Personal history of malignant neoplasm of bladder ==

== ENCOUNTER → 2021-09-09 | Outpatient (CLI) | payer OTHER | LOC: HYPER 08:45 | PROVIDERS: ATTEND Specialist | DX: E10.622 Type 1 diabetes mellitus with other skin ulcer (principal); L89.314 Pressure ulcer of right buttock, stage 4; L89.154 Pressure ulcer of sacral region, stage 4; L89.224 Pressure ulcer of left hip, stage 4; L89.214 Pressure ulcer of right hip, stage 4; R26.89 Other abnormalities of gait and mobility; L89.323 Pressure ulcer of left buttock, stage 3; L98.415 Non-pressure chronic ulcer of buttock with muscle involvement without evidence of necrosis; L98.492 Non-pressure chronic ulcer of skin of other sites with fat layer exposed; E10.40 Type 1 diabetes mellitus with diabetic neuropathy, unspecified; M62.81 Muscle weakness (generalized); R63.6 Underweight; E10.649 Type 1 diabetes mellitus with hypoglycemia without coma; D64.9 Anemia, unspecified; G82.21 Paraplegia, complete; D84.9 Immunodeficiency, unspecified; H91.09 Ototoxic hearing loss, unspecified ear; D47.3 Essential (hemorrhagic) thrombocythemia; M41.84 Other forms of scoliosis, thoracic region; G91.9 Hydrocephalus, unspecified; G93.5 Compression of brain; E86.0 Dehydration; I95.9 Hypotension, unspecified; R00.0 Tachycardia, unspecified; L84 Corns and callosities; Z79.4 Long term (current) use of insulin; Z93.2 Ileostomy status; Z98.2 Presence of cerebrospinal fluid drainage device; Z90.6 Acquired absence of other parts of urinary tract; Z90.79 Acquired absence of other genital organ(s); Z85.51 Personal history of malignant neoplasm of bladder; Z79.899 Other long term (current) drug therapy ==

== ENCOUNTER → 2021-10-07 | Outpatient (CLI) | payer OTHER | LOC: HYPER 10:00 | PROVIDERS: ATTEND Specialist | DX: E10.622 Type 1 diabetes mellitus with other skin ulcer (principal); L89.314 Pressure ulcer of right buttock, stage 4; L89.154 Pressure ulcer of sacral region, stage 4; L89.224 Pressure ulcer of left hip, stage 4; L89.214 Pressure ulcer of right hip, stage 4; L98.415 Non-pressure chronic ulcer of buttock with muscle involvement without evidence of necrosis; L89.324 Pressure ulcer of left buttock, stage 4; L98.496 Non-pressure chronic ulcer of skin of other sites with bone involvement without evidence of necrosis; E10.69 Type 1 diabetes mellitus with other specified complication; M46.28 Osteomyelitis of vertebra, sacral and sacrococcygeal region; E10.40 Type 1 diabetes mellitus with diabetic neuropathy, unspecified; L84 Corns and callosities; R26.89 Other abnormalities of gait and mobility; M62.81 Muscle weakness (generalized); R63.6 Underweight; E10.649 Type 1 diabetes mellitus with hypoglycemia without coma; D64.9 Anemia, unspecified; G82.21 Paraplegia, complete; H91.09 Ototoxic hearing loss, unspecified ear; G93.5 Compression of brain; E86.0 Dehydration; I95.9 Hypotension, unspecified; M41.84 Other forms of scoliosis, thoracic region; G91.9 Hydrocephalus, unspecified; R00.0 Tachycardia, unspecified; Z98.2 Presence of cerebrospinal fluid drainage device; Z90.79 Acquired absence of other genital organ(s); Z90.6 Acquired absence of other parts of urinary tract; Z93.2 Ileostomy status ==

== ENCOUNTER → 2021-10-28 | Outpatient (CLI) | payer OTHER | LOC: HYPER 10:01 | PROVIDERS: ATTEND Specialist | DX: E10.622 Type 1 diabetes mellitus with other skin ulcer (principal); L89.314 Pressure ulcer of right buttock, stage 4; L89.324 Pressure ulcer of left buttock, stage 4; L98.416 Non-pressure chronic ulcer of buttock with bone involvement without evidence of necrosis; L89.154 Pressure ulcer of sacral region, stage 4; L89.224 Pressure ulcer of left hip, stage 4; L89.214 Pressure ulcer of right hip, stage 4; L98.496 Non-pressure chronic ulcer of skin of other sites with bone involvement without evidence of necrosis; E10.69 Type 1 diabetes mellitus with other specified complication; M46.28 Osteomyelitis of vertebra, sacral and sacrococcygeal region; E10.40 Type 1 diabetes mellitus with diabetic neuropathy, unspecified; R26.89 Other abnormalities of gait and mobility; R63.6 Underweight; E10.649 Type 1 diabetes mellitus with hypoglycemia without coma; D64.9 Anemia, unspecified; L84 Corns and callosities; G82.21 Paraplegia, complete; H91.09 Ototoxic hearing loss, unspecified ear; M62.81 Muscle weakness (generalized); G93.5 Compression of brain; E86.0 Dehydration; I95.9 Hypotension, unspecified; Z85.51 Personal history of malignant neoplasm of bladder; Z93.2 Ileostomy status; Z79.899 Other long term (current) drug therapy; Z90.6 Acquired absence of other parts of urinary tract ==

== ENCOUNTER → 2021-11-11 | Outpatient (CLI) | payer OTHER | LOC: HYPER 09:56 | PROVIDERS: ATTEND Specialist | DX: E10.622 Type 1 diabetes mellitus with other skin ulcer (principal); L89.314 Pressure ulcer of right buttock, stage 4; L89.324 Pressure ulcer of left buttock, stage 4; L98.416 Non-pressure chronic ulcer of buttock with bone involvement without evidence of necrosis; L89.154 Pressure ulcer of sacral region, stage 4; L89.224 Pressure ulcer of left hip, stage 4; L89.214 Pressure ulcer of right hip, stage 4; L98.496 Non-pressure chronic ulcer of skin of other sites with bone involvement without evidence of necrosis; L89.623 Pressure ulcer of left heel, stage 3; L97.421 Non-pressure chronic ulcer of left heel and midfoot limited to breakdown of skin; S81.8 Open wound of lower leg; L84 Corns and callosities; E10.69 Type 1 diabetes mellitus with other specified complication; M46.28 Osteomyelitis of vertebra, sacral and sacrococcygeal region; E10.40 Type 1 diabetes mellitus with diabetic neuropathy, unspecified; R26.89 Other abnormalities of gait and mobility; R63.6 Underweight; E10.649 Type 1 diabetes mellitus with hypoglycemia without coma; D64.9 Anemia, unspecified; D84.9 Immunodeficiency, unspecified; D47.3 Essential (hemorrhagic) thrombocythemia; G82.21 Paraplegia, complete; H91.09 Ototoxic hearing loss, unspecified ear; G93.5 Compression of brain; E86.0 Dehydration; I95.9 Hypotension, unspecified; G91.9 Hydrocephalus, unspecified; R00.0 Tachycardia, unspecified; M62.81 Muscle weakness (generalized); M41.84 Other forms of scoliosis, thoracic region; Z79.4 Long term (current) use of insulin; Z98.2 Presence of cerebrospinal fluid drainage device; Z85.51 Personal history of malignant neoplasm of bladder; Z93.2 Ileostomy status; Z79.899 Other long term (current) drug therapy; Z90.6 Acquired absence of other parts of urinary tract; Z48.816 Encounter for surgical aftercare following surgery on the genitourinary system; X58.XXXD Exposure to other specified factors, subsequent encounter ==

== ENCOUNTER → 2021-11-25 | Outpatient (CLI) | payer OTHER | LOC: HYPER 09:53 | PROVIDERS: ATTEND Specialist | DX: E10.622 Type 1 diabetes mellitus with other skin ulcer (principal); L89.314 Pressure ulcer of right buttock, stage 4; L89.324 Pressure ulcer of left buttock, stage 4; L98.416 Non-pressure chronic ulcer of buttock with bone involvement without evidence of necrosis; L89.154 Pressure ulcer of sacral region, stage 4; L89.224 Pressure ulcer of left hip, stage 4; L89.214 Pressure ulcer of right hip, stage 4; L98.496 Non-pressure chronic ulcer of skin of other sites with bone involvement without evidence of necrosis; L89.623 Pressure ulcer of left heel, stage 3; L97.421 Non-pressure chronic ulcer of left heel and midfoot limited to breakdown of skin; S81.8 Open wound of lower leg; L84 Corns and callosities; E10.69 Type 1 diabetes mellitus with other specified complication; M46.28 Osteomyelitis of vertebra, sacral and sacrococcygeal region; E10.40 Type 1 diabetes mellitus with diabetic neuropathy, unspecified; R26.89 Other abnormalities of gait and mobility; R63.6 Underweight; E10.649 Type 1 diabetes mellitus with hypoglycemia without coma; E10.21 Type 1 diabetes mellitus with diabetic nephropathy; D64.9 Anemia, unspecified; D84.9 Immunodeficiency, unspecified; D47.3 Essential (hemorrhagic) thrombocythemia; G82.21 Paraplegia, complete; H91.09 Ototoxic hearing loss, unspecified ear; G93.5 Compression of brain; E86.0 Dehydration; I95.9 Hypotension, unspecified; G91.9 Hydrocephalus, unspecified; R00.0 Tachycardia, unspecified; M62.81 Muscle weakness (generalized); M41.84 Other forms of scoliosis, thoracic region; Z79.4 Long term (current) use of insulin; Z98.2 Presence of cerebrospinal fluid drainage device; Z85.51 Personal history of malignant neoplasm of bladder; Z93.2 Ileostomy status; Z90.6 Acquired absence of other parts of urinary tract; Z48.816 Encounter for surgical aftercare following surgery on the genitourinary system; X58.XXXD Exposure to other specified factors, subsequent encounter ==

== ENCOUNTER → 2021-12-16 | Outpatient (CLI) | payer OTHER | LOC: HYPER 08:15 | PROVIDERS: ATTEND Specialist | DX: E10.622 Type 1 diabetes mellitus with other skin ulcer (principal); L89.314 Pressure ulcer of right buttock, stage 4; L89.324 Pressure ulcer of left buttock, stage 4; L98.416 Non-pressure chronic ulcer of buttock with bone involvement without evidence of necrosis; L89.154 Pressure ulcer of sacral region, stage 4; L89.224 Pressure ulcer of left hip, stage 4; L89.214 Pressure ulcer of right hip, stage 4; L98.496 Non-pressure chronic ulcer of skin of other sites with bone involvement without evidence of necrosis; L89.623 Pressure ulcer of left heel, stage 3; L97.421 Non-pressure chronic ulcer of left heel and midfoot limited to breakdown of skin; S81.8 Open wound of lower leg; L84 Corns and callosities; E10.69 Type 1 diabetes mellitus with other specified complication; M46.28 Osteomyelitis of vertebra, sacral and sacrococcygeal region; E10.40 Type 1 diabetes mellitus with diabetic neuropathy, unspecified; R26.89 Other abnormalities of gait and mobility; R63.6 Underweight; E10.649 Type 1 diabetes mellitus with hypoglycemia without coma; E10.21 Type 1 diabetes mellitus with diabetic nephropathy; D64.9 Anemia, unspecified; D84.9 Immunodeficiency, unspecified; D47.3 Essential (hemorrhagic) thrombocythemia; G82.21 Paraplegia, complete; H91.09 Ototoxic hearing loss, unspecified ear; G83.5 Locked-in state; E86.0 Dehydration; I95.9 Hypotension, unspecified; G91.9 Hydrocephalus, unspecified; R00.0 Tachycardia, unspecified; M62.81 Muscle weakness (generalized); M41.84 Other forms of scoliosis, thoracic region; Z79.4 Long term (current) use of insulin; Z98.2 Presence of cerebrospinal fluid drainage device; Z85.51 Personal history of malignant neoplasm of bladder; Z93.2 Ileostomy status; Z90.6 Acquired absence of other parts of urinary tract; Z48.816 Encounter for surgical aftercare following surgery on the genitourinary system; X58.XXXD Exposure to other specified factors, subsequent encounter ==

== ENCOUNTER → 2021-12-23 | Outpatient (CLI) | payer OTHER | LOC: HYPER 09:21 | PROVIDERS: ATTEND Specialist | DX: E10.622 Type 1 diabetes mellitus with other skin ulcer (principal); L89.224 Pressure ulcer of left hip, stage 4; L89.214 Pressure ulcer of right hip, stage 4; L89.154 Pressure ulcer of sacral region, stage 4; L89.314 Pressure ulcer of right buttock, stage 4; L89.213 Pressure ulcer of right hip, stage 3; L98.415 Non-pressure chronic ulcer of buttock with muscle involvement without evidence of necrosis; L89.323 Pressure ulcer of left buttock, stage 3; L98.495 Non-pressure chronic ulcer of skin of other sites with muscle involvement without evidence of necrosis; E10.621 Type 1 diabetes mellitus with foot ulcer; L89.623 Pressure ulcer of left heel, stage 3; L98.421 Non-pressure chronic ulcer of back limited to breakdown of skin; S81.8 Open wound of lower leg; E10.40 Type 1 diabetes mellitus with diabetic neuropathy, unspecified; E10.69 Type 1 diabetes mellitus with other specified complication; M46.28 Osteomyelitis of vertebra, sacral and sacrococcygeal region; R26.89 Other abnormalities of gait and mobility; M62.81 Muscle weakness (generalized); R63.6 Underweight; E10.649 Type 1 diabetes mellitus with hypoglycemia without coma; D64.9 Anemia, unspecified; L84 Corns and callosities; G82.21 Paraplegia, complete; D84.9 Immunodeficiency, unspecified; D47.3 Essential (hemorrhagic) thrombocythemia; M41.84 Other forms of scoliosis, thoracic region; G91.9 Hydrocephalus, unspecified; G93.5 Compression of brain; E86.0 Dehydration; I95.9 Hypotension, unspecified; R00.0 Tachycardia, unspecified; E10.21 Type 1 diabetes mellitus with diabetic nephropathy; H91.90 Unspecified hearing loss, unspecified ear; Z68.1 Body mass index [BMI] 19.9 or less, adult; Z85.51 Personal history of malignant neoplasm of bladder; Z79.899 Other long term (current) drug therapy; Z93.2 Ileostomy status; Z98.2 Presence of cerebrospinal fluid drainage device; Z90.6 Acquired absence of other parts of urinary tract; Z90.79 Acquired absence of other genital organ(s); X58.XXXD Exposure to other specified factors, subsequent encounter ==

== ENCOUNTER 2022-01-06 19:05 | Inpatient (IN) | payer OTHER ==
[~2022-01-06] VITALS: Ht 144.8 cm; Wt 45.5 kg
[2022-01-06] VITALS (8 sets, daily range): BP systolic 113–134; BP diastolic 50–71
[2022-01-06 19:54] LABS: HEMATOCRIT 25.7 % (42.0-52.0); HEMOGLOBIN 7.9 gm/dL (14.0-18.0); MCH 24.4 pg (26.0-34.0); MCHC 30.8 g/dL (28.0-37.0); MCV 79.1 fL (80.0-100.0); RBC 3.25 mil/uL (4.50-6.00); RDW 23.1 % (10.5-14.5); WBC 19.2 thou/uL (4.0-11.0)
[2022-01-06 19:59] LABS: URINE BILIRUBIN NEGATIVE (Negative); URINE BLOOD 3+ (Negative); URINE CLARITY CLEAR; URINE COLOR YELLOW; URINE GLUCOSE-RANDOM* NEGATIVE (Negative); URINE KETONES TRACE (Negative); URINE NITRITE-REFLEX NEGATIVE (Negative); URINE PROTEIN (DIPSTICK) 2+ (Negative); URINE SPECIFIC GRAVITY 1.015 (1.005-1.035); URINE UROBILINOGEN 0.2 E.U./dl (0.2-1.0)
[2022-01-06 20:06] LABS: URINE LEUKOCYTES-REFLEX 3+ (Negative)
[2022-01-06 20:40] LABS: CASTS None Seen /LPF (None Seen); SQUAMOUS None Seen /LPF (0-3); URINE WBC-REFLEX >25 Many /HPF (0-5)
[2022-01-06 20:42] LABS: BACTERIA-REFLEX >30 Many /HPF (None Seen); TRIPLE PHOSPHATE CRYSTALS 4-10 Moderate /LPF (None Seen)
[2022-01-06 21:32] LABS: POTASSIUM 4.9 mmol/L (3.5-5.1); TOTAL BILIRUBIN 0.5 mg/dL (0.2-1.0); TOTAL PROTEIN 6.9 g/dL (6.4-8.2)
[2022-01-06 22:27] LABS: ALBUMIN 1.4 g/dL (3.4-5.0); CALCIUM 7.9 mg/dL (8.5-10.1)
[2022-01-07] VITALS (41 sets, daily range): BP systolic 85–119; BP diastolic 41–67
[2022-01-07] MEDS ORDERED: LANTUS SUBQ (01:44)
[2022-01-07] MEDS ORDERED: NOVOLIN 70100 UNIT/3 SUBQ (01:45)
[2022-01-07] MEDS ORDERED: ESOMEPRAZOLE MA10 MG PO (01:46)
[2022-01-07] MEDS ORDERED: ONDANSETRON HCL4 M2 PO (01:48)
[2022-01-07] MEDS ORDERED: GENTAMICIN SULF30 GM TRANSDERM (01:50)
[2022-01-07] MEDS ORDERED: HYDROCODON-ACE1 EAC7 PO (01:53)
[2022-01-07 03:19] LABS: HEMOGLOBIN 6.7 gm/dL (14.0-18.0); RDW 22.5 % (10.5-14.5)
[2022-01-07 03:21] LABS: ABSOLUTE NEUTROPHILS 17.7 thou/uL (1.4-8.2); BASOPHILS 0.5 % (0.0-2.0); EOSINOPHILS 1.2 % (0.0-3.0); HEMATOCRIT 22.2 % (42.0-52.0); LYMPHOCYTES 0.5 % (24.0-44.0); MCH 24.6 pg (26.0-34.0); MCHC 30.2 g/dL (28.0-37.0); MCV 81.7 fL (80.0-100.0); POLYS 95.8 % (36.0-66.0); RBC 2.72 mil/uL (4.50-6.00); WBC 18.5 thou/uL (4.0-11.0)
[2022-01-07 03:23] LABS: PLATELET COUNT 337 thou/uL (150-400)
[2022-01-07 03:34] LABS: CALCIUM 7.9 mg/dL (8.5-10.1); CREATININE 0.9 mg/dL (0.7-1.3)
[2022-01-07 03:36] LABS: POTASSIUM 3.1 mmol/L (3.5-5.1)
[2022-01-07 03:37] LABS: APTT 35.9 Seconds (24.5-32.8); INR 1.32; PROTIME 14.2 Seconds (10.5-12.1)
--- NOTE | 2022-01-07 07:02 | EKG ---
[address] [employer] [place] [address] ELECTROCARDIOGRAM REPORT Name: LÓPEZ BOLAND Room #: 237-P ADM IN M.R.#: [id number] Admission: 01/06/22 Attend Phys: Tom Merrill DO Discharge: Date of : 85 Report #: [id number] [facility] ED Test Date: 2022-01-06 Test Time: 19:27:12 Pat Name: LÓPEZ BOLAND Department: Room: 237 Gender: M Mechanical Design Technician: RAND : 1985 Requested By: Yordy Dunham Order Number: [id number] MD: Pako Hawley Measurements Intervals [place] Rate: 148 P: 67 CT: 110 QRS: 92 QRSD: 62 T: 54 QT: 270 QTc: 424 Interpretive Statements Sinus tachycardia Consider right atrial enlargement Borderline right axis deviation Consider left ventricular hypertrophy Compared to ECG 07/17/2021 08:38:04 Ventricular premature complex(es) no longer present ST (T wave) deviation no longer present Electronically Signed On 01-07-2022 7:02:44 COST RECOVERY TECHNICIAN by Pako Hawley [email or web address] <ELECTRONICALLY SIGNED> By: Pako Hawley MD, FAC 01/07/2202 26 26 Pako Hawley MD, [facility] /EPI
[2022-01-07 11:32] LABS: HEMATOCRIT 22.5 % (42.0-52.0)
[2022-01-07 11:34] LABS: HEMOGLOBIN 6.7 gm/dL (14.0-18.0)
[2022-01-08] VITALS (47 sets, daily range): BP systolic 96–144; BP diastolic 53–94
[2022-01-08 03:24] LABS: BASOPHILS 0.3 % (0.0-2.0); EOSINOPHILS 0.1 % (0.0-3.0); HEMOGLOBIN 6.8 gm/dL (14.0-18.0); MCV 81.7 fL (80.0-100.0); WBC 12.1 thou/uL (4.0-11.0)
[2022-01-08 03:26] LABS: ABSOLUTE NEUTROPHILS 11.7 thou/uL (1.4-8.2); HEMATOCRIT 22.3 % (42.0-52.0); LYMPHOCYTES 0.6 % (24.0-44.0); MCH 24.9 pg (26.0-34.0); MCHC 30.5 g/dL (28.0-37.0); MONOCYTES 2.8 % (1.0-8.0); PLATELET COUNT 299 thou/uL (150-400); POLYS 96.2 % (36.0-66.0); RBC 2.73 mil/uL (4.50-6.00); RDW 22.1 % (10.5-14.5)
[2022-01-08 04:00] LABS: CALCIUM 8.2 mg/dL (8.5-10.1); CREATININE 0.8 mg/dL (0.7-1.3)
[2022-01-08 04:07] LABS: POTASSIUM 2.6 mmol/L (3.5-5.1)
--- NOTE | 2022-01-08 11:24 | HC ---
[facility] [address] [address] CONSULTATION Name: LÓPEZ BOLAND Room #: 237-P ADM IN M.R.#: [id number] Admission: 01/06/22 Attend Phys: Tom Merrill DO Discharge: Date of : 85 Report #: [id number] THIS REPORT FOR: cc: Phyllis Cohen,Galdino Quiros MD ~ DATE OF SERVICE: 01/07/2022 INFECTIOUS DISEASE CONSULTATION ATTENDING PHYSICIAN: Dr. Merrill. REASON FOR EVALUATION: Gram-negative septicemia, suspected complicated urinary tract source, although cannot exclude osteomyelitis, sacral decubitus ulcer. HISTORY OF PRESENT ILLNESS: Chart reviewed. The patient examined. This is a 36-year-old known to myself, who has extensive medical history given his age, who has underlying quadriplegia, status post hydrocephalus with a [employer] shunt, previous bone marrow transplant. Has had longstanding neurogenic bladder and has an urostomy in addition to a diverting colostomy, who was hospitalized fairly frequently, although it has been a number of months now, sepsis related issues, who apparently developed some nausea and emesis at the care facility, was evaluated and was found to have leukocytosis, it was unclear whether the wounds felt to have deteriorated. He is unable to give details of the history. Initial evaluation was unremarkable. White count is elevated at 19.2, hemoglobin of 7.9. Lactic acid initially was 1.3. Urinalysis did show marked pyuria, bacteriuria ____ showed progression based on previous with large decubitus ulcer, left-sided involving the ischial site, question of a septic left hip arthritis with osteomyelitis. Chest x-ray was otherwise unremarkable. Coronavirus testing was negative. Sodium was found to be 120, glucose of 345. Albumin 1.4. Blood cultures collected at time of admission are now with growth of gram-negative rods, early indication suggest Klebsiella. Awaiting ____, 07/2021 did have a urine culture with Klebsiella that was generally susceptible, so empirically started on vancomycin and Zosyn. He is somewhat responsive today. He denies significant pain. In addition, denies any dyspnea and is notably retained on ambient air. ALLERGIES: LISTED TO LISINOPRIL. CURRENT MEDICATIONS: Include: Vancomycin, apixaban, famotidine, metoprolol, Zosyn, p.r.n. analgesics, antiemetics. PAST MEDICAL HISTORY: As described above, quadriplegia, history of hydrocephalus with [employer] shunt, previous bone marrow transplant, neurogenic bladder with a cystectomy and urostomy, has a diverting colostomy with wound healing, otherwise enteral feeding tube as well, chronic osteomyelitis secondary to deep [facility] [address] [place] [address] CONSULTATION Name: LÓPEZ BOLAND Room #: 237-P ADM IN M.R.#: [id number] Admission: 01/06/22 Attend Phys: Tom Merrill DO Discharge: Date of : 85 Report #: [id number] decubitus ulcer, previous history of C. diff colitis, diabetes mellitus type 2, chronic renal insufficiency. SOCIAL HISTORY: Nonsmoker, no ethanol, no illicit drug use. FAMILY HISTORY: Noncontributory. REVIEW OF SYSTEMS: Fairly limited with exception of the above. PHYSICAL EXAMINATION: GENERAL: He does respond, seems to be relatively oriented, chronically ill, cachectic. VITAL SIGNS: Temperature 98.9, pulse 123, respirations 28, blood pressure 102/57. SKIN: Warm, dry, no rashes. HEENT: Normocephalic. Extraocular muscles intact. NECK: Supple. LUNGS: Diminished breath sounds. Few crackles at the bases. HEART: Tachycardic, regular, do not appreciate a murmur. ABDOMEN: Has a urostomy, diverting colostomy as well as enteral feeding tube, somewhat firm. There is no overt peritoneal signs. EXTREMITIES: Contractures of the lower extremities. GENITOURINARY AND RECTAL: Deferred. LABORATORY DATA: Blood cultures described above. MRSA screen was negative. Most recent hemoglobin and hematocrit 6.7 and 22.5. Lactic acid 1.4. Procalcitonin markedly elevated at 115.95. Protime 14.2, INR of 1.32. Electrolytes: Sodium repeat was 133, potassium 3.1, chloride 102, bicarbonate is 19, anion gap of 12, BUN and creatinine 33 and 0.9. Estimated GFR of 116. CBC followup 18.5 white count, H and H 6.7 and 22.2, platelets of 337. Coronavirus testing was negative. Chest x-ray showed no acute process. CT abdomen and pelvis, progression of the large decubitus wound posterior to the left hip. Findings suggestive of septic left hip joint and osteoarthritis, bilateral renal stones, limited imaging, question of pyelonephritis on the left. ASSESSMENT AND PLAN: Gram-negative septicemia, apparently due to Klebsiella. I would suspect a complicated urinary tract source. Certainly, can exclude a deep wound infection, likely osteomyelitis and septic arthritis involving left ____. We will continue broad-spectrum antimicrobial therapy. At this point, he is overall less hemodynamically stable. Continue supportive measures. He is critically ill and at risk for further complications and clinical deterioration. [facility] [address] [place] [address] CONSULTATION Name: LÓPEZ BOLAND Room #: 237-P ADM IN .R.#: [id number] Admission: 01/06/22 Attend Phys: Tom Merrill DO Discharge: Date of : 85 Report #: [id number] Introduce incentive spirometry, optimize his nutritional status that wound care has prescribed. <ELECTRONICALLY SIGNED> By: Galdino Nelson MD 01/08/22 1124 [id number] Galdino Nelson MD /nt
[2022-01-09] VITALS (120 sets, daily range): BP systolic 74–142; BP diastolic 37–93
[2022-01-09 01:07] LABS: HEMATOCRIT 32.5 % (42.0-52.0); MCH 25.8 pg (26.0-34.0); MCV 86.1 fL (80.0-100.0); RBC 3.77 mil/uL (4.50-6.00); RDW 21.1 % (10.5-14.5); WBC 21.9 thou/uL (4.0-11.0)
[2022-01-09 01:09] LABS: CALCIUM 8.1 mg/dL (8.5-10.1); CREATININE 0.8 mg/dL (0.7-1.3); POTASSIUM 3.4 mmol/L (3.5-5.1)
[2022-01-09 01:11] LABS: HEMOGLOBIN 9.7 gm/dL (14.0-18.0)
[2022-01-09 09:18] LABS: BE(vivo) -21.5 mmol/L (-2 to +3); HCO3 8.9 mmol/L (22.0-26.0); PCO2 36.9 mmHg (35.0-45.0); PO2 77.4 mmHg (80.0-100.0); sO2 87.6 % (92.0-98.0)
[2022-01-09 09:19] LABS: pH 7.002 (7.360-7.450)
[2022-01-09 11:03] LABS: CALCIUM 7.5 mg/dL (8.5-10.1); CREATININE 0.8 mg/dL (0.7-1.3); POTASSIUM 3.4 mmol/L (3.5-5.1)
[2022-01-09 12:43] LABS: ALBUMIN 1.2 g/dL (3.4-5.0); DIRECT BILIRUBIN 0.2 mg/dL (<0.1-0.2); TOTAL BILIRUBIN 0.4 mg/dL (0.2-1.0); TOTAL PROTEIN 4.8 g/dL (6.4-8.2)
--- NOTE | 2022-01-09 13:23 | HC ---
[facility] [place] [address] [place] [address] CONSULTATION Name: LÓPEZ BOLAND Room #: 237-P ADM IN M.R.#: [id number] Admission: 01/06/22 Attend Phys: Tom Merrill DO Discharge: Date of : 85 Report #: [id number] THIS REPORT FOR: cc: Phyllis Cohen,Phyllis Bassett,Eric Hess MD ~ DATE OF SERVICE: 01/07/2022 CHIEF COMPLAINT: Sacral and gluteal pressure ulcerations. HISTORY OF PRESENT ILLNESS: This is a 36-year-old male patient with whom I am familiar from multiple previous hospitalizations. The patient has a history of paraplegia due to a prior Chiari malformation. He has had severe muscle wasting and severe protein-calorie malnutrition, has developed pressure ulcers to the sacral and gluteal regions and is admitted to the hospital presently, possibly due to wounds versus possible urinary tract infection. The patient states he is uncomfortable but he is cooperative. PAST MEDICAL HISTORY: Positive for history of previous diverting colostomy, type 2 diabetes mellitus, severe protein-calorie malnutrition, status post PEG placement, paraplegia due to previous Chiari malformation. He has been cared for at the [facility]. He apparently has had a recent CT scan of the abdomen and pelvis that shows progression of the pressure ulcer to the left hip with findings suggestive of possible septic left hip joint and osteomyelitis involving the posterior left femoral head. ALLERGIES: INCLUDE LISINOPRIL. MEDICATIONS: Include acetaminophen, Eliquis, epinephrine, famotidine, metoprolol, norepinephrine, ondansetron, Zosyn, vancomycin, vasopressin. SOCIAL HISTORY: The patient lives in a nursing care facility. FAMILY HISTORY: Noncontributory. REVIEW OF SYSTEMS: CONSTITUTIONAL: The patient complains of generalized weakness. EYES: The patient denies visual changes, redness, drainage. ENT: The patient denies earache, nasal drainage, sore throat. CARDIOVASCULAR: Denies chest pain, palpitations, diaphoresis. PULMONARY: Denies cough, shortness of breath. GASTROINTESTINAL: Denies nausea or abdominal pain. ORTHOPEDIC: The patient complains of significant discomfort in the pelvic region associated with his pressure ulcerations. Others systems in a 14-point review of systems are negative. [address] [address] CONSULTATION Name: LÓPEZ BOLAND Room #: 237-P [facility].#: [id number] Admission: 01/06/22 Attend Phys: Tom Merrill DO Discharge: Date of : 85 Report #: [id number] PHYSICAL EXAMINATION: VITAL SIGNS: The patient's vital at this time include temperature 37.2, pulse 123, respiration of 28, blood pressure 102/57. GENERAL: This is a chronically ill-appearing male patient who appears to be in [id number] discomfort. HEENT: Normocephalic. NECK: Supple. LUNGS: Diminished. HEART: Regular rhythm. ABDOMEN: Soft. Colostomy feeding tube are noted. Pelvic region demonstrates large ulcerations involving the sacral region and buttocks bilaterally. There is exposed bone in the base. There is a thin layer of granulation tissue. These appear to be quite larger than the last time I saw him. NEUROLOGIC: The patient is paraplegic. LABORATORY STUDIES: Include white blood cell count 18.5 with a hemoglobin of 6.7, hematocrit of 22.2. Sodium 133, potassium 3.1, chloride 102, CO2 of 19, BUN 33, creatinine 0.9, glucose 215. Albumin is very low at 1.4. Imaging with CT scan demonstrates interval progression of large decubitus wound posterior to the left hip with findings suggestive of septic left hip joint and osteomyelitis involving the posterior left femoral head. CLINICAL IMPRESSION: 1. Stage IV pressure ulcerations to the sacrum and gluteal region bilaterally. 2. Osteomyelitis of the left femoral head, possible septic left hip joint arthritis seen on CT scan. 3. Sepsis wound versus possible urinary tract infection. 4. Paraplegia. 5. Severe protein-calorie malnutrition despite feeding tube in place. RECOMMENDATIONS: At this point in time, we will recommend a quarter strength Dakin's moist gauze dressing at this time. He may need aggressive surgical intervention with bony debridement, possible left hip disarticulation, IV antibiotics have been initiated. We would certainly wish to discuss infectious disease issues with Infectious Disease who are currently seeing him as well. I appreciate being asked to see him in consultation. <ELECTRONICALLY SIGNED> By: Eric Oliveira MD 01/09/22 1323 [id number] Eric Oliveira MD /nt
[2022-01-09 15:13] LABS: BE(vivo) -14.9 mmol/L (-2 to +3); HCO3 10.3 mmol/L (22.0-26.0); PCO2 23.1 mmHg (35.0-45.0); PO2 159.6 mmHg (80.0-100.0); pH 7.267 (7.360-7.450); sO2 98.8 % (92.0-98.0)
[2022-01-10] VITALS (134 sets, daily range): BP systolic 92–141; BP diastolic 39–79
[2022-01-10 03:48] LABS: BE(vivo) -9.1 mmol/L (-2 to +3); HCO3 13.7 mmol/L (22.0-26.0); PCO2 22.6 mmHg (35.0-45.0); PO2 94.4 mmHg (80.0-100.0); pH 7.401 (7.360-7.450); sO2 97.4 % (92.0-98.0)
[2022-01-10 05:32] LABS: ALBUMIN 1.1 g/dL (3.4-5.0); CALCIUM 8.1 mg/dL (8.5-10.1); CREATININE 1.1 mg/dL (0.7-1.3); TOTAL BILIRUBIN 0.6 mg/dL (0.2-1.0); TOTAL PROTEIN 5.8 g/dL (6.4-8.2)
[2022-01-10 05:34] LABS: POTASSIUM 2.9 mmol/L (3.5-5.1)
[2022-01-10 05:44] LABS: ABSOLUTE NEUTROPHILS 17.2 thou/uL (1.4-8.2); BASOPHILS 0.2 % (0.0-2.0); EOSINOPHILS 0.1 % (0.0-3.0); HEMATOCRIT 34.3 % (42.0-52.0); HEMOGLOBIN 10.3 gm/dL (14.0-18.0); MCH 25.8 pg (26.0-34.0); MCHC 29.9 g/dL (28.0-37.0); MCV 86.2 fL (80.0-100.0); MONOCYTES 2.6 % (1.0-8.0); POLYS 96.1 % (36.0-66.0); RBC 3.98 mil/uL (4.50-6.00); RDW 22.1 % (10.5-14.5); WBC 17.9 thou/uL (4.0-11.0)
[2022-01-10 05:45] LABS: PLATELET COUNT 150 thou/uL (150-400)
[2022-01-10 06:35] LABS: ANISOCYTOSIS 3+; PLATELET ESTIMATE DECREASED; SCHISTOCYTES FEW
[2022-01-10 06:36] LABS: BURR CELLS FEW; TARGET CELLS 1+
[2022-01-10 06:37] LABS: POIKILOCYTOSIS 1+
[2022-01-10 13:41] LABS: CALCIUM 7.8 mg/dL (8.5-10.1); CREATININE 1.1 mg/dL (0.7-1.3); MAGNESIUM 1.2 mg/dL (1.8-2.4)
[2022-01-10 13:43] LABS: POTASSIUM 1.9 mmol/L (3.5-5.1)
[2022-01-10 14:49] LABS: CREATININE 1.1 mg/dL (0.7-1.3); MAGNESIUM 1.2 mg/dL (1.8-2.4)
[2022-01-10 14:56] LABS: POTASSIUM 1.8 mmol/L (3.5-5.1)
[2022-01-10 19:04] LABS: CALCIUM 7.8 mg/dL (8.5-10.1); MAGNESIUM 2.5 mg/dL (1.8-2.4)
[2022-01-10 19:07] LABS: POTASSIUM 2.5 mmol/L (3.5-5.1)
[2022-01-11] VITALS (49 sets, daily range): BP systolic 85–150; BP diastolic 34–88
[2022-01-11 03:31] LABS: ABSOLUTE NEUTROPHILS 9.7 thou/uL (1.4-8.2); BASOPHILS 0.1 % (0.0-2.0); EOSINOPHILS 0.2 % (0.0-3.0); HEMATOCRIT 26.6 % (42.0-52.0); HEMOGLOBIN 8.5 gm/dL (14.0-18.0); LYMPHOCYTES 2.2 % (24.0-44.0); MCH 26.1 pg (26.0-34.0); MCHC 31.8 g/dL (28.0-37.0); MONOCYTES 4.2 % (1.0-8.0); PLATELET COUNT 123 thou/uL (150-400); POLYS 93.3 % (36.0-66.0); RBC 3.25 mil/uL (4.50-6.00); RDW 21.8 % (10.5-14.5); WBC 10.5 thou/uL (4.0-11.0)
[2022-01-11 04:27] LABS: ALBUMIN 2.2 g/dL (3.4-5.0); CALCIUM 7.8 mg/dL (8.5-10.1); CREATININE 0.8 mg/dL (0.7-1.3); POTASSIUM 3.1 mmol/L (3.5-5.1); TOTAL BILIRUBIN 1.3 mg/dL (0.2-1.0)
[2022-01-11 04:50] LABS: BE(vivo) 1.4 mmol/L (-2 to +3); HCO3 25.5 mmol/L (22.0-26.0); pH 7.445 (7.360-7.450); sO2 97.5 % (92.0-98.0)
[2022-01-11 13:00] LABS: CALCIUM 7.8 mg/dL (8.5-10.1); CREATININE 0.8 mg/dL (0.7-1.3); MAGNESIUM 1.7 mg/dL (1.8-2.4); POTASSIUM 3.2 mmol/L (3.5-5.1)
[2022-01-11 18:06] LABS: MAGNESIUM 2.5 mg/dL (1.8-2.4); POTASSIUM 3.4 mmol/L (3.5-5.1)
[2022-01-12] VITALS (43 sets, daily range): BP systolic 96–130; BP diastolic 48–89
[2022-01-12 04:41] LABS: HEMATOCRIT 24.5 % (42.0-52.0); HEMOGLOBIN 7.9 gm/dL (14.0-18.0); MCH 26.6 pg (26.0-34.0); MCHC 32.2 g/dL (28.0-37.0); MCV 82.6 fL (80.0-100.0); RBC 2.96 mil/uL (4.50-6.00); RDW 21.3 % (10.5-14.5); WBC 8.8 thou/uL (4.0-11.0)
[2022-01-12 04:51] LABS: CALCIUM 7.7 mg/dL (8.5-10.1); CREATININE 0.7 mg/dL (0.7-1.3); POTASSIUM 3.4 mmol/L (3.5-5.1)
--- NOTE | 2022-01-27 10:22 | O ---
[facility] [place] [address] [place] [address] OPERATIVE REPORT Name: LÓPEZ BOLAND Room #: 237-P [facility] IN M.R.#: [id number] Admission: 01/06/22 Attend Phys: Tom Merrill DO Discharge: 01/13/22 Date of : 85 Report #: [id number] THIS REPORT FOR: cc: Phyllis Cohen,Phyllis Christie,William Leo MD ~ DATE OF SERVICE: 01/12/2022 PREOPERATIVE DIAGNOSIS: Right hip pressure ulcer, stage 4, 5.5 x 5 cm. POSTOPERATIVE DIAGNOSIS: Right hip pressure ulcer, stage 4, 5.5 x 5 cm. OPERATION: Excisional debridement down through bone, right hip pressure ulcer, stage 4, 5.5 x 5 cm. SURGEON: William Pena MD ANESTHESIA: Local. ESTIMATED BLOOD LOSS: Minimal. SPECIMENS: Bone for culture and sensitivity. DESCRIPTION OF PROCEDURE: After informed consent was obtained, the patient was placed in the left lateral decubitus position in the ICU bed. This was an excisional debridement. Depth was down through the bone. Total 100% of the wound was debrided. Post-debridement wound area was 5.5 x 5 cm. I used scissors to sharply dissect away the tendon. There was then bone that was easily biopsied due to the weakened nature of the bone. Some of it was sent for culture. The area was then irrigated and it was packed with sterile gauze. Sterile dressings were applied. COMPLICATIONS: None. DISPOSITION: The patient was taken to recovery in a satisfactory condition. <ELECTRONICALLY SIGNED> By: William Pena MD 01/27/22 1022 [id number] William Pena MD /nt
== END 2022-01-13 | DRG 3 ==
LOC: ER 19:05 → ICU 21:06 → EROBS 21:06 → ICU 22:15
PROVIDERS: Anesthesiology; Emergency Medicine; Hospitalist; Nurse Practitioner Family; Pediatrics; Specialist; ADMIT Pediatrics; ATTEND Pediatrics
PROC: 30233N1 Transfusion of Nonautologous Red Blood Cells into Peripheral Vein, Percutaneous Approach (ICD-10-PCS; principal; 2022-01-08)
PROC: 5A09357 Assistance with Respiratory Ventilation, Less than 24 Consecutive Hours, Continuous Positive Airway Pressure (ICD-10-PCS; 2022-01-09)
PROC: 5A1955Z Respiratory Ventilation, Greater than 96 Consecutive Hours (ICD-10-PCS; 2022-01-09)
PROC: 0BH17EZ Insertion of Endotracheal Airway into Trachea, Via Natural or Artificial Opening (ICD-10-PCS; 2022-01-09)
PROC: 0QB60ZZ Excision of Right Upper Femur, Open Approach (ICD-10-PCS; 2022-01-12)
PROC: 0JH63XZ Insertion of Tunneled Vascular Access Device into Chest Subcutaneous Tissue and Fascia, Percutaneous Approach (ICD-10-PCS; 2022-01-13)
PROC: B548ZZA Ultrasonography of Superior Vena Cava, Guidance (ICD-10-PCS; 2022-01-13)
PROC: 03HY32Z Insertion of Monitoring Device into Upper Artery, Percutaneous Approach (ICD-10-PCS; 2022-01-13)
PROC: 0JPT3XZ Removal of Tunneled Vascular Access Device from Trunk Subcutaneous Tissue and Fascia, Percutaneous Approach (ICD-10-PCS; 2022-01-13)
PROC: B5181ZA Fluoroscopy of Superior Vena Cava using Low Osmolar Contrast, Guidance (ICD-10-PCS; 2022-01-13)
PROC: 02HV33Z Insertion of Infusion Device into Superior Vena Cava, Percutaneous Approach (ICD-10-PCS; 2022-01-13)
PROC: 02PYX3Z Removal of Infusion Device from Great Vessel, External Approach (ICD-10-PCS; 2022-01-13)
PROC: 0W993ZZ Drainage of Right Pleural Cavity, Percutaneous Approach (ICD-10-PCS; 2022-01-13)
PROC: 0BJ08ZZ Inspection of Tracheobronchial Tree, Via Natural or Artificial Opening Endoscopic (ICD-10-PCS; 2022-01-13)
PROC: 0B110F4 Bypass Trachea to Cutaneous with Tracheostomy Device, Open Approach (ICD-10-PCS; 2022-01-13)
PROC: 06H03DZ Insertion of Intraluminal Device into Inferior Vena Cava, Percutaneous Approach (ICD-10-PCS; 2022-01-13)
DX: A41.59 Other Gram-negative sepsis (principal); K94.23 Gastrostomy malfunction; L89.154 Pressure ulcer of sacral region, stage 4; E43 Unspecified severe protein-calorie malnutrition; J96.21 Acute and chronic respiratory failure with hypoxia; J96.22 Acute and chronic respiratory failure with hypercapnia; R65.21 Severe sepsis with septic shock; R57.1 Hypovolemic shock; J18.9 Pneumonia, unspecified organism; G92.8 Other toxic encephalopathy; L89.623 Pressure ulcer of left heel, stage 3; L89.324 Pressure ulcer of left buttock, stage 4; L89.314 Pressure ulcer of right buttock, stage 4; L89.214 Pressure ulcer of right hip, stage 4; L89.43 Pressure ulcer of contiguous site of back, buttock and hip, stage 3; N39.0 Urinary tract infection, site not specified; E87.1 Hypo-osmolality and hyponatremia; G82.20 Paraplegia, unspecified; N12 Tubulo-interstitial nephritis, not specified as acute or chronic; N17.9 Acute kidney failure, unspecified; G91.9 Hydrocephalus, unspecified; D68.59 Other primary thrombophilia; K56.7 Ileus, unspecified; Z94.81 Bone marrow transplant status; N31.9 Neuromuscular dysfunction of bladder, unspecified; I10 Essential (primary) hypertension; R53.81 Other malaise; E87.6 Hypokalemia; D69.6 Thrombocytopenia, unspecified; D63.8 Anemia in other chronic diseases classified elsewhere; B37.9 Candidiasis, unspecified; R74.01 Elevation of levels of liver transaminase levels; E83.42 Hypomagnesemia; E10.69 Type 1 diabetes mellitus with other specified complication; E10.65 Type 1 diabetes mellitus with hyperglycemia; Z88.8 Allergy status to other drugs, medicaments and biological substances; Z68.21 Body mass index [BMI] 21.0-21.9, adult; Y83.8 Other surgical procedures as the cause of abnormal reaction of the patient, or of later complication, without mention of misadventure at the time of the procedure; Y82.8 Other medical devices associated with adverse incidents
CPT/HCPCS: 10078; 10203; 85076